=== PATIENT | female | born 1940 | race Caucasian/White ===

== ENCOUNTER 2023-12-04 10:01 | Emergency (ER) | payer MEDICARE, BC ==
[2023-12-04] MEDS: IPRATROPIUM-ALBUTEROL 3 ML NEB INHALATION STA ×2 (10:21→11:17)
[2023-12-04 10:25] LABS: Glucose,Whole Blood 105 mg/dL (70-110)
[2023-12-04 10:33] VITALS: TEMP 98.1
[2023-12-04 10:36] LABS: Basophils # (A) 0.1 k/uL (0-0.2); Basophils % (A) 0 %; Eosinophils # (A) 0.3 k/uL (0-0.7); Eosinophils % (A) 2 %; HCT 46.5 % (34.0-46.0); HGB 15.1 gm/dL (11.4-16.0); Lymphocytes # (A) 2.1 k/uL (1.0-4.8); Lymphocytes % (A) 11 %; MCH 31.6 pg (25.0-35.0); MCHC 32.5 g/dL (31.0-37.0); MCV 97.1 fL (80.0-100.0); Mean Platelet Volume 8.2; Monocytes # (A) 1.2 k/uL (0-1.0); Monocytes % (A) 6 %; Neutrophils # (A) 14.6 k/uL (1.3-7.7); Neutrophils % (A) 79 %; Platelet Count 221 k/uL (150-450); RBC 4.79 m/uL (3.80-5.40); RDW 13.4 % (11.5-15.5); WBC 18.5 k/uL (3.8-10.6)
[2023-12-04 10:37] LABS: INR 0.9 (<1.2); Prothrombin Time 9.9 sec (10.0-12.5)
[2023-12-04 10:50] LABS: Partial Thromboplastin Time 19.2 sec (22.0-30.0)
--- NOTE | 2023-12-04 10:56 | CT ---
EXAMINATION TYPE: CODE STROKE: CT brain wo contr DATE OF EXAM: 12/04/2023 COMPARISON: None HISTORY: 83-year-old female Neuro deficits, cant see out of LT eye, code stroke TECHNIQUE: Examination was done in axial plane without intravenous contrast. Coronal and sagittal r econstructions performed. CT DLP: 1208 mGycm Automated exposure control for dose reduction was used. FINDINGS: There is no evidence of acute intracranial hemorrhage, acute ischemic changes, mass, mass-effect, or extra-axial fluid collection. There is no effacement of cerebral sulci or basal subarachnoid cister ns. There is no midline shift. Barrientos-white matter distinction is preserved. Mild/moderate generalized supratentorial volume loss. Mild ventricular prominence likely due to centr al cerebral atrophy. Moderate patchy confluence white matter hypodensities in both cerebral hemispher es. Moderate atherosclerotic calcifications bilateral carotid siphons. Rightward nasal septal deviation. Left-sided conchal bullosa. Small amount of fluid inferior left mas toid air cells. Paranasal sinuses are clear. Orbits and globes appear intact. IMPRESSION: 1. Mild to moderate generalized atrophy and moderate burden of chronic small vessel ischemic disease. No acute intracranial abnormality seen. 2. Small amount of fluid in the left mastoid air cells. Correlate for any mastoid pain to exclude mas toiditis.
[2023-12-04] MEDS: methylPREDNISolone SOD SUCCI 125 MG/2 ML VIAL IV STA (11:06)
[2023-12-04] MEDS: ASPIRIN 325 MG TAB PO STA (11:12)
[2023-12-04] MEDS: DIPH,PERTUS(ACELL)TETVAC-LF 0.5 ML VIAL IM ONE (11:12)
[2023-12-04] MEDS: TICAGRELOR 90 MG TAB PO STA (11:12)
--- NOTE | 2023-12-04 11:17 | CT ---
EXAMINATION TYPE: CT angio head neck DATE OF EXAM: 12/04/2023 COMPARISON: Brain same day HISTORY: 83 year-old female with neurologic deficit, acute, stroke suspected, unable to see out of le ft eye. TECHNIQUE: Contiguous axial scanning of the head and neck performed with IV Contrast, patient injecte d with 60 mL of Isovue 370. Coronal/sagittal reconstructions performed. 3-D reconstructions generated on a dedicated independent workstation. CT DLP: 314.5 mGycm Automated exposure control for dose reduction was used. FINDINGS: Neck: Advanced emphysematous change in the visualized upper lungs. Mild to moderate atherosclerotic arch calcifications with bovine configuration to the aortic arch. There are mild segmental stenoses at the distal bilateral subclavian arteries. There is a dominant right vertebral artery with mild to moderate atherosclerotic narrowing at its héctor gin. Both vertebral arteries are otherwise patent throughout the course. There is moderate atherosclerotic calcification at the right carotid bifurcation. This results in a m oderate, 60% stenosis of the bifurcation and mild, 25% stenosis of the origin of the ICA. NASCET cri teria was utilized. Remainder of the right ICA is patent. Moderate atherosclerotic calcification and plaque at the left carotid bifurcation and proximal left c arotid artery with mild, 30% stenosis at the carotid bulb and mild, 40% stenosis proximal left ICA ju st above the carotid bulb. NASCET criteria was utilized. HEAD: Dominant right vertebral artery. The nondominant left vertebral artery becomes even more hypoplastic at the V4 segment. Otherwise, the vertebral and basilar arteries are patent. Uniformly small caliber to the basilar artery with persistent origin left TICKET MAKER and a small, patent right posterior commu nicating artery seen. There is cut off of the P2 segment right TICKET MAKER. The bilateral internal carotid arteries show no significant stenosis. Remainder of the anterior circu lation is patent. No aneurysmal change is identified. IMPRESSION: NECK: 1. MODERATE ATHEROSCLEROTIC CHANGE OF THE BILATERAL CAROTID BIFURCATIONS. 2. ON THE RIGHT, THERE IS MODERATE, 60% STENOSIS OF THE BIFURCATION AND MILD, 25% STENOSIS AT THE HÉCTOR GIN OF THE ICA. 3. ON THE LEFT, THERE IS MILD, 30% STENOSIS AT THE CAROTID BULB AND MILD, 40% STENOSIS PROXIMAL ICA J UST ABOVE THE BULB. 4. DOMINANT RIGHT VERTEBRAL ARTERY WITH MILD TO MODERATE stenosis at its origin. 5. Advanced emphysema in the visualized upper lungs. HEAD: 6. RIGHT TICKET MAKER OCCLUSION AT THE P2 SEGMENT. Called to Dr. Cabrera in the ER at 11:15 AM. 7. ANATOMIC VARIATION WITH HYPOPLASTIC V4 SEGMENT LEFT VERTEBRAL ARTERY AND PERSISTENT ORIGIN L EFT TICKET MAKER.
--- NOTE | 2023-12-04 11:21 | CT ---
EXAMINATION TYPE: CT cervical spine wo con DATE OF EXAM: 12/04/2023 COMPARISON: None HISTORY: 83-year-old female with pain after Fall TECHNIQUE: Contiguous axial scanning of the cervical spine without IV contrast. Coronal and sagittal reconstructions performed. CT DLP: 269.3 mGycm Automated exposure control for dose reduction was used. FINDINGS: No craniocervical junction abnormality, predental space widening, or prevertebral soft tissue swellin g. Degenerative change and possible bony ankylosis at the C1 dens articulation. Moderate to advanced disc/endplate degenerative change C5-C7 levels along with hypertrophic facet and uncovertebral joint arthropathy throughout. Degenerative grade 1 anterolisthesis C2-C3, C3-C4, C4-C5, C7-T1, T1-T2, and T2-T3. Disc osteophyte complex may contribute to mild spinal canal stenosis at C4-C5 and C5-C6. No acute fracture seen of the cervical spine. Moderate bilateral neural foraminal stenoses at C5-C6 and mild to moderate C6-C7. IMPRESSION: NO ACUTE FRACTURE OF THE CERVICAL SPINE. Moderate overall spondylotic change with degenerative grade 1 spondylolisthesis C2-C5 levels as well as C7-T3 levels.
--- NOTE | 2023-12-04 11:30 | ED ---
General Adult HPI - General Chief complaint: Shortness of Breath Stated complaint: Fall, hypertension Time Seen by Provider: 12/04/23 10:08 Source: patient, family, EMS, RN notes reviewed, old records reviewed Mode of arrival: EMS Limitations: physical limitation - History of Present Illness Initial comments: Patient is an 83-year-old female presents emergency department for a fall at home. Was found down at home. Is chronically dependent on nasal cannula oxygen. Has a history of COPD, hypertension. States she felt well yesterday at 10:30 PM. Was seen by family yesterday around noon. Woke up this morning feeling "off" and weak on the left side. Was found down in front of her couch after falling. She states she did not lose consciousness. Unknown if she hit her head. Is not on blood thinners. Has a left arm skin tear. Complaining of left forearm pain as well. However patient is also complaining of left-sided weakness. EMS arrived and found that she was slumping more to the left and seemed to have some gaze deviation. Presents for further evaluation at this time. - Related Data Allergies Allergy/AdvReac Type Severity Reaction Status Date / Time No Known Allergies Allergy Verified 12/04/23 10:11 Review of Systems ROS Statement: Those systems with pertinent positive or pertinent negative responses have been documented in the HPI. Review of Systems: CONST: Denies fever EYES: Denies blurry vision ENT: Denies nasal congestion C/V: Denies Chest pain RESP: Denies shortness of breath GI: Denies abdominal pain : Denies dysuria SKIN: Denies rash. MSK: Endorses arm pain NEURO: Endorses left-sided weakness ROS Other: All systems not noted in ROS Statement are negative. Past Medical History Past Medical History: COPD, Hypertension Additional Past Medical History / Comment(s): 3LPM NC History of Any Multi-Drug Resistant Organisms: None Reported Past Surgical History: No Surgical Hx Reported Past Psychological History: No Psychological Hx Reported Smoking Status: Former smoker Past Alcohol Use History: Daily Past Drug Use History: None Reported General Exam - General Exam Comments Initial Comments: General: Appears in no acute distress. HEAD: Normal with no signs of head trauma. EYES: PERRLA, conjunctiva normal, no discharge. Pupils are 3 mm and equal bilaterally. Right-sided gaze deviation and preference. ENT: Hearing grossly intact, normal oropharynx. RESPIRATORY: Clear breath sounds bilaterally. No wheezes, rales, or rhonchi. C/V: Regular rate and rhythm. S1 and S2 auscultated, no edema, peripheral pulses 2+ and intact throughout ABD: Abd is soft, nontender, nondistended EXT: Weakness on the left upper and left lower extremity. Pelvis is stable. No midline spinal tenderness to palpation. No obvious deformities. Tenderness of the left elbow. SKIN: Skin tear on the left forearm. Bruising on the left forearm. NEURO: Alert and oriented x 4. NIH is 7. 1 point each for left upper and right left lower extremity weakness. 2 points for left upper extremity left lower extremity ataxia. 1 point for left-sided facial droop. 1 point for right-sided gaze deviation that does appear extinguishable. 1 point for left-sided partial hemianopsia. GCS currently 15. Limitations: physical limitation Course Vital Signs 12/04/23 12/04/23 12/04/23 10:02 10:23 10:32 Temperature 98.1 F Pulse Rate 112 H 106 H 103 H Respiratory 18 20 20 Rate Blood Pressure 166/102 O2 Sat by Pulse 96 Oximetry 12/04/23 12/04/23 11:17 11:26 Temperature Pulse Rate 103 H 106 H Respiratory 24 22 Rate Blood Pressure O2 Sat by Pulse Oximetry Medical Decision Making - Medical Decision Making Was pt. sent in by a medical professional or institution ([facility], OVEN HEATER HELPER, urgent care, hospital, or jail...) When possible be specific @ -No Did you speak to anyone other than the patient for history (EMS, parent, family, police, friend...)? What history was obtained from this source @ -EMS provided the history of how they found her at home with a left-sided slu mping and left-sided weakness. Did you review nursing and triage notes (agree or disagree)? Why? @ -I reviewed and agree with nursing and triage notes Were old charts reviewed (outside hosp., previous admission, EMS record, old EKG, old radiological studies, urgent care reports/EKG's, jail records)? Report findings @ -Old charts reviewed Differential Diagnosis (chest pain, altered mental status, abdominal pain women, abdominal pain men, vaginal bleeding, weakness, fever, dyspnea, syncope, headache, dizziness, GI bleed, back pain, seizure, CVA, palpatations, mental health, musculoskeletal)? @ -Differential CVA Ischemic stroke, hemorrhagic stroke, brain tumor, atypical migraine, Wernicke's encephalopathy, seizure, multiple sclerosis, meningitis, encephalitis, hypoglycemia, Guillain-Savage, electrolytes disturbance, myasthenia gravis.... This is not meant to be an all-inclusive list EKG interpreted by me (3pts min.). @ -As above X-rays interpreted by me (1pt min.). @ -X-rays of the elbow, forearm, chest unremarkable. CT interpreted by me (1pt min.). @ -CT brain reveals no obvious acute intracranial process. CT angiogram of the head and neck reveals a right TRAY SETTER occlusion. CT cervical spine negative for any obvious traumatic injury. U/S interpreted by me (1pt. min.). @ -None done What testing was considered but not performed or refused? (CT, X-rays, U/S, labs)? Why? @ -None What meds were considered but not given or refused? Why? @ -Considered thrombolytics however patient is outside of the window as she woke up with symptoms. Last known well was 10:30 PM last night. Did you discuss the management of the patient with other professionals (professionals i.e. , PA, OVEN HEATER HELPER, lab, RT, psych nurse, social service technician, community service technician, teacher, air defense control officer, hospice case manager)? Give summary @ -Discussed with Dr. Thompson of [facility]. He was in agreement with workup. He called me back after reviewing the imaging and saw the right TRAY SETTER segment occlusion. He would like the patient transferred to [facility] for further care and thrombectomy. Patient's family and patient were in agreement with this plan. He requested patient have permissive hypertension but treat if systolics over 220 or diastolics over 120. Requested 180 mg of Brilinta and 325 mg of aspirin. Was smoking cessation discussed for >3mins.? @ -No Was critical care preformed (if so, how long)? @ -Yes, 45 minutes. Were there social determinants of health that impacted care today? How? (Homeles sness, low income, unemployed, alcoholism, drug addiction, transportation, low edu. Level, literacy, decrease access to med. care, half-way, rehab)? @ -No Was there de-escalation of care discussed even if they declined (Discuss DNR or withdrawal of care, Hospice)? DNR status @ -No What co-morbidities impacted this encounter? (DM, HTN, Smoking, COPD, CAD, Cancer, CVA, ARF, Chemo, Hep., AIDS, mental health diagnosis, sleep apnea, morbid obesity)? @ -COPD Was patient admitted / discharged? Hospital course, mention meds given and route, prescriptions, significant lab abnormalities, going to OR and other pertinent info. @ -Based on the patient's presentation and physical exam, presents with a COPD exacerbation as well as concern for a stroke. Last known well was 10:30 PM last night. Is not a thrombolytic candidate as risks outweigh the benefits and she is outside of the window. However his code stroke was activated. Vital signs remarkable for mild hypertension. Patient was in agreement this plan. She will be given IV steroids as well as multiple breathing treatments here for COPD as she is chronically oxygen dependent. She was in agreement this plan. Normoxic on her baseline 3 L nasal cannula. She also has a left arm injury and we will obtain basic x-rays there. She does have a skin tear which was covered and treated. Tetanus updated. EKG showed no signs of acute ischemia. CT brain and CT angiogram of the head and neck reveals a right-sided TRAY SETTER occlusion. Dr. Thompson is of neuro crit care notified me of the finding after we initially discussed and he was in agreement the workup. Recommended Brilinta and aspirin to be initiated. Permissive hypertension with systolics less than 220 and diastolics less than 120. Laboratory studies at this time returned remarkable for slight leukocytosis of 18.5 likely secondary to underlying stroke. Remainder the labs still pending. I updated the patient. NIH remains 7. Patient's breathing is improved. She will be given an additional breathing treatment as well as the Brilinta and aspirin. Cardene drip was ordered if needed for transit to [facility]. Instructions given to EMS to initiate if systolics go above 220 or diastolic above 120. Currently it will not be started. Patient and family were in agreement this plan. I answered all questions that they had. Patient be transferred in serious condition to [facility] for thrombectomy. X-rays returned after patient left were negative for any obvious fracture. Labs returned after the patient left as well. These were remarkable for leukocytosis of 18.5. Patient's troponin also elevated to 0.25. Nursing staff did call the accepting hospital and update them on the results of this. Likely secondary to underlying stroke or period of hypoxia as the patient was found without her oxygen on this morning. Undiagnosed new problem with uncertain prognosis? @ -No Drug Therapy requiring intensive monitoring for toxicity (Heparin, Nitro, Insulin, Cardizem)? @ -No Were any procedures done? @ -No Diagnosis/symptom? @ -CVA, COPD exacerbation, fall, skin tear Acute, or Chronic, or Acute on Chronic? @ -Acute Uncomplicated (without systemic symptoms) or Complicated (systemic symptoms)? @ -Complicated Side effects of treatment? @ -No Exacerbation, Progression, or Severe Exacerbation? @ -No Poses a threat to life or bodily function? How? (Chest pain, USA, ND, pneumonia, PE, COPD, DKA, ARF, appy, cholecystitis, CVA, Diverticulitis, Homicidal, Jacob icidal, threat to staff... and all critical care pts) @ -Yes - Lab Data Result diagrams: 12/04/23 10:13 12/04/23 11:02 Lab Results 12/04/23 12/04/23 12/04/23 Range/Units 10:13 10:13 10:14 WBC 18.5 H (3.8-10.6) k/uL RBC 4.79 (3.80-5.40) m/uL Hgb 15.1 (11.4-16.0) gm/dL Hct 46.5 H (34.0-46.0) % MCV 97.1 (80.0-100.0) fL MCH 31.6 (25.0-35.0) pg MCHC 32.5 (31.0-37.0) g/dL RDW 13.4 (11.5-15.5) % Plt Count 221 (150-450) k/uL MPV 8.2 Neutrophils % 79 % Lymphocytes % 11 % Monocytes % 6 % Eosinophils % 2 % Basophils % 0 % Neutrophils # 14.6 H (1.3-7.7) k/uL Lymphocytes # 2.1 (1.0-4.8) k/uL Monocytes # 1.2 H (0-1.0) k/uL Eosinophils # 0.3 (0-0.7) k/uL Basophils # 0.1 (0-0.2) k/uL PT 9.9 L (10.0-12.5) sec INR 0.9 (<1.2) APTT 19.2 L (22.0-30.0) sec Sodium (137-145) mmol/L Potassium (3.5-5.1) mmol/L Chloride (98-107) mmol/L Carbon Dioxide (22-30) mmol/L Anion Gap mmol/L BUN (7-17) mg/dL Creatinine (0.52-1.04) mg/dL Est GFR (CKD-EPI)AfAm (>60 ml/min/1.73 sqM) Est GFR (CKD-EPI)NonAf (>60 ml/min/1.73 sqM) Glucose (74-99) mg/dL POC Glucose (mg/dL) 105 (70-110) mg/dL POC Glu Cosmetology Professor ID Henderson, Chandni Calcium (8.4-10.2) mg/dL Total Bilirubin (0.2-1.3) mg/dL AST (14-36) U/L ALT (4-34) U/L Alkaline Phosphatase (38-126) U/L Creatine Kinase (30-135) U/L Troponin I (0.000-0.034) ng/mL Total Protein (6.3-8.2) g/dL Albumin (3.5-5.0) g/dL 12/04/23 12/04/23 Range/Units 11:02 11:02 WBC (3.8-10.6) k/uL RBC (3.80-5.40) m/uL Hgb (11.4-16.0) gm/dL Hct (34.0-46.0) % MCV (80.0-100.0) fL MCH (25.0-35.0) pg MCHC (31.0-37.0) g/dL RDW (11.5-15.5) % Plt Count (150-450) k/uL MPV Neutrophils % % Lymphocytes % % Monocytes % % Eosinophils % % Basophils % % Neutrophils # (1.3-7.7) k/uL Lymphocytes # (1.0-4.8) k/uL Monocytes # (0-1.0) k/uL Eosinophils # (0-0.7) k/uL Basophils # (0-0.2) k/uL PT (10.0-12.5) sec INR (<1.2) APTT (22.0-30.0) sec Sodium 136 L (137-145) mmol/L Potassium 3.8 (3.5-5.1) mmol/L Chloride 102 (98-107) mmol/L Carbon Dioxide 30 (22-30) mmol/L Anion Gap 4 mmol/L BUN 16 (7-17) mg/dL Creatinine 0.98 (0.52-1.04) mg/dL Est GFR (CKD-EPI)AfAm 62 (>60 ml/min/1.73 sqM) Est GFR (CKD-EPI)NonAf 54 (>60 ml/min/1.73 sqM) Glucose 103 H (74-99) mg/dL POC Glucose (mg/dL) (70-110) mg/dL POC Glu Cosmetology Professor ID Calcium 8.9 (8.4-10.2) mg/dL Total Bilirubin 1.1 (0.2-1.3) mg/dL AST 25 (14-36) U/L ALT 16 (4-34) U/L Alkaline Phosphatase 81 (38-126) U/L Creatine Kinase 73 (30-135) U/L Troponin I 0.250 H* (0.000-0.034) ng/mL Total Protein 5.6 L (6.3-8.2) g/dL Albumin 3.1 L (3.5-5.0) g/dL - EKG Data -: EKG Interpreted by Me EKG Comments: 12-lead Electrocardiogram Interpretation Note EKG was reviewed and interpreted by myself. 12-lead ECG performed at 1016 is int erpreted by me as revealing sinus tachycardia at a rate of 107 beats per minute. [place] is normal. SD interval is 150 ms, QRS duration is 86 ms, QTc is 396 ms.. There were no ST or T wave abnormalities to suggest myocardial ischemia or injury. R wave progression across the precordium was satisfactory. By my interpretation this EKG is non-diagnostic for acute ischemia. Critical Care Time Critical Care Time: Yes Total Critical Care Time: 45 Disposition Clinical Impression: CVA (cerebral vascular accident), Skin tear, COPD exacerbation, Fall Disposition: OTHER INSTITUTION NOT DEFINED Condition: Serious Referrals: Hayden Lizarraga MD [Primary Care Provider] - 1-2 days Time of Disposition: 11:30 - Out of Hospital Transfer - Req. Specs Out of Hospital Transfer - Requested Specifics: Other Emergency Center (Transfer to [facility] for thrombectomy for CVA with Dr. Thompson)
[2023-12-04] MEDS: niCARdipine 20 MG in SODIUM CHLORIDE 0.9% 192 ML IV SCH (11:33)
[2023-12-04 11:37] LABS: ALT 16 U/L (4-34); AST 25 U/L (14-36); African American GFR (CKD) 62 (>60 ml/min/1.73 sqM); Albumin 3.1 g/dL (3.5-5.0); Alkaline Phosphatase 81 U/L (38-126); Anion Gap 4 mmol/L; Blood Urea Nitrogen 16 mg/dL (7-17); Calcium 8.9 mg/dL (8.4-10.2); Carbon Dioxide 30 mmol/L (22-30); Chloride 102 mmol/L (98-107); Creatine Kinase 73 U/L (30-135); Glucose 103 mg/dL (74-99); Non-African American GFR(CKD) 54 (>60 ml/min/1.73 sqM); Potassium 3.8 mmol/L (3.5-5.1); Sodium 136 mmol/L (137-145); Total Bilirubin 1.1 mg/dL (0.2-1.3); Total Protein 5.6 g/dL (6.3-8.2)
--- NOTE | 2023-12-04 11:50 | XR ---
EXAMINATION TYPE: XR chest 1V portable DATE OF EXAM: 12/04/2023 COMPARISON: 11/11/2017 INDICATION: Short of breath TECHNIQUE: Single frontal view of the chest is obtained. FINDINGS: The heart size is normal. The pulmonary vasculature is normal. The lungs are clear. IMPRESSION: 1. No acute pulmonary process.
--- NOTE | 2023-12-04 11:52 | XR ---
EXAMINATION TYPE: XR forearm LT DATE OF EXAM: 12/04/2023 COMPARISON: None HISTORY: Pain, fall TECHNIQUE: 2 view left forearm FINDINGS: No acute fracture or dislocation is evident. Joint spaces appear preserved. Soft tissues ar e normal. Follow up exams can be performed 7-10 days from acute trauma for continued pain. IMPRESSION: 1. No acute osseous abnormality left forearm
--- NOTE | 2023-12-04 11:53 | XR ---
EXAMINATION TYPE: XR elbow limited LT DATE OF EXAM: 12/04/2023 COMPARISON: None HISTORY: Fall, pain TECHNIQUE: 2 view left elbow FINDINGS: Radius aligns normally with the humerus. The anterior fat pad is normal. No elevation of po sterior fat pad is evident which is normal. Soft tissues are normal. Follow up exams can be performed 7-10 days from acute trauma for continued pain IMPRESSION: 1. No acute osseous abnormality left elbow
[2023-12-04 12:00] VITALS: PULSE 106; RESP 22
[2023-12-04 15:32] VITALS: BP 188/96
== END 2023-12-04 11:47 | disposition other institution (70) ==
LOC: EC 10:01
DX: S51.812A Laceration without foreign body of left forearm, initial encounter (principal); I63.9 Cerebral infarction, unspecified; J44.1 Chronic obstructive pulmonary disease with (acute) exacerbation; I66.21 Occlusion and stenosis of right posterior cerebral artery; R00.1 Bradycardia, unspecified; R29.707 NIHSS score 7; Z23 Encounter for immunization; Z87.891 Personal history of nicotine dependence; Z99.81 Dependence on supplemental oxygen; W18.30XA Fall on same level, unspecified, initial encounter; Y92.009 Unspecified place in unspecified non-institutional (private) residence as the place of occurrence of the external cause
CPT/HCPCS: 36415; 94640 ×2; 93005; 80053; 82550; 84484; 85025; 85610; 85730; 73070; 73090; 71045; 72125; 70496; 70450; 70498; 90715; 99291; 96374; 96375; 90471; Q9967; J2919

== ENCOUNTER 2024-02-05 12:38 | Inpatient (IN) | payer MEDICARE, BC ==
[2024-02-05] MEDS: SODIUM CHLORIDE 0.9% 500 ML 500 ML IV STA (13:31)
--- NOTE | 2024-02-05 13:40 | ED ---
General Adult HPI - General Chief complaint: Weakness Stated complaint: abn labs/weakness/dehydration Time Seen by Provider: 02/05/24 12:52 Source: patient, EMS, RN notes reviewed, old records reviewed Mode of arrival: EMS Limitations: no limitations - History of Present Illness Initial comments: 83 presenting with abnormal labs which were obtained at the skilled nursing where she resides. Patient had complained of abdominal pain over the past 24 hours. She had x-ray and laboratory testing. At the time my evaluation she is denying current abdominal pain. She was noted to have all elevated white blood cell count and to be in acute renal failure. Additionally the patient did have elevated liver enzymes. Patient is on chronic oxygen. She denies fever. She does report nausea and very poor appetite over the past several days. - Related Data Allergies Allergy/AdvReac Type Severity Reaction Status Date / Time No Known Allergies Allergy Verified 12/04/23 10:11 Review of Systems ROS Statement: Those systems with pertinent positive or pertinent negative responses have been documented in the HPI. ROS Other: All systems not noted in ROS Statement are negative. Past Medical History Past Medical History: COPD, Hypertension Additional Past Medical History / Comment(s): 3LPM NC History of Any Multi-Drug Resistant Organisms: None Reported Past Surgical History: No Surgical Hx Reported Past Psychological History: No Psychological Hx Reported Smoking Status: Former smoker Past Alcohol Use History: Daily Past Drug Use History: None Reported General Exam Limitations: no limitations General appearance: alert, cachectic Head exam: Present: atraumatic, normocephalic Eye exam: Present: normal appearance, PERRL ENT exam: Present: mucous membranes dry Neck exam: Present: normal inspection. Absent: tenderness, meningismus Respiratory exam: Present: decreased breath sounds. Absent: respiratory distress, wheezes Cardiovascular Exam: Present: regular rate, normal rhythm GI/Abdominal exam: Present: soft. Absent: distended, tenderness, guarding Extremities exam: Present: normal inspection, normal capillary refill Neurological exam: Present: alert, oriented X3 Skin exam: Present: warm, dry, intact. Absent: cyanosis, diaphoretic Course Vital Signs 02/05/24 12:49 Temperature 97.5 F L Pulse Rate 61 Respiratory 18 Rate Blood Pressure 111/53 O2 Sat by Pulse 97 Oximetry Medical Decision Making - Medical Decision Making Was pt. sent in by a medical professional or institution (, PA, B OPERATOR, urgent care, hospital, or skilled nursing...) When possible be specific @ -No Did you speak to anyone other than the patient for history (EMS, parent, family, police, friend...)? What history was obtained from this source @ -No Did you review nursing and triage notes (agree or disagree)? Why? @ -I reviewed and agree with nursing and triage notes Were old charts reviewed (outside hosp., previous admission, EMS record, old EKG, old radiological studies, urgent care reports/EKG's, skilled nursing records)? Report findings @ -No old charts were reviewed Differential diagnosis weakness EKG interpreted by me (3pts min.). @ -Sinus rhythm rate of 93, DE interval 147, QRS duration 94, QTc 387 tremor artifact limiting assessment, no ST segment elevation. X-rays interpreted by me (1pt min.). @ -Chest x-ray ordered, pending CT interpreted by me (1pt min.). @ -None done U/S interpreted by me (1pt. min.). @US shows cholelithiasis with thickened gallbladder wall. General surgery informed. What testing was considered but not performed or refused? (CT, X-rays, U/S, labs)? Why? @ -None What meds were considered but not given or refused? Why? @ -None Did you discuss the management of the patient with other professionals (professionals i.e. , PA, B OPERATOR, lab, RT, psych nurse, social sciences lecturer, tiler, teacher, project control officer, pillowcase folder)? Give summary @Case discussed with Dr. Lizarraga and Dr. Sinclair covering for general surgery patient will be admitted with consultation to nephrology, gastroenterology, and general surgery. Was smoking cessation discussed for >3mins.? @ -No Was critical care preformed (if so, how long)? @ -[Yes 35 minutes Were there social determinants of health that impacted care today? How? (Homelessness, low income, unemployed, alcoholism, drug addiction, transportation, low edu. Level, literacy, decrease access to med. care, care home, rehab)? @ -No Was there de-escalation of care discussed even if they declined (Discuss DNR or withdrawal of care, Hospice)? DNR status @ -No What co-morbidities impacted this encounter? (DM, HTN, Smoking, COPD, CAD, Cancer, CVA, ARF, Chemo, Hep., AIDS, mental health diagnosis, sleep apnea, morbid obesity)? @ -Oxygen dependent Was patient admitted / discharged? Hospital course, mention meds given and route, prescriptions, significant lab abnormalities, going to OR and other pertinent info. @ -[83-year-old female presenting with nausea, dehydration, abnormal lab testing. Labs were repeated and the patient has a leukocytosis at 24,000 she has been elevated BUN and creatinine, elevated liver enzymes. Troponin is elevated. I suspect that the majority of her lab abnormalities are secondary to dehydration and poor intake. She is covered with antibiotics. She is admitted with consultations to general surgery, gastroenterology and nephrology. IV antibiotics and IV fluids will be continued at this time. Blood cultures, urinalysis and urine culture are pending. Undiagnosed new problem with uncertain prognosis? @ -No Drug Therapy requiring intensive monitoring for toxicity (Heparin, Nitro, Insul in, Cardizem)? @ -No Were any procedures done? @ -No Diagnosis/symptom? @ -NARAYAN, leukocytosis, concern for acute cholecystitis, transaminitis, hyperbilirubinemia Acute, or Chronic, or Acute on Chronic? @ -Acute Uncomplicated (without systemic symptoms) or Complicated (systemic symptoms)? @ -Default Side effects of treatment? @ -No Exacerbation, Progression, or Severe Exacerbation? @ -No Poses a threat to life or bodily function? How? (Chest pain, [place], [place], pneumonia, PE, COPD, DKA, ARF, appy, cholecystitis, CVA, Diverticulitis, Homicidal, Suicidal, threat to staff... and all critical care pts) @ -Yes, sepsis - Lab Data Result diagrams: 02/05/24 13:18 02/05/24 13:18 Lab Results 02/05/24 02/05/24 02/05/24 Range/Units 13:18 13:18 13:18 WBC 24.5 H (3.8-10.6) k/uL RBC 3.88 (3.80-5.40) m/uL Hgb 12.6 (11.4-16.0) gm/dL Hct 38.7 (34.0-46.0) % MCV 99.7 (80.0-100.0) fL MCH 32.4 (25.0-35.0) pg MCHC 32.5 (31.0-37.0) g/dL RDW 14.3 (11.5-15.5) % Plt Count 299 (150-450) k/uL MPV 8.1 Neutrophils % 91 % Lymphocytes % 3 % Monocytes % 4 % Eosinophils % 1 % Basophils % 0 % Neutrophils # 22.3 H (1.3-7.7) k/uL Lymphocytes # 0.7 L (1.0-4.8) k/uL Monocytes # 1.0 (0-1.0) k/uL Eosinophils # 0.2 (0-0.7) k/uL Basophils # 0.0 (0-0.2) k/uL Macrocytosis Slight Sodium 136 L (137-145) mmol/L Potassium 5.5 H (3.5-5.1) mmol/L Chloride 101 (98-107) mmol/L Carbon Dioxide 27 (22-30) mmol/L Anion Gap 8 mmol/L BUN 83 H (7-17) mg/dL Creatinine 3.33 H (0.52-1.04) mg/dL Est GFR (CKD-EPI)AfAm 14 (>60 ml/min/1.73 sqM) Est GFR (CKD-EPI)NonAf 12 (>60 ml/min/1.73 sqM) Glucose 94 (74-99) mg/dL Plasma Lactic Acid Cong 1.2 (0.7-2.0) mmol/L Calcium 8.5 (8.4-10.2) mg/dL Magnesium 2.5 H (1.6-2.3) mg/dL Total Bilirubin 1.8 H (0.2-1.3) mg/dL AST 197 H (14-36) U/L ALT 275 H (4-34) U/L Alkaline Phosphatase 615 H (38-126) U/L Troponin I (0.000-0.034) ng/mL Total Protein 5.3 L (6.3-8.2) g/dL Albumin 2.9 L (3.5-5.0) g/dL 02/05/24 Range/Units 13:18 WBC (3.8-10.6) k/uL RBC (3.80-5.40) m/uL Hgb (11.4-16.0) gm/dL Hct (34.0-46.0) % MCV (80.0-100.0) fL MCH (25.0-35.0) pg MCHC (31.0-37.0) g/dL RDW (11.5-15.5) % Plt Count (150-450) k/uL MPV Neutrophils % % Lymphocytes % % Monocytes % % Eosinophils % % Basophils % % Neutrophils # (1.3-7.7) k/uL Lymphocytes # (1.0-4.8) k/uL Monocytes # (0-1.0) k/uL Eosinophils # (0-0.7) k/uL Basophils # (0-0.2) k/uL Macrocytosis Sodium (137-145) mmol/L Potassium (3.5-5.1) mmol/L Chloride (98-107) mmol/L Carbon Dioxide (22-30) mmol/L Anion Gap mmol/L BUN (7-17) mg/dL Creatinine (0.52-1.04) mg/dL Est GFR (CKD-EPI)AfAm (>60 ml/min/1.73 sqM) Est GFR (CKD-EPI)NonAf (>60 ml/min/1.73 sqM) Glucose (74-99) mg/dL Plasma Lactic Acid Cong (0.7-2.0) mmol/L Calcium (8.4-10.2) mg/dL Magnesium (1.6-2.3) mg/dL Total Bilirubin (0.2-1.3) mg/dL AST (14-36) U/L ALT (4-34) U/L Alkaline Phosphatase (38-126) U/L Troponin I 0.142 H* (0.000-0.034) ng/mL Total Protein (6.3-8.2) g/dL Albumin (3.5-5.0) g/dL Disposition Clinical Impression: Dehydration, NARAYAN (acute kidney injury), Hyperbilirubinemia Disposition: ADMITTED IP TO THIS HOSP Condition: Stable Is patient prescribed a controlled substance at d/c from ED?: No Referrals: Hayden Lizarraga MD [Primary Care Provider] - 1-2 days Time of Disposition: 14:49
[2024-02-05 13:42] LABS: Basophils % (A) 0 %; Eosinophils # (A) 0.2 k/uL (0-0.7); Eosinophils % (A) 1 %; HCT 38.7 % (34.0-46.0); HGB 12.6 gm/dL (11.4-16.0); Lymphocytes # (A) 0.7 k/uL (1.0-4.8); Lymphocytes % (A) 3 %; MCH 32.4 pg (25.0-35.0); MCHC 32.5 g/dL (31.0-37.0); MCV 99.7 fL (80.0-100.0); Macrocytosis Slight; Mean Platelet Volume 8.1; Monocytes % (A) 4 %; Neutrophils # (A) 22.3 k/uL (1.3-7.7); Neutrophils % (A) 91 %; Platelet Count 299 k/uL (150-450); RBC 3.88 m/uL (3.80-5.40); RDW 14.3 % (11.5-15.5); WBC 24.5 k/uL (3.8-10.6)
[2024-02-05 13:52] LABS: ALT 275 U/L (4-34); African American GFR (CKD) 14 (>60 ml/min/1.73 sqM); Anion Gap 8 mmol/L; Blood Urea Nitrogen 83 mg/dL (7-17); Calcium 8.5 mg/dL (8.4-10.2); Carbon Dioxide 27 mmol/L (22-30); Chloride 101 mmol/L (98-107); Glucose 94 mg/dL (74-99); Non-African American GFR(CKD) 12 (>60 ml/min/1.73 sqM); Sodium 136 mmol/L (137-145); Total Bilirubin 1.8 mg/dL (0.2-1.3)
[2024-02-05 14:11] LABS: AST 197 U/L (14-36); Albumin 2.9 g/dL (3.5-5.0); Alkaline Phosphatase 615 U/L (38-126); Magnesium 2.5 mg/dL (1.6-2.3); Potassium 5.5 mmol/L (3.5-5.1); Total Protein 5.3 g/dL (6.3-8.2)
[2024-02-05] MEDS: SODIUM CHLORIDE 0.9% 1,000 ML IV STA (14:18)
--- NOTE | 2024-02-05 14:38 | US ---
EXAMINATION TYPE: US gallbladder DATE OF EXAM: 02/05/2024 COMPARISON: NONE CLINICAL INDICATION: Female, 83 years old with history of Leukocytosis, hyperbilirubinemia; TECHNIQUE: Multiple sonographic images of the right upper quadrant are obtained. FINDINGS: EXAM MEASUREMENTS: Liver Length: 14.9 cm Gallbladder Wall: 0.34 cm CBD: 0.56 cm Right Kidney: 10.2 x 4.2 x 4.6 cm HAND SEWER NOTES: Exam is limited due to gas. Pancreas: Tail was not visualized. Liver: Appears coarse in echotexture. Gallbladder: Appears distended measuring 10.2 cm in length. Multiple hyperechoic foci with photocopy operator ior shadowing seen within, cluster seen measuring 2.4 x 1.6 x 0.7 cm. Wall measures upper limits. Evidence for sonographic Ross's sign: No CBD: Portions seen appear wnl Right Kidney: Anechoic area seen upper pole: 2.5 x 2.5 x 1.9 cm. IMPRESSION: 1. About hydrops with multiple shadowing gallstones. Gallbladder wall is mildly thickened. Correlate clinically. 2. Hepatic steatosis.
[2024-02-05] MEDS ORDERED: NALOXONE 0.4 MG/ML 1 ML VIAL IV PRN (14:42)
[2024-02-05] MEDS ORDERED: ONDANSETRON 4 MG/2 ML VIAL IVP PRN (14:42)
--- NOTE | 2024-02-05 15:07 | XR ---
EXAMINATION TYPE: XR chest 2V DATE OF EXAM: 02/05/2024 COMPARISON: 12/04/2023 HISTORY: Shortness of breath TECHNIQUE: Frontal and lateral views of the chest are obtained. FINDINGS: Scattered senescent parenchymal changes noted. Hyperinflation compatible with COPD. No evidence for infiltrate. No evidence for atelectasis. Heart size is stable. Mediastinal structures are stable and grossly unremarkable. No evidence for hilar prominence. Degenerative changes dorsal spine. IMPRESSION: 1. No evidence for acute pulmonary disease.
[2024-02-05 15:34] LABS: INR 0.9 (<1.2); Prothrombin Time 9.9 sec (10.0-12.5)
[2024-02-05 15:41] LABS: Partial Thromboplastin Time 18.4 sec (22.0-30.0)
[2024-02-05] MEDS: PIPERACILLIN-TAZOBACTAM 3.375 GM in SODIUM CHLORIDE 0.9% 100 ML IVPB SCH (16:18)
[2024-02-05 16:53] LABS: Appearance,Urine Cloudy (Clear); Bacteria,Urine Occasional /hpf; Bilirubin,Urine Negative (Negative); Blood,Urine Large (Negative); Color,Urine Light Yellow; Glucose,Urine (UA) Negative (Negative); Hyaline Casts,Urine 1 /lpf (0-2); Ketones,Urine Negative (Negative); Leukocyte Esterase,Urine Small (Negative); Mucus,Urine Rare /hpf; Nitrite,Urine Negative (Negative); Protein,Urine 1+ (Negative); RBC,Urine 47 /hpf (0-5); Specific Gravity,Urine 1.011 (1.001-1.035); Squamous Epithelial Cell,Urine <1 /hpf (0-4); Urobilinogen,Urine <2.0 mg/dL (<2.0); WBC,Urine 4 /hpf (0-5)
[2024-02-05 20:50] LABS: Glucose,Whole Blood 82 mg/dL (70-110)
[2024-02-05] MEDS ORDERED: IPRATROPIUM-ALBUTEROL 3 ML NEB INHALATION PRN (21:47)
[2024-02-05] MEDS ORDERED: HYDROcodone/APAP 5-325MG 1 EACH TAB PO PRN (21:49)
[2024-02-05] MEDS ORDERED: bisacodyL 10 MG SUPP RECTAL PRN (22:00)
[2024-02-05] MEDS ORDERED: ARTIFICIAL TEARS-HYPROMELLOSE DROPS 15 ML BTL BOTH EYES PRN (22:00)
[2024-02-05] MEDS: ACETAMINOPHEN TAB 325 MG TAB PO PRN (22:45)
--- NOTE | 2024-02-05 22:58 | P.GSCN ---
History of Present Illness Consult date: 02/05/24 History of present illness: Patient seen and evaluated. General surgery consulted due to abnormal ultrasound demonstrating hydrops of the gallbladder including gallstones. Patient is on oxygen. Her primary concern includes pain along her bilateral foot. She denies any abdominal pain. At the time of my assessment patient was being evaluated by nurse including outreach assistant. Do recommend HIDA scan to exclude acute cholecystitis. Due to her medical comorbidities, may be candidate for cholecystostomy tube. Again, patient denies any abdominal symptoms. May warrant from cardiac including pulmonary risk assessment for optimization should surgery be warranted. Care plan described with patient with additional recommendations following HIDA scan. Past Medical History Past Medical History: COPD, Hypertension Additional Past Medical History / Comment(s): 3LPM [place] History of Any Multi-Drug Resistant Organisms: None Reported Past Surgical History: No Surgical Hx Reported Past Anesthesia/Blood Transfusion Reactions: Unable to Obtain Type of Cardiac Device: Loop Device Placement Date:: Unsure of date per patient Past Psychological History: No Psychological Hx Reported Smoking Status: Former smoker Past Alcohol Use History: Daily Past Drug Use History: None Reported - Past Family History Mother Family Medical History: Cancer, Dementia Additional Family Medical History / Comment(s): Mother had breast cancer and passed from dementia. Medications and Allergies Home Medications Medication Instructions Recorded Confirmed Type Acetaminophen [Tylenol] 650 mg PO Q4H PRN 02/05/24 02/05/24 History Aspirin [[place] Aspirin EC] 81 mg PO DAILY@0800 02/05/24 02/05/24 History Atorvastatin [Lipitor] 80 mg PO HS 02/05/24 02/05/24 History Budesonide [Pulmicort] 1 mg INHALATION RT-BID@0800,209902/05/24 02/05/24 History Cetirizine HCl [Zyrtec] 10 mg PO HS@209902/05/24 02/05/24 History Ensure Clear 120 ml PO TID@0800,1200,1700 02/05/24 02/05/24 History Fluticasone Nasal [place] [Flonase 2 spray EA NOSTRIL HS@21302/05/24 02/05/24 History Nasal [place]] Furosemide [Lasix] 20 mg PO DAILY@0800 02/05/24 02/05/24 History Ipratropium-Albuterol Nebulize 3 ml INHALATION RT-Q4H PRN 02/05/24 02/05/24 History [Duoneb 0.5 mg-3 mg/3 ml Soln] Ipratropium-Albuterol Nebulize 3 ml INHALATION RT-QID@00,06,12,18 02/05/24 02/05/24 History [Duoneb 0.5 mg-3 mg/3 ml Soln] Lidocaine External Gel 4% 1 applic TOPICAL DAILY@0800 02/05/24 02/05/24 History Losartan [Cozaar] 25 mg PO DAILY@0800 02/05/24 02/05/24 History Magnesium Hydroxide [Milk of 7,200 mg PO Q48H PRN 02/05/24 02/05/24 History Magnesia Concentrate] Na Phos,M-B/Na Phos,Di-Ba [Fleet 133 ml RECTAL DAILY PRN 02/05/24 02/05/24 History Adult] Ondansetron [Zofran] 4 mg PO Q6H PRN 02/05/24 02/05/24 History Pantoprazole Sodium [Protonix] See Taper PO DIRECTED 02/05/24 02/05/24 History Polyvinyl Alcohol/Povidone 1 applic BOTH EYES BID PRN 02/05/24 02/05/24 History [[place] Eye Drop] Potassium Chloride ER [K-Dur 20] 20 meq PO DAILY@1700 02/05/24 02/05/24 History Saline Nasal Gel [[place] Nasal Gel] 1 applic EA NOSTRIL BID 02/05/24 02/05/24 History Sennosides [Senokot] 8.6 mg PO BID@0800,1700 02/05/24 02/05/24 History bisacodyL [Dulcolax] 10 mg RECTAL DAILY PRN 02/05/24 02/05/24 History Allergies Allergy/AdvReac Type Severity Reaction Status Date / Time No Known Allergies Allergy Verified 02/05/24 14:46 Surgical - Exam Vital Signs Temp Pulse Resp BP Pulse Ox 97.5 F L 61 18 111/53 97 02/05/24 12:49 02/05/24 12:49 02/05/24 12:49 02/05/24 12:49 02/05/24 12:49 Results - Labs 02/05/24 13:18 02/05/24 13:18 Abnormal Lab Results - Last 24 Hours (Table) 02/05/24 02/05/24 02/05/24 Range/Units 13:18 13:18 13:18 WBC 24.5 H (3.8-10.6) k/uL Neutrophils # 22.3 H (1.3-7.7) k/uL Lymphocytes # 0.7 L (1.0-4.8) k/uL PT (10.0-12.5) sec APTT (22.0-30.0) sec Sodium 136 L (137-145) mmol/L Potassium 5.5 H (3.5-5.1) mmol/L BUN 83 H (7-17) mg/dL Creatinine 3.33 H (0.52-1.04) mg/dL Magnesium 2.5 H (1.6-2.3) mg/dL Total Bilirubin 1.8 H (0.2-1.3) mg/dL AST 197 H (14-36) U/L ALT 275 H (4-34) U/L Alkaline Phosphatase 615 H (38-126) U/L Troponin I (0.000-0.034) ng/mL Total Protein 5.3 L (6.3-8.2) g/dL Albumin 2.9 L (3.5-5.0) g/dL Urine Appearance Cloudy H (Clear) Urine Protein 1+ H (Negative) Urine Blood Large H (Negative) Ur Leukocyte Esterase Small H (Negative) Urine RBC 47 H (0-5) /hpf Urine Bacteria Occasional H (None) /hpf Urine Mucus Rare H (None) /hpf 02/05/24 02/05/24 Range/Units 13:18 14:29 WBC (3.8-10.6) k/uL Neutrophils # (1.3-7.7) k/uL Lymphocytes # (1.0-4.8) k/uL PT 9.9 L (10.0-12.5) sec APTT 18.4 L (22.0-30.0) sec Sodium (137-145) mmol/L Potassium (3.5-5.1) mmol/L BUN (7-17) mg/dL Creatinine (0.52-1.04) mg/dL Magnesium (1.6-2.3) mg/dL Total Bilirubin (0.2-1.3) mg/dL AST (14-36) U/L ALT (4-34) U/L Alkaline Phosphatase (38-126) U/L Troponin I 0.142 H* (0.000-0.034) ng/mL Total Protein (6.3-8.2) g/dL Albumin (3.5-5.0) g/dL Urine Appearance (Clear) Urine Protein (Negative) Urine Blood (Negative) Ur Leukocyte Esterase (Negative) Urine RBC (0-5) /hpf Urine Bacteria (None) /hpf Urine Mucus (None) /hpf Diabetes panel 02/05/24 Range/Units 13:18 Sodium 136 L (137-145) mmol/L Potassium 5.5 H (3.5-5.1) mmol/L Chloride 101 (98-107) mmol/L Carbon Dioxide 27 (22-30) mmol/L BUN 83 H (7-17) mg/dL Creatinine 3.33 H (0.52-1.04) mg/dL Glucose 94 (74-99) mg/dL Calcium 8.5 (8.4-10.2) mg/dL AST 197 H (14-36) U/L ALT 275 H (4-34) U/L Alkaline Phosphatase 615 H (38-126) U/L Total Protein 5.3 L (6.3-8.2) g/dL Albumin 2.9 L (3.5-5.0) g/dL Calcium panel 02/05/24 Range/Units 13:18 Calcium 8.5 (8.4-10.2) mg/dL Albumin 2.9 L (3.5-5.0) g/dL Pituitary panel 02/05/24 Range/Units 13:18 Sodium 136 L (137-145) mmol/L Potassium 5.5 H (3.5-5.1) mmol/L Chloride 101 (98-107) mmol/L Carbon Dioxide 27 (22-30) mmol/L BUN 83 H (7-17) mg/dL Creatinine 3.33 H (0.52-1.04) mg/dL Glucose 94 (74-99) mg/dL Calcium 8.5 (8.4-10.2) mg/dL Adrenal panel 02/05/24 Range/Units 13:18 Sodium 136 L (137-145) mmol/L Potassium 5.5 H (3.5-5.1) mmol/L Chloride 101 (98-107) mmol/L Carbon Dioxide 27 (22-30) mmol/L BUN 83 H (7-17) mg/dL Creatinine 3.33 H (0.52-1.04) mg/dL Glucose 94 (74-99) mg/dL Calcium 8.5 (8.4-10.2) mg/dL Total Bilirubin 1.8 H (0.2-1.3) mg/dL AST 197 H (14-36) U/L ALT 275 H (4-34) U/L Alkaline Phosphatase 615 H (38-126) U/L Total Protein 5.3 L (6.3-8.2) g/dL Albumin 2.9 L (3.5-5.0) g/dL
[2024-02-05] MEDS: IPRATROPIUM-ALBUTEROL 3 ML NEB INHALATION SCH (23:44)
[2024-02-06 02:32] LABS: Glucose,Whole Blood 81 mg/dL (70-110)
[2024-02-06] MEDS: PIPERACILLIN-TAZOBACTAM 3.375 GM in SODIUM CHLORIDE 0.9% 100 ML IVPB SCH (04:22)
--- NOTE | 2024-02-06 06:01 | P.HPIM ---
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 She was transferred to [facility] 12/30/2023 after being hospitalized and treated at [facility] on December 04, 2023 where patient developed to have droopy face and lack of vision found to have thrombus stroke affecting the right [employer] underwent mechanical thrombectomy and shortly after developed to have hemorrhagic transformation in the right [employer] territory with edema and mass effect was treated for over 2 weeks and finally was sent to rehab at [facility] on 12/30/2023 will continue to have significant lack of vision along with weakness in the left side with quite a bit debility. Patient is known to have advanced COPD on home O2 for long time steroid-d ependent and updraft treatment on more regular basis. Through the last few weeks developed to have significant decline physically and mentally developed in the last 5 days and to quit eating completely because of the claim that she is having worsening symptoms with nausea and abdominal fullness and discomfort which she did did not notify anybody about it until early or urgent blood work was done and showed significant acute kidney injury acute kidney failure with creatinine of 4.11 bun of 81 significant abnormal liver function test with alk phos 750 ALT 307 AST 214 total bili at 1.6 with lipase 257. Her white blood cell was 24,000 as well she was started on Zosyn and was diagnosed with sepsis possibly related to ascending cholangitis also acute kidney injury acute kidney failure with UTI, elevated troponin possible type II non-STEMI. Patient also has been complaining of severe increased pain and discomfort in the left leg area over small ulcerated area of the leg from not a clear etiology most likely vascular occlusive disease has been treated with topical care with mom with become quite painful lately. Family were notified with patient transfer early before she left [facility] they are aware of her condition at the time. REVIEW OF SYSTEMS: CONSTITUTIONAL: Well-developed quite bit pale in mild respiratory distress EYES: No icterus sclerae, no conjunctivitis. EARS, NOSE, MOUTH, THROAT, and FACE: No sore throat, lymphadenopathy, carotid b ruits or deformity. RESPIRATORY: Decreased breath sound bilaterally with fine rhonchi slight cough a nd wheezes. CARDIOVASCULAR: Positive PND orthopnea palpitation slight edema. GASTROINTESTINAL: Significant abdominal distention with nausea vomiting no diarrhea or constipation but slight but bloating sensation discomfort. GENITOURINARY: Negative for Hematuria or UTI, no kidney stones. Significant decreased urine output with change in color. INTEGUMENT/BREAST: Negative for any muscular injury with mild osteoarthritis.. HEMATOLOGIC/LYMPHATIC: Negative for bleed or purpura. MUSCULOSKELTAL: Negative for Myalgia or arthralgia. Small ulcerated area on the left leg. NEURLOGICAL: No LOC, Sz or syncope, blurred vision dizziness or abnormality.. BEHAVIORAL/PSYCH: Negative. ENDOCRINE: Negative. PHYSICAL EXAMINATION: General Appearance: Alert, cooperative, in mild respiratory distress Neck HEENT: Supple, no lymphadenopathy, no thyroid enlargement, no carotid bruits. Lungs: Decreased breath sound bilaterally with rhonchi positive mild crackles in the bases positive mild expiratory wheezes. Chest Wall: Decreased expansion with deep inspiration no tenderness and no deformity was found on exam, no costochondral pain or discomfort. Heart: Irregular rate and rhythm, S1, S2 positive S3 positive systolic murmur. Back: Symmetric, no curvature, ROM normal, no CVA tenderness. Abdomen: Soft positive bowel sounds slight tenderness and discomfort in the right upper quadrant area no rebound no rigidity. Extremities: Extremities normal, atraumatic, no cyanosis or edema. Small ulcerated area quite bit painful in the left leg. Pulses: 2+ and symmetric. Skin: Skin color, texture, tugor normal, no rashes or lesions. Neurologic: Alert oriented x3 cranial nerves II through XII intact, no motor deficit, no abnormal balance or gait. ASSESSMENT AND PLAN: _Sepsis: Secondary to ascending cholangitis and possible UTI: Patient admitted to hospital continue Zosyn, hydration, further testing waiting for urine culture and blood culture. _Acute kidney injury secondary to severe acute tubular necrosis with severe dehydration not eating or drinking for the last few days significantly elevated BUN/creatinine also this is can be hepatorenal syndrome as well causing more injury to the kidney, hydration watch urine output carefully will consult n ephrology ultrasound of the kidney to be done. _Abdominal pain with intractable nausea and severe symptoms this is could be gallstone versus acute hepatitis: Significant abnormal liver function test ultrasound to be done continue hydration again watch pain and symptoms carefully ultrasound of the gallbladder and furthermore HIDA scan will be done. _Acute cholecystitis with cholelithiasis: Patient be seen general surgery will be scheduled for HIDA scan confirmed diagnosis before going for any i ntervention. _Elevated troponin with possible type II non-STEMI: Patient again admitted to the hospital watch symptoms carefully repeat CK troponin EKG and cardiology consultation be done. _New onset of A-fib with RVR: Likely in the EKG looks patient is in A-fib with something since the stroke in November tried excluded as a possibility because up till now patient was on antiplatelet agent if this is truthfully became specially watching patient on heart monitor despite doing the transesophageal e chocardiogram testing in [place] had failed to show any abnormality at the time but this is could be the reason why she had a stroke in the first place. Patient might require an anticoagulation by having her on Eliquis 2.5 mg twice a day eventually. _UTI abnormal Urine test currently with the elevated white blood cell she is on Zosyn currently waiting for final culture. 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 _Advanced COPD: Has been seeing pulmonary remain on Ventolin Trelegy along with albuterol treatment [id number] with smaller dose of steroid. _Severe gastritis and gastroesophageal reflux syndrome: Will add pantoprazole 40 mg a day watch for further symptomatic where EGD eventually. _Nonhealing small ulcer on the left leg with severe PAD might require further testing continue topical care currently. GI prophylaxis: Patient be on pantoprazole. DVT prophylaxis: Patient is on Lovenox subcutaneous. CODE STATUS: Full code. Admit patient to the inpatient service for more than 2 night stay. Past Medical History Past Medical History: COPD, Hypertension Additional Past Medical History / Comment(s): 3LPM [place] History of Any Multi-Drug Resistant Organisms: None Reported Past Surgical History: No Surgical Hx Reported Past Psychological History: No Psychological Hx Reported Smoking Status: Former smoker Past Alcohol Use History: Daily Past Drug Use History: None Reported - Past Family History Mother Family Medical History: Cancer, Dementia Additional Family Medical History / Comment(s): Mother had breast cancer and passed from dementia. Medications and Allergies Home Medications Medication Instructions Recorded Confirmed Type Acetaminophen [Tylenol] 650 mg PO Q4H PRN 02/05/24 02/05/24 History Aspirin [[place] Aspirin EC] 81 mg PO DAILY@0800 02/05/24 02/05/24 History Atorvastatin [Lipitor] 80 mg PO HS 02/05/24 02/05/24 History Budesonide [Pulmicort] 1 mg INHALATION RT-BID@0800,2100 02/05/24 02/05/24 History Cetirizine HCl [Zyrtec] 10 mg PO HS@209902/05/24 02/05/24 History Ensure Clear 120 ml PO TID@0800,1200,1700 02/05/24 02/05/24 History Fluticasone Nasal [place] [Flonase 2 spray EA NOSTRIL HS@21302/05/24 02/05/24 History Nasal [place]] Furosemide [Lasix] 20 mg PO DAILY@0802/05/24 02/05/24 History Ipratropium-Albuterol Nebulize 3 ml INHALATION RT-Q4H PRN 02/05/24 02/05/24 History [Duoneb 0.5 mg-3 mg/3 ml Soln] Ipratropium-Albuterol Nebulize 3 ml INHALATION RT-QID@00,06,12,18 02/05/24 History [Duoneb 0.5 mg-3 mg/3 ml Soln] Lidocaine External Gel 4% 1 applic TOPICAL DAILY@79902/05/24 02/05/24 History Losartan [Cozaar] 25 mg PO DAILY@0802/05/24 02/05/24 History Magnesium Hydroxide [Milk of 7,200 mg PO Q48H PRN 02/05/24 02/05/24 History Magnesia Concentrate] Na Phos,M-B/Na Phos,Di-Ba [Fleet 133 ml RECTAL DAILY PRN 02/05/24 02/05/24 History Adult] Ondansetron [Zofran] 4 mg PO Q6H PRN 02/05/24 02/05/24 History Pantoprazole Sodium [Protonix] See Taper PO DIRECTED 02/05/24 02/05/24 History Polyvinyl Alcohol/Povidone 1 applic BOTH EYES BID PRN 02/05/24 02/05/24 History [[place] Eye Drop] Potassium Chloride ER [K-Dur 20] 20 meq PO DAILY@1700 02/05/24 02/05/24 History Saline Nasal Gel [[place] Nasal Gel] 1 applic EA NOSTRIL BID 02/05/24 02/05/24 History Sennosides [Senokot] 8.6 mg PO BID@0800,1700 02/05/24 02/05/24 History bisacodyL [Dulcolax] 10 mg RECTAL DAILY PRN 02/05/24 02/05/24 History Allergies Allergy/AdvReac Type Severity Reaction Status Date / Time No Known Allergies Allergy Verified 02/05/24 14:46 Physical Exam Vitals: Vital Signs Temp Pulse Resp BP Pulse Ox 02/05/24 15:33 89 20 119/76 94 L 02/05/24 12:49 97.5 F L 61 18 111/53 97 Intake and Output 02/05/24 02/05/24 02/05/24 06:59 14:59 22:59 Other: # Bowel Movements 2 Weight 70.307 kg Results CBC & Chem 7: 02/05/24 13:18 02/05/24 13:18 Labs: Abnormal Lab Results - Last 24 Hours (Table) 02/05/24 02/05/24 02/05/24 Range/Units 13:18 13:18 13:18 WBC 24.5 H (3.8-10.6) k/uL Neutrophils # 22.3 H (1.3-7.7) k/uL Lymphocytes # 0.7 L (1.0-4.8) k/uL PT (10.0-12.5) sec APTT (22.0-30.0) sec Sodium 136 L (137-145) mmol/L Potassium 5.5 H (3.5-5.1) mmol/L BUN 83 H (7-17) mg/dL Creatinine 3.33 H (0.52-1.04) mg/dL Magnesium 2.5 H (1.6-2.3) mg/dL Total Bilirubin 1.8 H (0.2-1.3) mg/dL AST 197 H (14-36) U/L ALT 275 H (4-34) U/L Alkaline Phosphatase 615 H (38-126) U/L Troponin I (0.000-0.034) ng/mL Total Protein 5.3 L (6.3-8.2) g/dL Albumin 2.9 L (3.5-5.0) g/dL Urine Appearance Cloudy H (Clear) Urine Protein 1+ H (Negative) Urine Blood Large H (Negative) Ur Leukocyte Esterase Small H (Negative) Urine RBC 47 H (0-5) /hpf Urine Bacteria Occasional H (None) /hpf Urine Mucus Rare H (None) /hpf 02/05/24 02/05/24 Range/Units 13:18 14:29 WBC (3.8-10.6) k/uL Neutrophils # (1.3-7.7) k/uL Lymphocytes # (1.0-4.8) k/uL PT 9.9 L (10.0-12.5) sec APTT 18.4 L (22.0-30.0) sec Sodium (137-145) mmol/L Potassium (3.5-5.1) mmol/L BUN (7-17) mg/dL Creatinine (0.52-1.04) mg/dL Magnesium (1.6-2.3) mg/dL Total Bilirubin (0.2-1.3) mg/dL AST (14-36) U/L ALT (4-34) U/L Alkaline Phosphatase (38-126) U/L Troponin I 0.142 H* (0.000-0.034) ng/mL Total Protein (6.3-8.2) g/dL Albumin (3.5-5.0) g/dL Urine Appearance (Clear) Urine Protein (Negative) Urine Blood (Negative) Ur Leukocyte Esterase (Negative) Urine RBC (0-5) /hpf Urine Bacteria (None) /hpf Urine Mucus (None) /hpf
[2024-02-06] MEDS: BUDESONIDE 1 MG/2 ML NEBU INHALATION SCH (07:58)
[2024-02-06] MEDS: IPRATROPIUM-ALBUTEROL 3 ML NEB INHALATION SCH (07:58)
[2024-02-06] MEDS ORDERED: NON FORMULARY DRUG (Ensure Clear 1 BOX Ml) PO SCH (08:00)
[2024-02-06] MEDS ORDERED: NA PHOS,M-B/NA PHOS,DI-BA 133 ML ENEMA RECTAL PRN (09:00)
[2024-02-06] MEDS ORDERED: MAGNESIUM HYDROXIDE 2,400 MG/30 ML CUP PO PRN (09:00)
[2024-02-06] MEDS: PANTOPRAZOLE 40 MG TABLET PO SCH (10:48)
[2024-02-06] MEDS: ASPIRIN 81 MG PO SCH (10:48)
[2024-02-06] MEDS: SENNOSIDES 8.6 MG TAB PO SCH (10:48)
[2024-02-06] MEDS: LOSARTAN 25 MG TAB PO SCH (10:48)
--- NOTE | 2024-02-06 11:37 | P.NPCON ---
History of Present Illness - Reason for Consult acute renal failure - History of Present Illness Reason for consultation: Acute kidney injury History of present illness: Patient is 83-year-old female seen renal consultation for acute kidney injury. Patient's creatinine in December 2023 was 0.7-0.8. This admission it was elevated at 4.11 and later in the day was 3.33. Labs from today are pending. Patient came from an extended care facility due to abdominal pain. According to the family present at bedside, she has not been eating and drinking much for the last 1 week and has been quite nauseous. No vomiting or diarrhea. Gallbladder ultrasound showed gallstones and hydrops of the gallbladder. She underwent HIDA scan this morning. She is being followed by surgery. No plans for surgery at this time. Blood pressure has been running on the lower side in the systolic 80s to 90s. Patient does have Lasix as well as losartan on her home medication list. Afebrile. I do not see any NSAIDs on her home medication list. No history of diabetes or coronary artery disease. No gross hematuria or dysuria. Vital signs are stable. Blood pressure on the lower side. General: No acute distress. HEENT: Head exam is unremarkable. LUNGS: No audible rhonchi or wheezes. HEART: Rate and Rhythm are regular. ABDOMEN: Mild generalized tenderness. EXTREMITITES: No edema. Past Medical History Past Medical History: COPD, Hypertension Additional Past Medical History / Comment(s): 3LPM [place] History of Any Multi-Drug Resistant Organisms: None Reported Past Surgical History: No Surgical Hx Reported Past Anesthesia/Blood Transfusion Reactions: Unable to Obtain Type of Cardiac Device: Loop Device Placement Date:: Unsure of date per patient Past Psychological History: No Psychological Hx Reported Smoking Status: Former smoker Past Alcohol Use History: Daily Past Drug Use History: None Reported - Past Family History Mother Family Medical History: Cancer, Dementia Additional Family Medical History / Comment(s): Mother had breast cancer and passed from dementia. Medications and Allergies Home Medications Medication Instructions Recorded Confirmed Type Acetaminophen [Tylenol] 650 mg PO Q4H PRN 02/05/24 02/05/24 History Aspirin [[place] Aspirin EC] 81 mg PO DAILY@0800 02/05/24 02/05/24 History Atorvastatin [Lipitor] 80 mg PO HS 02/05/24 02/05/24 History Budesonide [Pulmicort] 1 mg INHALATION RT-BID@0800,2100 02/05/24 02/05/24 History Cetirizine HCl [Zyrtec] 10 mg PO HS@209902/05/24 02/05/24 History Ensure Clear 120 ml PO TID@0800,1200,1700 02/05/24 02/05/24 History Fluticasone Nasal [place] [Flonase 2 spray EA NOSTRIL HS@21302/05/24 02/05/24 History Nasal [place]] Furosemide [Lasix] 20 mg PO DAILY@0802/05/24 02/05/24 History Ipratropium-Albuterol Nebulize 3 ml INHALATION RT-Q4H PRN 02/05/24 02/05/24 History [Duoneb 0.5 mg-3 mg/3 ml Soln] Ipratropium-Albuterol Nebulize 3 ml INHALATION RT-QID@00,06,12,18 02/05/24 02/05/24 History [Duoneb 0.5 mg-3 mg/3 ml Soln] Lidocaine External Gel 4% 1 applic TOPICAL DAILY@0802/05/24 02/05/24 History Losartan [Cozaar] 25 mg PO DAILY@0802/05/24 02/05/24 History Magnesium Hydroxide [Milk of 7,200 mg PO Q48H PRN 02/05/24 02/05/24 History Magnesia Concentrate] Na Phos,M-B/Na Phos,Di-Ba [Fleet 133 ml RECTAL DAILY PRN 02/05/24 02/05/24 History Adult] Ondansetron [Zofran] 4 mg PO Q6H PRN 02/05/24 02/05/24 History Pantoprazole Sodium [Protonix] See Taper PO DIRECTED 02/05/24 02/05/24 History Polyvinyl Alcohol/Povidone 1 applic BOTH EYES BID PRN 02/05/24 02/05/24 History [[place] Eye Drop] Potassium Chloride ER [K-Dur 20] 20 meq PO DAILY@1700 02/05/24 02/05/24 History Saline Nasal Gel [[place] Nasal Gel] 1 applic EA NOSTRIL BID 02/05/24 02/05/24 Hist ory Sennosides [Senokot] 8.6 mg PO BID@0800,1700 02/05/24 02/05/24 History bisacodyL [Dulcolax] 10 mg RECTAL DAILY PRN 02/05/24 02/05/24 History Allergies Allergy/AdvReac Type Severity Reaction Status Date / Time No Known Allergies Allergy Verified 02/05/24 14:46 Physical Exam Vitals: Vital Signs Temp Pulse Pulse Resp BP BP Pulse Ox 02/06/24 08:00 97.5 F L 106 H 16 84/48 99 02/06/24 04:00 97.9 F 104 H 18 98/62 98 02/06/24 00:00 97.9 F 96 18 97/62 99 02/05/24 22:02 97.5 F L 97 20 105/71 100 02/05/24 15:33 89 20 119/76 94 L 02/05/24 12:49 97.5 F L 61 18 111/53 97 Intake and Output 02/05/24 02/06/24 02/06/24 22:59 06:59 14:59 Intake Total 100 Balance 100 Intake: Intake, IV Titration 100 Amount Piperacillin-Tazobactam 3 100 .375 gm In Sodium Chloride 0.9% 100 ml @ 25 mls/hr IVPB Q12H [facility] Rx# :[id number] Other: Voiding Method External Catheter External Catheter # Bowel Movements 2 Weight 70.307 kg 43.5 kg Results - Lab Results Most recent lab results Calcium 8.5 mg/dL (8.4-10.2) 02/05/24 13:18 Magnesium 2.5 mg/dL (1.6-2.3) H 02/05/24 13:18 02/05/24 13:18 02/05/24 13:18 Assessment and Plan Plan: Assessment: 1. Acute kidney injury secondary to ATN secondary to hypovolemia further worsen with the use of Lasix and losartan. Creatinine 4.11 and improved to 3.33. Baseline creatinine 0.7-0.8 from December 2023. 2. Mild hyperkalemia. Hemolyzed sample. Patient was on losartan outpatient. 3. Hypotension related to hypovolemia and antihypertensives. 4. Gallstones. HIDA scan pending. Surgery following. Plan: 500 cc bolus of normal saline now. After bolus, start maintenance IV fluids with normal saline at 130 cc an hour. Check renal ultrasound. Check bladder scan to rule out urinary retention. Hold antihypertensives. Check a.m. cortisol level. Avoid nephrotoxins including Fleet enemas., Continue to monitor renal function and urine output. Thank you for the consultation. I will continue to follow the patient with you during her hospital stay.
--- NOTE | 2024-02-06 11:44 | P.CONS ---
History of Present Illness - Reason for Consult Consult date: 02/06/24 wound care - History of Present Illness This is an 83-year-old female being seen on 3 S. for nonhealing ulceration to the left hip calf and right forearm. The left calf ulceration measures approximately 3.0 x 2.5 x 0.2 cm with slough and nonviable tissue present. The wound edges are attached to the wound base there is no tunneling or undermining noted. Granulation noted to the wound bed. Minimal serous drainage noted. Patient does not know how long the ulceration has been there. They have been treating it with a silver dressing at the extended-care facility. They are not sure of the name. Family and patient feel that the ulceration has not made any changes and has been a roughly the same size since it started. Patient also has a right forearm ulceration for few weeks. Measuring approximately 1 x 0.4 x 0.1 cm the area does show epithelialized tissue present. We will apply zinc to the site. Ulceration was caused from her fingernails. Review Of Systems: Constitutional: No fever, no chills, no night sweats. No weight change. No weakness, fatigue or lethargy. No daytime sleepiness. Integumentary:reports wounds, no lesions. No rash or pruritus. No unusual bruising. No change in hair or nails. Physical exam: General Appearance: Alert, cooperative, no distress, appears stated age. Skin: See HPI all other Skin color, texture, tugor normal, no rashes or lesions. Neurologic: Alert oriented x3 Assessment: 1. Nonhealing ulceration with fat layer exposure left calf 2. Nonhealing ulceration limited to skin breakdown right forearm Plan: 1. Apply absorptive silver, saline moist gauze, dry gauze, rolled gauze and secure with paper tape to the left calf ulceration. Right forearm ulceration apply zinc barrier cream and dressing as needed. When patient returns to the extended-care facility Please add to Dr. Odonnell's list for evaluation. Or patient may follow-up in the wound care center for advanced wound care. Thank you for the consultation any questions please contact the wound care center DNP note has been reviewed and discussed with Dr. Wilkinson and the impression and plan of care has been directed as dictated. Past Medical History Past Medical History: COPD, Hypertension Additional Past Medical History / Comment(s): 3LPM NC History of Any Multi-Drug Resistant Organisms: None Reported Past Surgical History: No Surgical Hx Reported Past Anesthesia/Blood Transfusion Reactions: Unable to Obtain Type of Cardiac Device: Loop Device Placement Date:: Unsure of date per patient Past Psychological History: No Psychological Hx Reported Smoking Status: Former smoker Past Alcohol Use History: Daily Past Drug Use History: None Reported - Past Family History Mother Family Medical History: Cancer, Dementia Additional Family Medical History / Comment(s): Mother had breast cancer and passed from dementia. Medications and Allergies Home Medications Medication Instructions Recorded Confirmed Type Acetaminophen [Tylenol] 650 mg PO Q4H PRN 02/05/24 02/05/24 History Aspirin [Linn Aspirin EC] 81 mg PO DAILY@0802/05/24 02/05/24 History Atorvastatin [Lipitor] 80 mg PO HS 02/05/24 02/05/24 History Budesonide [Pulmicort] 1 mg INHALATION RT-BID@0800,2100 02/05/24 02/05/24 History Cetirizine HCl [Zyrtec] 10 mg PO HS@209902/05/24 02/05/24 History Ensure Clear 120 ml PO TID@0800,1200,1700 02/05/24 02/05/24 History Fluticasone Nasal [place] [Flonase 2 spray EA NOSTRIL HS@2130 02/05/24 02/05/24 History Nasal [place]] Furosemide [Lasix] 20 mg PO DAILY@0802/05/24 02/05/24 History Ipratropium-Albuterol Nebulize 3 ml INHALATION RT-Q4H PRN 02/05/24 02/05/24 History [Duoneb 0.5 mg-3 mg/3 ml Soln] Ipratropium-Albuterol Nebulize 3 ml INHALATION RT-QID@00,06,12,18 02/05/24 02/05/24 History [Duoneb 0.5 mg-3 mg/3 ml Soln] Lidocaine External Gel 4% 1 applic TOPICAL DAILY@79902/05/24 02/05/24 History Losartan [Cozaar] 25 mg PO DAILY@0800 02/05/24 02/05/24 History Magnesium Hydroxide [Milk of 7,200 mg PO Q48H PRN 02/05/24 02/05/24 History Magnesia Concentrate] Na Phos,M-B/Na Phos,Di-Ba [Fleet 133 ml RECTAL DAILY PRN 02/05/24 02/05/24 History Adult] Ondansetron [Zofran] 4 mg PO Q6H PRN 02/05/24 02/05/24 History Pantoprazole Sodium [Protonix] See Taper PO DIRECTED 02/05/24 02/05/24 History Polyvinyl Alcohol/Povidone 1 applic BOTH EYES BID PRN 02/05/24 02/05/24 History [[place] Eye Drop] Potassium Chloride ER [K-Dur 20] 20 meq PO DAILY@1700 02/05/24 02/05/24 History Saline Nasal Gel [[place] Nasal Gel] 1 applic EA NOSTRIL BID 02/05/24 02/05/24 History Sennosides [Senokot] 8.6 mg PO BID@0800,1700 02/05/24 02/05/24 History bisacodyL [Dulcolax] 10 mg RECTAL DAILY PRN 02/05/24 02/05/24 History Allergies Allergy/AdvReac Type Severity Reaction Status Date / Time No Known Allergies Allergy Verified 02/05/24 14:46 Physical Exam Vitals: Vital Signs Temp Pulse Pulse Resp BP BP Pulse Ox 02/06/24 08:00 97.5 F L 106 H 16 84/48 99 02/06/24 04:00 97.9 F 104 H 18 98/62 98 02/06/24 00:00 97.9 F 96 18 97/62 99 02/05/24 22:02 97.5 F L 97 20 105/71 100 02/05/24 15:33 89 20 119/76 94 L 02/05/24 12:49 97.5 F L 61 18 111/53 97 Intake and Output 02/05/24 02/06/24 02/06/24 22:59 06:59 14:59 Intake Total 100 Balance 100 Intake: Intake, IV Titration 100 Amount Piperacillin-Tazobactam 3 100 .375 gm In Sodium Chloride 0.9% 100 ml @ 25 mls/hr IVPB Q12H [facility] Rx# :[id number] Other: Voiding Method External Catheter External Catheter # Bowel Movements 2 Weight 70.307 kg 43.5 kg Results CBC & Chem 7: 02/05/24 13:18 02/05/24 13:18 Labs: Abnormal Lab Results - Last 24 Hours (Table) 02/05/24 02/05/24 02/05/24 Range/Units 13:18 13:18 13:18 WBC 24.5 H (3.8-10.6) k/uL Neutrophils # 22.3 H (1.3-7.7) k/uL Lymphocytes # 0.7 L (1.0-4.8) k/uL PT (10.0-12.5) sec APTT (22.0-30.0) sec Sodium 136 L (137-145) mmol/L Potassium 5.5 H (3.5-5.1) mmol/L BUN 83 H (7-17) mg/dL Creatinine 3.33 H (0.52-1.04) mg/dL Magnesium 2.5 H (1.6-2.3) mg/dL Total Bilirubin 1.8 H (0.2-1.3) mg/dL AST 197 H (14-36) U/L ALT 275 H (4-34) U/L Alkaline Phosphatase 615 H (38-126) U/L Troponin I (0.000-0.034) ng/mL Total Protein 5.3 L (6.3-8.2) g/dL Albumin 2.9 L (3.5-5.0) g/dL Urine Appearance Cloudy H (Clear) Urine Protein 1+ H (Negative) Urine Blood Large H (Negative) Ur Leukocyte Esterase Small H (Negative) Urine RBC 47 H (0-5) /hpf Urine Bacteria Occasional H (None) /hpf Urine Mucus Rare H (None) /hpf 02/05/24 02/05/24 Range/Units 13:18 14:29 WBC (3.8-10.6) k/uL Neutrophils # (1.3-7.7) k/uL Lymphocytes # (1.0-4.8) k/uL PT 9.9 L (10.0-12.5) sec APTT 18.4 L (22.0-30.0) sec Sodium (137-145) mmol/L Potassium (3.5-5.1) mmol/L BUN (7-17) mg/dL Creatinine (0.52-1.04) mg/dL Magnesium (1.6-2.3) mg/dL Total Bilirubin (0.2-1.3) mg/dL AST (14-36) U/L ALT (4-34) U/L Alkaline Phosphatase (38-126) U/L Troponin I 0.142 H* (0.000-0.034) ng/mL Total Protein (6.3-8.2) g/dL Albumin (3.5-5.0) g/dL Urine Appearance (Clear) Urine Protein (Negative) Urine Blood (Negative) Ur Leukocyte Esterase (Negative) Urine RBC (0-5) /hpf Urine Bacteria (None) /hpf Urine Mucus (None) /hpf Assessment and Plan (1) Non-pressure chronic ulcer of left calf with fat layer exposed Current Visit: Yes Status: Acute Code(s): L97.222 - NON-PRESSURE CHRONIC ULCER OF LEFT CALF W FAT LAYER EXPOSED SNOMED Code(s): 72883363393045953 (2) Non-pressure chronic ulcer of skin of other sites limited to breakdown of skin Current Visit: Yes Status: Acute Code(s): L98.491 - NON-PRS CHRONIC ULCER SKIN/ SITES LIMITED TO BRKDWN SKIN SNOMED Code(s): 29318119
[2024-02-06] MEDS: SODIUM CHLORIDE 0.9% 1,000 ML IV SCH (11:45)
[2024-02-06] MEDS: SODIUM CHLORIDE 0.9% 500 ML 500 ML IV ONE ×2 (11:45→21:17)
[2024-02-06 11:51] LABS: HCT 37.7 % (34.0-46.0); HGB 11.5 gm/dL (11.4-16.0); Hypochromasia Slight; MCH 31.7 pg (25.0-35.0); MCHC 30.5 g/dL (31.0-37.0); Macrocytosis Moderate; Mean Platelet Volume 8.5; Platelet Count 333 k/uL (150-450); RBC 3.63 m/uL (3.80-5.40); RDW 14.7 % (11.5-15.5)
--- NOTE | 2024-02-06 12:11 | P.PN ---
Subjective Progress Note Date: 02/06/24 CHIEF COMPLAINT: abdominal pain HISTORY OF PRESENT ILLNESS: Patient is currently lying in bed comfortably. She denies any abdominal pain. She does complain of more lower back pain. She has had no nausea or vomiting since earlier in the week per family. Patient had ultrasound with hydrops of the gallbladder and gallstones. HIDA scan is pending. Afebrile. Mildly tachycardic.. Hypotensive. Nephrology ordered fluid bolus. WBC is is up from 24 to 30. CMP is pending. Patient seen by nephrology for acute kidney injury. Patient being seen by cardiology for A-fib and elevated troponin. PHYSICAL EXAM: VITAL SIGNS: Reviewed GENERAL: Well-developed in no acute distress. HEENT: No sclera icterus. Extraocular movements grossly intact. Moist buccal mucosa. Head is atraumatic, normocephalic. Hears conversational speech. No nasal drainage. NECK: Supple without lymphadenopathy. CHEST: Non-labored respirations and equal bilateral excursions. CARDIOVASCULAR: Palpable 2+ radial pulses. ABDOMEN: Soft. Nondistended. Nontender. No right upper quadrant tenderness with palpation MUSCULOSKELETAL: No clubbing or cyanosis. NEUROLOGIC: No focal or lateralizing signs. Cranial nerves II through XII grossly intact. SKIN: Well perfused. Good skin turgor. ASSESSMENT: 1. Hydropic gallbladder and cholelithiasis on ultrasound. No right upper quadrant tenderness with palpation 2. Elevated LFTs and total bilirubin 3. History of severe COPD 4. History of stroke in November 2023 5. History of severe peripheral vascular disease 6. Acute kidney injury 7. Back pain PLAN: -Follow-up on HIDA scan results -Patient has multiple medical comorbidities. If HIDA scan is positive for acute cholecystitis would recommend a cholecystostomy tube. Further recommendations forthcoming depending on HIDA scan results. -Continue supportive care -Continue antibiotics Physician Senior [employer] Technician note has been reviewed by physician. Signing provider agrees with the documented findings, assessment, and plan of care. Please see additional documentation below As above. Patient with multiple comorbidities including chronic obstructive pulmonary disease, oxygen dependent. Patient has pre-existing heart disease. Patient's primary concern includes bilateral foot and leg pain. She denied any abdominal pain. HIDA scan negative for acute cholecystitis. Recommend diet low-fat. For symptomatic gallstones, cardiac risk assessment is advised for future surgical intervention once acute kidney injury, including acute exacerbation of COPD and other medical comorbidities are optimized. Objective - Vital Signs Vital signs: Vital Signs Temp 97.5 F L 02/06/24 08:00 Pulse 106 H 02/06/24 08:00 Resp 16 02/06/24 08:00 BP 84/48 02/06/24 08:00 Pulse Ox 99 02/06/24 08:00 FiO2 Intake & Output 02/05/24 02/06/24 02/06/24 18:59 06:59 18:59 Intake Total 100 Balance 100 Weight 70.307 kg 43.5 kg Intake: Intake, IV Titration 100 Amount Piperacillin-Tazobactam 3 100 .375 gm In Sodium Chloride 0.9% 100 ml @ 25 mls/hr IVPB Q12H [facility] Rx# :[id number] Other: Voiding Method External Catheter # Bowel Movements 2 - Labs CBC & Chem 7: 02/06/24 11:26 02/06/24 11:26 Labs: Abnormal Lab Results - Last 24 Hours (Table) 02/05/24 02/05/24 02/05/24 Range/Units 13:18 13:18 13:18 WBC 24.5 H (3.8-10.6) k/uL Neutrophils # 22.3 H (1.3-7.7) k/uL Lymphocytes # 0.7 L (1.0-4.8) k/uL PT (10.0-12.5) sec APTT (22.0-30.0) sec Sodium 136 L (137-145) mmol/L Potassium 5.5 H (3.5-5.1) mmol/L BUN 83 H (7-17) mg/dL Creatinine 3.33 H (0.52-1.04) mg/dL Magnesium 2.5 H (1.6-2.3) mg/dL Total Bilirubin 1.8 H (0.2-1.3) mg/dL AST 197 H (14-36) U/L ALT 275 H (4-34) U/L Alkaline Phosphatase 615 H (38-126) U/L Troponin I (0.000-0.034) ng/mL Total Protein 5.3 L (6.3-8.2) g/dL Albumin 2.9 L (3.5-5.0) g/dL Urine Appearance Cloudy H (Clear) Urine Protein 1+ H (Negative) Urine Blood Large H (Negative) Ur Leukocyte Esterase Small H (Negative) Urine RBC 47 H (0-5) /hpf Urine Bacteria Occasional H (None) /hpf Urine Mucus Rare H (None) /hpf 02/05/24 02/05/24 Range/Units 13:18 14:29 WBC (3.8-10.6) k/uL Neutrophils # (1.3-7.7) k/uL Lymphocytes # (1.0-4.8) k/uL PT 9.9 L (10.0-12.5) sec APTT 18.4 L (22.0-30.0) sec Sodium (137-145) mmol/L Potassium (3.5-5.1) mmol/L BUN (7-17) mg/dL Creatinine (0.52-1.04) mg/dL Magnesium (1.6-2.3) mg/dL Total Bilirubin (0.2-1.3) mg/dL AST (14-36) U/L ALT (4-34) U/L Alkaline Phosphatase (38-126) U/L Troponin I 0.142 H* (0.000-0.034) ng/mL Total Protein (6.3-8.2) g/dL Albumin (3.5-5.0) g/dL Urine Appearance (Clear) Urine Protein (Negative) Urine Blood (Negative) Ur Leukocyte Esterase (Negative) Urine RBC (0-5) /hpf Urine Bacteria (None) /hpf Urine Mucus (None) /hpf
[2024-02-06 12:32] LABS: ALT 233 U/L (4-34); AST 160 U/L (14-36); Albumin 2.8 g/dL (3.5-5.0); Alkaline Phosphatase 669 U/L (38-126); Amylase 122 U/L (30-110); Anion Gap 12 mmol/L; Blood Urea Nitrogen 77 mg/dL (7-17); Calcium 8.7 mg/dL (8.4-10.2); Carbon Dioxide 22 mmol/L (22-30); Chloride 108 mmol/L (98-107); Glucose 64 mg/dL (74-99); Lipase 266 U/L (23-300); Potassium 4.5 mmol/L (3.5-5.1); Sodium 142 mmol/L (137-145); Total Bilirubin 1.4 mg/dL (0.2-1.3); Total Protein 5.1 g/dL (6.3-8.2)
[2024-02-06 12:39] LABS: African American GFR (CKD) 14 (>60 ml/min/1.73 sqM); Non-African American GFR(CKD) 12 (>60 ml/min/1.73 sqM)
--- NOTE | 2024-02-06 12:48 | NM ---
EXAMINATION TYPE: NM hepatobiliary w CCK DATE OF EXAM: 02/06/2024 COMPARISON: NONE CLINICAL INDICATION: Female, 83 years old with history of elevated liver enzymes; TECHNIQUE: After the intravenous administration of 5.4 mCi Tc 99m Mebrofenin hepatobiliary scintigrap hy is performed. Immediate images post injection. FINDINGS: There is satisfactory initial accumulation of tracer by the liver. The gallbladder is visualized wit hin 90 minutes. The small bowel activity is noted within 22 minutes. At one hour CCK was administer ed, patient was injected with 0.9 mcg of Kinevac, and gallbladder ejection fraction is calculated at 82 %, in the normal range. Therefore there is no scintigraphic evidence of cystic or common bile jourdan t obstruction to suggest acute cholecystitis or gallbladder dyskinesia. IMPRESSION: Exam is within normal limits.
--- NOTE | 2024-02-06 13:47 | US ---
EXAMINATION TYPE: US kidneys/renal and bladder DATE OF EXAM: 02/06/2024 COMPARISON: US gallbladder 02/05/2024 CLINICAL INDICATION: Female, 83 years old with history of narayan; NARAYAN EXAM MEASUREMENTS: Right Kidney: 10.1 x 4.2 x 4.5 cm Left Kidney: 9.0 x 4.1 x 4.1 cm Right Kidney: Anechoic area seen upper pole: 2.5 x 2.9 x 1.9 cm. Hyperechoic focus with posterior shadowing seen medially at mid: 0.9 x 0.6 x 0.4 cm. Left Kidney: Anechoic area seen upper pole: 0.9 x 0.8 x 0.8 cm. Bladder: Anechoic. Bilateral Jets seen: Only right jet was seen during exam. IMPRESSION: 1. Nonobstructing right-sided nephrolithiasis. 2. Renal cystic changes.
[2024-02-06 13:58] VITALS: BMI 16.5
[2024-02-06] MEDS: ZINC OXIDE PASTE (Z-GUARD) 1 APPLIC TOPICAL SCH (14:00)
[2024-02-06 14:27] LABS: Band Neutrophils % 1 %; Metamyelocytes % 1 %; Neutrophils % (M) 92 %; Nucleated Red Blood Cells 0 /100 WBC (0-0); Total Cells Counted 200
--- NOTE | 2024-02-06 15:59 | P.CRDCN ---
History of Present Illness Consult date: 02/06/24 Reason for Consult (text): Elevated troponin and atrial fibrillation History of present illness: This is an 83-year-old female with no previous cardiac history, does not follow with a assembler trim. She has a past medical history of CVA, hypertension, hyperlipidemia, chronic hypoxic respiratory failure, remote history of tobacco use. We have been asked to evaluate the patient for elevated troponin and atrial fibrillation. Patient states she came into the hospital because she was feeling tired and her breathing was a bit off. She denies any wheezing. No chest pain. She has also had decreased appetite. No palpitations. No blood in her urine or stools. She did have some vomiting 1 week ago and following that did not have much appetite. Family states that she has been more confused over the past week or so. She is not active at home. Patient had a recent CVA and had loop recorder placed in [place]. According to the patient's family, no evidence of atrial fibrillation. Patient quit smoking 15 years ago. EKG: Sinus rhythm. Telemetry has been reviewed finding sinus rhythm with no episodes of atrial fibrillation. Chest x-ray: No acute process Laboratory studies: WBC 30, hemoglobin 11.5. Sodium 142, potassium 4.5, BUN 77 creatinine 3.43. Magnesium 2.5. Total bilirubin 1.4, AST 160, ALT 233, alkaline phosphatase is 669. Troponin 0.142 and 0.177. Urinalysis leukoesterase small, RBCs 47. Home cardiac medications: Aspirin 81 mg daily, atorvastatin 80 mg at bedtime, Lasix 20 mg daily, losartan 25 mg daily, potassium chloride 20 mill equivalents daily. Review Of Systems: At the time of my exam: CONSTITUTIONAL: Denies fever or chills. HEENT: Denies blurred vision, vision changes, or eye pain. Denies hemoptysis CARDIOVASCULAR: Denies chest pain. Denies orthopnea. Denies PND. Denies palpitations RESPIRATORY: Denies shortness of breath. GASTROINTESTINAL: Denies abdominal pain. Denies nausea or vomiting. HEMATOLOGIC: Denies bleeding disorders. GENITOURINARY: Denies any blood in urine. SKIN: Denies puritis. Denies rash. Physical examination: Gen: This is an 83-year-old female in no acute distress VS: reviewed, blood pressure 105/47, heart rate 102. HEENT: Head is atraumatic, normocephalic. Pupils equal, round. Sclerae is anicteric. NECK: Supple. No JVD. LUNGS: Clear to auscultation. No wheezes or rhonchi. No intercostal retractions. HEART: Regular rate and rhythm. No murmur. ABDOMEN: Soft No tenderness. EXTREMITIES: No pedal edema. No calf tenderness. NEUROLOGICAL: Patient is awake. Assessment: Troponin with minimal elevation, flat pattern, most likely secondary to acute kidney injury with chronic myocardial injury No evidence of atrial fibrillation either on telemetry unit and family deny any evidence of atrial fibrillation on loop recorder Acute kidney injury Elevated liver function test and gallstones, GI on consult Recent hemorrhagic stroke and underwent thrombectomy in [place] November 2023 Hypertension Hyperlipidemia Chronic hypoxic respiratory failure Remote history of tobacco use Plan: Continue patient's home cardiac medications Obtain 2-D echocardiogram and Doppler study to assess cardiac structure and function Further recommendations to follow based upon clinical course Thank you kindly for this consultation. Nurse practitioner note has been reviewed, I agree with documented findings and plan of care. Patient was seen and examined. Past Medical History Past Medical History: COPD, Hypertension Additional Past Medical History / Comment(s): 3LPM [place] History of Any Multi-Drug Resistant Organisms: None Reported Past Surgical History: No Surgical Hx Reported Past Anesthesia/Blood Transfusion Reactions: Unable to Obtain Type of Cardiac Device: Loop Device Placement Date:: Unsure of date per patient Past Psychological History: No Psychological Hx Reported Smoking Status: Former smoker Past Alcohol Use History: Daily Past Drug Use History: None Reported - Past Family History Mother Family Medical History: Cancer, Dementia Additional Family Medical History / Comment(s): Mother had breast cancer and passed from dementia. Medications and Allergies Home Medications Medication Instructions Recorded Confirmed Type Acetaminophen [Tylenol] 650 mg PO Q4H PRN 02/05/24 02/05/24 History Aspirin [[place] Aspirin EC] 81 mg PO DAILY@0800 02/05/24 02/05/24 History Atorvastatin [Lipitor] 80 mg PO HS 02/05/24 02/05/24 History Budesonide [Pulmicort] 1 mg INHALATION RT-BID@0800,2100 02/05/24 02/05/24 History Cetirizine HCl [Zyrtec] 10 mg PO HS@209902/05/24 02/05/24 History Ensure Clear 120 ml PO TID@0800,1200,1700 02/05/24 02/05/24 History Fluticasone Nasal [place] [Flonase 2 spray EA NOSTRIL HS@2130 02/05/24 02/05/24 History Nasal [place]] Furosemide [Lasix] 20 mg PO DAILY@0800 02/05/24 02/05/24 History Ipratropium-Albuterol Nebulize 3 ml INHALATION RT-Q4H PRN 02/05/24 02/05/24 History [Duoneb 0.5 mg-3 mg/3 ml Soln] Ipratropium-Albuterol Nebulize 3 ml INHALATION RT-QID@00,06,12,18 02/05/24 02/05/24 History [Duoneb 0.5 mg-3 mg/3 ml Soln] Lidocaine External Gel 4% 1 applic TOPICAL DAILY@0800 02/05/24 02/05/24 History Losartan [Cozaar] 25 mg PO DAILY@0800 02/05/24 02/05/24 History Magnesium Hydroxide [Milk of 7,200 mg PO Q48H PRN 02/05/24 02/05/24 History Magnesia Concentrate] Na Phos,M-B/Na Phos,Di-Ba [Fleet 133 ml RECTAL DAILY PRN 02/05/24 02/05/24 History Adult] Ondansetron [Zofran] 4 mg PO Q6H PRN 02/05/24 02/05/24 History Pantoprazole Sodium [Protonix] See Taper PO DIRECTED 02/05/24 02/05/24 History Polyvinyl Alcohol/Povidone 1 applic BOTH EYES BID PRN 02/05/24 02/05/24 History [[place] Eye Drop] Potassium Chloride ER [K-Dur 20] 20 meq PO DAILY@1700 02/05/24 02/05/24 History Saline Nasal Gel [[place] Nasal Gel] 1 applic EA NOSTRIL BID 02/05/24 02/05/24 History Sennosides [Senokot] 8.6 mg PO BID@0800,1700 02/05/24 02/05/24 History bisacodyL [Dulcolax] 10 mg RECTAL DAILY PRN 02/05/24 02/05/24 History Allergies Allergy/AdvReac Type Severity Reaction Status Date / Time No Known Allergies Allergy Verified 02/05/24 14:46 Physical Exam Vitals: Vital Signs Temp Pulse Pulse Resp BP BP Pulse Ox 02/06/24 12:32 100 02/06/24 12:19 100 02/06/24 12:00 102 H 16 105/47 02/06/24 08:00 97.5 F L 106 H 16 84/48 99 02/06/24 04:00 97.9 F 104 H 18 98/62 98 02/06/24 00:00 97.9 F 96 18 97/62 99 02/05/24 22:02 97.5 F L 97 20 105/71 100 02/05/24 15:33 89 20 119/76 94 L 02/05/24 12:49 97.5 F L 61 18 111/53 97 Intake and Output 02/05/24 02/06/24 02/06/24 22:59 06:59 14:59 Intake Total 100 Balance 100 Intake: Intake, IV Titration 100 Amount Piperacillin-Tazobactam 3 100 .375 gm In Sodium Chloride 0.9% 100 ml @ 25 mls/hr IVPB Q12H [facility] Rx# :[id number] Other: Voiding Method External Catheter External Catheter External Catheter # Bowel Movements 2 1 Weight 70.307 kg 43.5 kg Results 02/06/24 11:26 02/06/24 11:26 Cardiac Enzymes 02/05/24 02/05/24 Range/Units 13:18 13:18 AST 197 H (14-36) U/L Troponin I 0.142 H* (0.000-0.034) ng/mL Coagulation 02/05/24 Range/Units 14:29 PT 9.9 L (10.0-12.5) sec APTT 18.4 L (22.0-30.0) sec CBC 02/05/24 02/06/24 Range/Units 13:18 11:26 WBC 24.5 H 30.0 H (3.8-10.6) k/uL RBC 3.88 3.63 L (3.80-5.40) m/uL Hgb 12.6 11.5 (11.4-16.0) gm/dL Hct 38.7 37.7 (34.0-46.0) % Plt Count 299 333 (150-450) k/uL Comprehensive Metabolic Panel 02/05/24 Range/Units 13:18 Sodium 136 L (137-145) mmol/L Potassium 5.5 H (3.5-5.1) mmol/L Chloride 101 (98-107) mmol/L Carbon Dioxide 27 (22-30) mmol/L BUN 83 H (7-17) mg/dL Creatinine 3.33 H (0.52-1.04) mg/dL Glucose 94 (74-99) mg/dL Calcium 8.5 (8.4-10.2) mg/dL AST 197 H (14-36) U/L ALT 275 H (4-34) U/L Alkaline Phosphatase 615 H (38-126) U/L Total Protein 5.3 L (6.3-8.2) g/dL Albumin 2.9 L (3.5-5.0) g/dL Current Medications Generic Name Dose Route Start Last Admin Trade Name Freq PRN Reason Stop Dose Admin Acetaminophen 650 mg 02/05/24 21:47 02/05/24 22:45 Acetaminophen Tab 325 Mg Tab PO 650 mg Q4H PRN Administration Fever Hydrocodone Bitart/Acetaminophen 1 each 02/05/24 21:49 Hydrocodone/Apap 5-325mg 1 Each Tab PO Q4HR PRN Pain Albuterol/Ipratropium 3 ml 02/05/24 21:47 Ipratropium-Albuterol 3 Ml Neb INHALATION RT-Q4H PRN COPD Albuterol/Ipratropium 3 ml 02/06/24 08:00 02/06/24 12:18 Ipratropium-Albuterol 3 Ml Neb INHALATION 3 ml RT-QID MANDY Administration Artificial Tears 1 drops 02/05/24 22:00 Artificial Tears-Hypromellose Drops 15 Ml Btl BOTH EYES BID PRN Dry Eye(s) Aspirin 81 mg 02/06/24 08:00 02/06/24 10:48 Aspirin 81 Mg PO 81 mg DAILY@0800 MANDY Administration Atorvastatin Calcium 80 mg 02/06/24 21:00 Atorvastatin 80 Mg Tab PO HS MANDY Bisacodyl 10 mg 02/05/24 22:00 Bisacodyl 10 Mg Supp RECTAL DAILY PRN Constipation Budesonide 1 mg 02/06/24 08:00 02/06/24 07:58 Budesonide 1 Mg/2 Ml Nebu INHALATION Not Given RT-BID@0800,2100 [facility] Fluticasone Propionate 2 spray 02/06/24 21:30 Fluticasone 50mcg/[place] Nasal 16gm EA NOSTRIL HS@2130 [facility] Piperacillin Sod/Tazobactam 100 mls @ 25 mls/hr 02/06/24 04:00 02/06/24 04:22 Sod 3.375 gm/ Sodium Chloride IVPB 25 mls/hr Q12H [facility] Administration Protocol Sodium Chloride 1,000 mls @ 130 mls/hr 02/06/24 11:45 02/06/24 11:45 Saline 0.9% IV 130 mls/hr .Q7H42M [facility] Administration Lidocaine HCl 1 applic 02/06/24 08:00 Lidocaine 4% Cream 5 Gm Tube TOPICAL DAILY@0800 [facility] Loratadine 10 mg 02/06/24 21:00 Loratadine 10 Mg Tab PO HS@2100 [facility] Magnesium Hydroxide 2,400 mg 02/06/24 09:00 Magnesium Hydroxide 2,400 Mg/30 Ml Cup PO Q48H PRN Constipation Naloxone HCl 0.2 mg 02/05/24 14:42 Naloxone 0.4 Mg/Ml 1 Ml Vial IV Q2M PRN Opioid Reversal Ondansetron HCl 4 mg 02/05/24 21:47 Ondansetron 4 Mg Tab PO Q6H PRN Nausea And Vomiting Pantoprazole Sodium 40 mg 02/06/24 07:30 02/06/24 10:48 Pantoprazole 40 Mg Tablet PO 40 mg [id number] [facility] Administration Petrolatum 1 applic 02/06/24 11:45 Zinc Oxide Paste (Z-Guard) 1 Applic TOPICAL DAILY [facility] Protocol Senna 8.6 mg 02/06/24 08:00 02/06/24 10:48 Sennosides 8.6 Mg Tab PO 8.6 mg BID@0800,1700 [facility] Administration Intake and Output 02/05/24 02/06/24 02/06/24 22:59 06:59 14:59 Intake Total 100 Balance 100 Intake: Intake, IV Titration 100 Amount Piperacillin-Tazobactam 3 100 .375 gm In Sodium Chloride 0.9% 100 ml @ 25 mls/hr IVPB Q12H [facility] Rx# :[id number] Other: Voiding Method External Catheter External Catheter External Catheter # Bowel Movements 2 1 Weight 70.307 kg 43.5 kg 02/06/24 11:26 02/05/24 13:18
[2024-02-06] MEDS: LIDOCAINE 4% CREAM 5 GM TUBE TOPICAL SCH (16:21)
--- NOTE | 2024-02-06 16:44 | P.CONS ---
History of Present Illness - Reason for Consult Consult date: 02/06/24 Transaminitis Requesting physician: Wyatt Gaston - Chief Complaint Dehydration, decreased appetite/oral intake - History of Present Illness This is a pleasant 83-year-old female who was brought into the emergency department from the [facility] with complaints of weakness, decreased appetite and poor oral intake. She has a past medical history including COPD, h ypertension and daily alcohol use. Patient is a former smoker. Patient's daughter is at the bedside. Patient states that she has been having some nausea and that has been causing her decreased appetite so she has not been eating or drinking much. This has been ongoing for few days. Denies any abdominal pain and no vomiting. Patient was admitted for dehydration, acute kidney injury, weakness, transaminitis, elevated troponins and reported atrial fibrillation. Patient denies any known gallbladder disease and no previous liver disease. Denies any history of hepatitis. She had a gallbladder ultrasound which reported acute hydrops with multiple shadowing gallstones. Gallbladder wall mil dly thickened correlate clinically, hepatic steatosis. Liver is reported as coarse in echotexture. CBD 0.56 cm. Patient has been afebrile. She was noted to have leukocytosis on admission with a WBC of 24.5 and today 30.0. She was started on IV Zosyn. Multiple consultants placed to gastroenterology, general surgery, nephrology, and cardiology. Admitting labs total bilirubin 1.8 AST 197 ALT 275 alkaline phosphatase 615 repeat total bilirubin 1.4 AST 160 ALT 233 alkaline phosphatase 669 amylase 122 lipase 266. Patient currently denies any abdominal pain, no nausea or vomiting. No chest pain, or shortness of breath. She wears oxygen at home for history of COPD, feels like breathing might be slightly labored today. She underwent HIDA scan ordered from general surgery which reported as normal limits. Review of Systems REVIEW OF SYSTEMS: CARDIOPULMONARY: No chest pain or shortness of breath. Wears home oxygen Gastrointestinal: No abdominal pain. Nausea, no vomiting. Decreased appetite. No hematemesis, coffee-ground emesis. No rectal bleeding, or melena. GENITOURINARY: No dysuria or hematuria. MUSCULOSKELETAL: Reports normal range of motion., Joint pain. SKIN: No rashes. No jaundice. ENDOCRINE: No chills, fevers. No excessive weight gain or loss. No polydipsia or polyuria. PSYCHIATRIC: Unremarkable. History of daily alcohol use. NEUROLOGY: No change in mental status. Denies dizziness, headache. ENT: Vision unremarkable. CONSTITUTIONAL: No recent weight loss. Increased weakness. No fever, chills, night sweats. Past Medical History Past Medical History: COPD, Hypertension Additional Past Medical History / Comment(s): 3LPM [place] History of Any Multi-Drug Resistant Organisms: None Reported Past Surgical History: No Surgical Hx Reported Past Anesthesia/Blood Transfusion Reactions: Unable to Obtain Type of Cardiac Device: Loop Device Placement Date:: Unsure of date per patient Past Psychological History: No Psychological Hx Reported Smoking Status: Former smoker Past Alcohol Use History: Daily Past Drug Use History: None Reported - Past Family History Mother Family Medical History: Cancer, Dementia Additional Family Medical History / Comment(s): Mother had breast cancer and passed from dementia. Medications and Allergies Home Medications Medication Instructions Recorded Confirmed Type Acetaminophen [Tylenol] 650 mg PO Q4H PRN 02/05/24 02/05/24 History Aspirin [[place] Aspirin EC] 81 mg PO DAILY@0800 02/05/24 02/05/24 History Atorvastatin [Lipitor] 80 mg PO HS 02/05/24 02/05/24 History Budesonide [Pulmicort] 1 mg INHALATION RT-BID@0800,2100 02/05/24 02/05/24 History Cetirizine HCl [Zyrtec] 10 mg PO HS@209902/05/24 02/05/24 History Ensure Clear 120 ml PO TID@0800,1200,1700 02/05/24 02/05/24 History Fluticasone Nasal [place] [Flonase 2 spray EA NOSTRIL HS@2130 02/05/24 02/05/24 H istory Nasal [place]] Furosemide [Lasix] 20 mg PO DAILY@0800 02/05/24 02/05/24 History Ipratropium-Albuterol Nebulize 3 ml INHALATION RT-Q4H PRN 02/05/24 02/05/24 History [Duoneb 0.5 mg-3 mg/3 ml Soln] Ipratropium-Albuterol Nebulize 3 ml INHALATION RT-QID@00,06,12,18 02/05/24 02/05/24 History [Duoneb 0.5 mg-3 mg/3 ml Soln] Lidocaine External Gel 4% 1 applic TOPICAL DAILY@0800 02/05/24 02/05/24 History Losartan [Cozaar] 25 mg PO DAILY@0800 02/05/24 02/05/24 History Magnesium Hydroxide [Milk of 7,200 mg PO Q48H PRN 02/05/24 02/05/24 History Magnesia Concentrate] Na Phos,M-B/Na Phos,Di-Ba [Fleet 133 ml RECTAL DAILY PRN 02/05/24 02/05/24 History Adult] Ondansetron [Zofran] 4 mg PO Q6H PRN 02/05/24 02/05/24 History Pantoprazole Sodium [Protonix] See Taper PO DIRECTED 02/05/24 02/05/24 History Polyvinyl Alcohol/Povidone 1 applic BOTH EYES BID PRN 02/05/24 02/05/24 History [[place] Eye Drop] Potassium Chloride ER [K-Dur 20] 20 meq PO DAILY@1700 02/05/24 02/05/24 History Saline Nasal Gel [[place] Nasal Gel] 1 applic EA NOSTRIL BID 02/05/24 02/05/24 History Sennosides [Senokot] 8.6 mg PO BID@0800,1700 02/05/24 02/05/24 History bisacodyL [Dulcolax] 10 mg RECTAL DAILY PRN 02/05/24 02/05/24 History Allergies Allergy/AdvReac Type Severity Reaction Status Date / Time No Known Allergies Allergy Verified 02/05/24 14:46 Physical Exam Vitals: Vital Signs Temp Pulse Pulse Resp BP BP Pulse Ox 02/06/24 08:00 97.5 F L 106 H 16 84/48 99 02/06/24 04:00 97.9 F 104 H 18 98/62 98 02/06/24 00:00 97.9 F 96 18 97/62 99 02/05/24 22:02 97.5 F L 97 20 105/71 100 02/05/24 15:33 89 20 119/76 94 L 02/05/24 12:49 97.5 F L 61 18 111/53 97 Intake and Output 02/05/24 02/06/24 02/06/24 22:59 06:59 14:59 Intake Total 100 Balance 100 Intake: Intake, IV Titration 100 Amount Piperacillin-Tazobactam 3 100 .375 gm In Sodium Chloride 0.9% 100 ml @ 25 mls/hr IVPB Q12H [facility] Rx# :[id number] Other: Voiding Method External Catheter External Catheter # Bowel Movements 2 Weight 70.307 kg 43.5 kg General appearance: The patient is alert, oriented, appears in no acute distress. HET: Head is normocephalic and atraumatic. Conjunctiva pink. Sclera anicteric. Neck: Supple without lymphadenopathy. Trachea midline. Heart: Regular. Lungs: Equal expansion, normal respiratory effort. Abdomen: Soft, nontender, nondistended. Skin: No rashes. No jaundice. Extremities: Normal skin color and turgor. No pedal edema. Neurological: No focal deficits. Alert and oriented x3. Results CBC & Chem 7: 02/06/24 11:26 02/06/24 11:26 Labs: Abnormal Lab Results - Last 24 Hours (Table) 02/05/24 02/05/24 02/05/24 Range/Units 13:18 13:18 13:18 WBC 24.5 H (3.8-10.6) k/uL Neutrophils # 22.3 H (1.3-7.7) k/uL Lymphocytes # 0.7 L (1.0-4.8) k/uL PT (10.0-12.5) sec APTT (22.0-30.0) sec Sodium 136 L (137-145) mmol/L Potassium 5.5 H (3.5-5.1) mmol/L BUN 83 H (7-17) mg/dL Creatinine 3.33 H (0.52-1.04) mg/dL Magnesium 2.5 H (1.6-2.3) mg/dL Total Bilirubin 1.8 H (0.2-1.3) mg/dL AST 197 H (14-36) U/L ALT 275 H (4-34) U/L Alkaline Phosphatase 615 H (38-126) U/L Troponin I (0.000-0.034) ng/mL Total Protein 5.3 L (6.3-8.2) g/dL Albumin 2.9 L (3.5-5.0) g/dL Urine Appearance Cloudy H (Clear) Urine Protein 1+ H (Negative) Urine Blood Large H (Negative) Ur Leukocyte Esterase Small H (Negative) Urine RBC 47 H (0-5) /hpf Urine Bacteria Occasional H (None) /hpf Urine Mucus Rare H (None) /hpf 02/05/24 02/05/24 Range/Units 13:18 14:29 WBC (3.8-10.6) k/uL Neutrophils # (1.3-7.7) k/uL Lymphocytes # (1.0-4.8) k/uL PT 9.9 L (10.0-12.5) sec APTT 18.4 L (22.0-30.0) sec Sodium (137-145) mmol/L Potassium (3.5-5.1) mmol/L BUN (7-17) mg/dL Creatinine (0.52-1.04) mg/dL Magnesium (1.6-2.3) mg/dL Total Bilirubin (0.2-1.3) mg/dL AST (14-36) U/L ALT (4-34) U/L Alkaline Phosphatase (38-126) U/L Troponin I 0.142 H* (0.000-0.034) ng/mL Total Protein (6.3-8.2) g/dL Albumin (3.5-5.0) g/dL Urine Appearance (Clear) Urine Protein (Negative) Urine Blood (Negative) Ur Leukocyte Esterase (Negative) Urine RBC (0-5) /hpf Urine Bacteria (None) /hpf Urine Mucus (None) /hpf Comments: HIDA scan reports exam within normal limits. Gallbladder ultrasound which reported acute hydrops with multiple shadowing gallstones. Gallbladder wall mildly thickened correlate clinically, hepatic steatosis. Liver is reported as coarse in echotexture. CBD 0.56 cm. Assessment and Plan (1) Transaminitis Narrative/Plan: 83-year-old female presenting with weakness, decreased appetite with findings of transaminitis. Patient has elevated LFTs in a cholestatic pattern with evidence of gallstones however no reported CBD dilation and no abdominal pain. Patient also presents with leukocytosis, need to consider possible choledocholithiasis, consider possible ascending cholangitis. Recommend MRCP. Continue with IV antibiotics. Recommend clear liquid diet, treat symptomatically and follow closely. Current Visit: Yes Status: Acute Code(s): R74.01 - ELEVATION OF LEVELS OF L IVER TRANSAMINASE LEVELS SNOMED Code(s): 043923477 (2) History of alcohol abuse Current Visit: Yes Status: Acute Code(s): F10.11 - ALCOHOL ABUSE, IN REMISSION SNOMED Code(s): 552819945 (3) NARAYAN (acute kidney injury) Current Visit: Yes Status: Acute Code(s): N17.9 - ACUTE KIDNEY FAILURE, UNSPECIFIED SNOMED Code(s): 64588724 (4) Cholelithiasis Narrative/Plan: General surgery following Current Visit: Yes Status: Acute Code(s): K80.20 - CALCULUS OF GALLBLADDER W/O CHOLECYSTITIS W/O OBSTRUCTION SNOMED Code(s): 080155227 Plan: 1. Continue symptomatic and supportive care 2. Low-fat diet, n.p.o. after midnight 3. Daily CBC, CMP 4. MRCP ordered 5. Continue with recommendations from general surgery 6. Rest of medical management per primary medical team 7. Further recommendations forthcoming based on clinical course Thank you for this consultation, we will continue to follow. Dr. Flakita Cherry I agree with the dictator's note, documented as a scribe by Pat Crawford.
[2024-02-06] MEDS: ATORVASTATIN 80 MG TAB PO SCH (20:59)
[2024-02-06] MEDS: LORATADINE 10 MG TAB PO SCH (20:59)
[2024-02-06] MEDS: FLUTICASONE 50MCG/SPRAY NASAL 16GM EA NOSTRIL SCH (21:00)
--- NOTE | 2024-02-06 22:56 | P.PN ---
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 She was transferred to [facility] 12/30/2023 after being hospitalized and treated at [facility] on December 04, 2023 where patient developed to have droopy face and lack of vision found to have thrombus stroke affecting the right [employer] underwent mechanical thrombectomy and shortly after developed to have hemorrhagic transformation in the right [employer] territory with edema and mass effect was treated for over 2 weeks and finally was sent to rehab at [facility] on 12/30/2023 will continue to have significant lack of vision along with weakness in the left side with quite a bit debility. Patient is known to have advanced COPD on home O2 for long time steroid-depende nt and updraft treatment on more regular basis. Through the last few weeks developed to have significant decline physically and mentally developed in the last 5 days and to quit eating completely because of the claim that she is having worsening symptoms with nausea and abdominal fullness and discomfort which she did did not notify anybody about it until early or urgent blood work was done and showed significant acute kidney injury acute kidney failure with creatinine of 4.11 bun of 81 significant abnormal liver function test with alk phos 750 ALT 307 AST 214 total bili at 1.6 with lipase 257. Her white blood cell was 24,000 as well she was started on Zosyn and was diagnosed with sepsis possibly related to ascending cholangitis also acute kidney injury acute kidney failure with UTI, elevated troponin possible type II non-STEMI. Patient also has been complaining of severe increased pain and discomfort in the left leg area over small ulcerated area of the leg from not a clear etiology most likely vascular occlusive disease has been treated with topical care with mom with become quite painful lately. Family were notified with patient transfer early before she left [facility] they are aware of her condition at the time. 02/06/2024: Patient pain and discomfort is much better, with hydration kidney function has not improved much, also white blood cells still at 30,000, troponin at 0.177. Was seen and evaluated by general surgery who seen patient for possibly ga llstone from her ultrasound but decided to do HIDA scan to define if she had any real function loss or significant inflammation in the gallbladder might require urgent surgery. Cardiology team patient for her elevated troponin no conclusion was that at this point, remain on Zosyn for her sepsis which is most likely urinary tract infection continue Zosyn for now till final culture is back. Nephrology be seen patient in consultation for the acute kidney injury and ATN despite not much improvement yet the kidney function will continue hydration ultrasound continue supportive care with IV fluid. REVIEW OF SYSTEMS: CONSTITUTIONAL: Well-developed quite bit pale in mild respiratory distress EYES: No icterus sclerae, no conjunctivitis. EARS, NOSE, MOUTH, THROAT, and FACE: No sore throat, lymphadenopathy, carotid bruits or deformity. RESPIRATORY: Decreased breath sound bilaterally with fine rhonchi slight cough and wheezes. CARDIOVASCULAR: Positive PND orthopnea palpitation slight edema. GASTROINTESTINAL: Significant abdominal distention with nausea vomiting no diarrhea or constipation but slight but bloating sensation discomfort. GENITOURINARY: Negative for Hematuria or UTI, no kidney stones. Significant decreased urine output with change in color. INTEGUMENT/BREAST: Negative for any muscular injury with mild osteoarthritis.. HEMATOLOGIC/LYMPHATIC: Negative for bleed or purpura. MUSCULOSKELTAL: Negative for Myalgia or arthralgia. Small ulcerated area on the left leg. NEURLOGICAL: No LOC, Sz or syncope, blurred vision dizziness or abnormality.. BEHAVIORAL/PSYCH: Negative. ENDOCRINE: Negative. PHYSICAL EXAMINATION: General Appearance: Alert, cooperative, in mild respiratory distress Neck HEENT: Supple, no lymphadenopathy, no thyroid enlargement, no carotid bruits. Lungs: Decreased breath sound bilaterally with rhonchi positive mild crackles in the bases positive mild expiratory wheezes. Chest Wall: Decreased expansion with deep inspiration no tenderness and no deformity was found on exam, no costochondral pain or discomfort. Heart: Irregular rate and rhythm, S1, S2 positive S3 positive systolic murmur. Back: Symmetric, no curvature, ROM normal, no CVA tenderness. Abdomen: Soft positive bowel sounds slight tenderness and discomfort in the right upper quadrant area no rebound no rigidity. Extremities: Extremities normal, atraumatic, no cyanosis or edema. Small ulcerated area quite bit painful in the left leg. Pulses: 2+ and symmetric. Skin: Skin color, texture, tugor normal, no rashes or lesions. Neurologic: Alert oriented x3 cranial nerves II through XII intact, no motor deficit, no abnormal balance or gait. ASSESSMENT AND PLAN: _Sepsis: Secondary to ascending cholangitis and possible UTI: Patient admitted to hospital continue Zosyn, hydration, further testing waiting for urine culture and blood culture. Will continue IV hydration with bolus as well try to keep systolic blood pressure above 100. _Acute kidney injury secondary to severe acute tubular necrosis with severe dehydration not eating or drinking for the last few days significantly elevated BUN/creatinine also this is can be hepatorenal syndrome as well causing more injury to the kidney, hydration watch urine output carefully will consult nephrology ultrasound of the kidney to be done. _Abdominal pain with intractable nausea and severe symptoms this is could be gallstone versus acute hepatitis: Waiting for HIDA scan to decide on timeframe of surgery and necessity whether this is acute inflammation or not. _Acute cholecystitis with cholelithiasis: Patient be seen general surgery will be scheduled for HIDA scan confirmed diagnosis before going for any intervention. _Elevated troponin with possible type II non-STEMI: Still waiting for conclusion of cardiology. _Arrhythmia: With no sign of A-fib with RVR, review EKG Holter monitor looks perfectly fine at this point we will continue to watch for any tachycardia or arrhythmia. _UTI abnormal Urine test currently with the elevated white blood cell she is on Zosyn currently waiting for final culture. 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 _Advanced COPD: Has been seeing pulmonary remain on Ventolin Trelegy along with albuterol treatment [id number] with smaller dose of steroid. _Severe gastritis and gastroesophageal reflux syndrome: Will add pantoprazole 40 mg a day watch for further symptomatic where EGD eventually. _Nonhealing small ulcer on the left leg with severe PAD might require further testing continue topical care currently. CODE STATUS: Full code. Discussion: Patient mortality still quite that high she has a lot of risk factor and very high comorbidity for complication. Continue supportive care and curren t management for now still waiting for the final culture in the meanwhile patient will have Zosyn and antibiotics. Objective - Vital Signs Vital signs: Vital Signs Temp 97.9 F 02/06/24 04:00 Pulse 104 H 02/06/24 04:00 Resp 18 02/06/24 04:00 BP 98/62 02/06/24 04:00 Pulse Ox 98 02/06/24 04:00 FiO2 Intake & Output 02/05/24 02/05/24 02/06/24 06:59 18:59 06:59 Intake Total 100 Balance 100 Weight 70.307 kg 43.5 kg Intake: Intake, IV Titration 100 Amount Piperacillin-Tazobactam 3 100 .375 gm In Sodium Chloride 0.9% 100 ml @ 25 mls/hr IVPB Q12H [facility] Rx# :[id number] Other: Voiding Method External Catheter # Bowel Movements 2 - Labs CBC & Chem 7: 02/06/24 11:26 02/06/24 11:26 Labs: Abnormal Lab Results - Last 24 Hours (Table) 02/05/24 02/05/24 02/05/24 Range/Units 13:18 13:18 13:18 WBC 24.5 H (3.8-10.6) k/uL Neutrophils # 22.3 H (1.3-7.7) k/uL Lymphocytes # 0.7 L (1.0-4.8) k/uL PT (10.0-12.5) sec APTT (22.0-30.0) sec Sodium 136 L (137-145) mmol/L Potassium 5.5 H (3.5-5.1) mmol/L BUN 83 H (7-17) mg/dL Creatinine 3.33 H (0.52-1.04) mg/dL Magnesium 2.5 H (1.6-2.3) mg/dL Total Bilirubin 1.8 H (0.2-1.3) mg/dL AST 197 H (14-36) U/L ALT 275 H (4-34) U/L Alkaline Phosphatase 615 H (38-126) U/L Troponin I (0.000-0.034) ng/mL Total Protein 5.3 L (6.3-8.2) g/dL Albumin 2.9 L (3.5-5.0) g/dL Urine Appearance Cloudy H (Clear) Urine Protein 1+ H (Negative) Urine Blood Large H (Negative) Ur Leukocyte Esterase Small H (Negative) Urine RBC 47 H (0-5) /hpf Urine Bacteria Occasional H (None) /hpf Urine Mucus Rare H (None) /hpf 02/05/24 02/05/24 Range/Units 13:18 14:29 WBC (3.8-10.6) k/uL Neutrophils # (1.3-7.7) k/uL Lymphocytes # (1.0-4.8) k/uL PT 9.9 L (10.0-12.5) sec APTT 18.4 L (22.0-30.0) sec Sodium (137-145) mmol/L Potassium (3.5-5.1) mmol/L BUN (7-17) mg/dL Creatinine (0.52-1.04) mg/dL Magnesium (1.6-2.3) mg/dL Total Bilirubin (0.2-1.3) mg/dL AST (14-36) U/L ALT (4-34) U/L Alkaline Phosphatase (38-126) U/L Troponin I 0.142 H* (0.000-0.034) ng/mL Total Protein (6.3-8.2) g/dL Albumin (3.5-5.0) g/dL Urine Appearance (Clear) Urine Protein (Negative) Urine Blood (Negative) Ur Leukocyte Esterase (Negative) Urine RBC (0-5) /hpf Urine Bacteria (None) /hpf Urine Mucus (None) /hpf
[2024-02-07] MEDS: MIDODRINE 5 MG TAB PO PRN (05:31)
[2024-02-07] MEDS ORDERED: MIDODRINE 5 MG TAB PO PRN (07:30)
[2024-02-07 09:37] LABS: HCT 34.7 % (34.0-46.0); HGB 10.7 gm/dL (11.4-16.0); Hypochromasia Moderate; MCH 32.3 pg (25.0-35.0); MCHC 30.8 g/dL (31.0-37.0); Macrocytosis Moderate; Mean Platelet Volume 8.3; Platelet Count 307 k/uL (150-450); RDW 14.5 % (11.5-15.5); WBC 27.9 k/uL (3.8-10.6)
[2024-02-07 09:52] LABS: ALT 174 U/L (4-34); AST 117 U/L (14-36); African American GFR (CKD) 16 (>60 ml/min/1.73 sqM); Albumin 2.5 g/dL (3.5-5.0); Alkaline Phosphatase 529 U/L (38-126); Anion Gap 12 mmol/L; Blood Urea Nitrogen 69 mg/dL (7-17); Carbon Dioxide 16 mmol/L (22-30); Chloride 112 mmol/L (98-107); Glucose 52 mg/dL (74-99); Non-African American GFR(CKD) 14 (>60 ml/min/1.73 sqM); Potassium 3.8 mmol/L (3.5-5.1); Sodium 140 mmol/L (137-145); Total Bilirubin 1.2 mg/dL (0.2-1.3); Total Protein 4.7 g/dL (6.3-8.2)
--- NOTE | 2024-02-07 10:45 | P.PN ---
Subjective Progress Note Date: 02/07/24 Principal diagnosis: Transaminitis This is a pleasant 83-year-old female who was brought into the emergency department from the retirement with complaints of weakness, decreased appetite and poor oral intake. She has a past medical history including COPD, hypertension and daily alcohol use. Patient is a former smoker. Patient's daughter is at the bedside. Patient states that she has been having some nausea and that has been causing her decreased appetite so she has not been eating or drinking much. This has been ongoing for few days. Denies any abdominal pain and no vomiting. Patient was admitted for dehydration, acute kidney injury, weakness, transaminitis, elevated troponins and reported atrial fibrillation. Patient denies any known gallbladder disease and no previous liver disease. Denies any history of hepatitis. She had a gallbladder ultrasound which reported acute hydrops with multiple shadowing gallstones. Gallbladder wall mildly thickened correlate clinically, hepatic steatosis. Liver is reported as coarse in echotexture. CBD 0.56 cm. Patient has been afebrile. She was noted to have leukocytosis on admission with a WBC of 24.5 and today 30.0. She was started on IV Zosyn. Multiple consultants placed to gastroenterology, general surgery, nephrology, and cardiology. Admitting labs total bilirubin 1.8 AST 197 ALT 275 alkaline phosphatase 615 repeat total bilirubin 1.4 AST 160 ALT 233 alkaline phosphatase 669 amylase 122 lipase 266. Patient currently denies any abdominal pain, no nausea or vomiting. No chest pain, or shortness of breath. She wears oxygen at home for history of COPD, feels like breathing might be slightly labored today. She underwent HIDA scan ordered from general surgery which reported as normal limits. 02/07/2024 Patient seen and examined lying in bed. She has oxygen on per nasal cannula, breathing heavily. Denies any abdominal pain, nausea or vomiting. She is scheduled to undergo MRCP today. Patient reports she used to be a daily alcohol drinker. States that she is no longer drinking alcohol. Was not very forthcoming on how much she drank or how long. Labs reviewed, patient remains with leukocytosis with WBC 27.9. LFTs are trending down total bilirubin 1.2 AST 117 ALT 174 alkaline phosphatase 529. Objective - Vital Signs Vital signs: Vital Signs Temp 98 F 02/07/24 04:00 Pulse 100 02/07/24 04:00 Resp 18 06/21/24 04:00 BP 90/50 02/07/24 06:30 Pulse Ox 98 02/07/24 04:00 FiO2 Intake & Output 02/06/24 02/07/24 02/07/24 18:59 06:59 18:59 Output Total 400 Balance -400 Weight 43.5 kg Output: Urine 400 Straight 400 Other: Voiding Method External Catheter External Catheter # Bowel Movements 1 2 - Exam General appearance: The patient is alert, oriented, Cachectic, appears in no acute distress. HET: Head is normocephalic and atraumatic. Conjunctiva pink. Sclera anicteric. Neck: Supple without lymphadenopathy. Abdomen: Soft, nontender, nondistended with bowel sounds. No guarding or rigidity. Extremities: Normal skin color and turgor. No pedal edema Skin: No rashes, no jaundice Neurological: No focal deficits. Alert and oriented. - Labs CBC & Chem 7: 02/07/24 08:10 02/07/24 08:10 Labs: Abnormal Lab Results - Last 24 Hours (Table) 02/06/24 02/06/24 02/06/24 Range/Units 11:26 11:26 11:26 WBC 30.0 H (3.8-10.6) k/uL RBC 3.63 L (3.80-5.40) m/uL MCV 104.0 H (80.0-100.0) fL MCHC 30.5 L (31.0-37.0) g/dL Neutrophils # (Manual) 27.90 H (1.3-7.7) k/uL Lymphocytes # (Manual) 0.90 L (1.0-4.8) k/uL Monocytes # (Manual) 1.20 H (0-1.0) k/uL Metamyelocytes # (Man) 0.30 H (0) k/uL Chloride 108 H (98-107) mmol/L BUN 77 H (7-17) mg/dL Creatinine 3.43 H (0.52-1.04) mg/dL Glucose 64 L (74-99) mg/dL Total Bilirubin 1.4 H (0.2-1.3) mg/dL AST 160 H (14-36) U/L ALT 233 H (4-34) U/L Alkaline Phosphatase 669 H (38-126) U/L Troponin I 0.177 H* (0.000-0.034) ng/mL Total Protein 5.1 L (6.3-8.2) g/dL Albumin 2.8 L (3.5-5.0) g/dL Amylase 122 H (30-110) U/L Microbiology - Last 24 Hours (Table) 02/05/24 14:16 Blood Culture - Preliminary Blood 02/05/24 14:16 Blood Culture - Preliminary Blood Assessment and Plan (1) Transaminitis Narrative/Plan: 83-year-old female presenting with weakness, decreased appetite with findings of transaminitis. Patient has elevated LFTs in a cholestatic pattern with evidence of gallstones however no reported CBD dilation and no abdominal pain. Patient also presents with leukocytosis, need to consider possible choledocholithiasis, consider possible ascending cholangitis. Recommend MRCP. Continue with IV antibiotics. Recommend clear liquid diet, treat symptomatically and follow closely. Labs currently trending down. MRCP with no evidence of ductal stricture, choledocholithiasis or biliary ductal dilation. Unclear etiology of transaminitis could be secondary to cholelithiasis also patient with history of alcohol abuse and may have some underlying hepatocellular disease. Continue to monitor LFTs. Patient can follow-up with gastroenterology on discharge. Current Visit: Yes Status: Acute Code(s): R74.01 - ELEVATION OF LEVELS OF LIVER TRANSAMINASE LEVELS SNOMED Code(s): 417648037 (2) History of alcohol abuse Current Visit: Yes Status: Acute Code(s): F10.11 - ALCOHOL ABUSE, IN REMISSION SNOMED Code(s): 175765005 (3) NARAYAN (acute kidney injury) Current Visit: Yes Status: Acute Code(s): N17.9 - ACUTE KIDNEY FAILURE, UNSPECIFIED SNOMED Code(s): 79992453 (4) Cholelithiasis Narrative/Plan: General surgery following Current Visit: Yes Status: Acute Code(s): K80.20 - CALCULUS OF GALLBLADDER W/O CHOLECYSTITIS W/O OBSTRUCTION SNOMED Code(s): 753524473 Plan: 1. Continue symptomatic and supportive care 2. Low-fat diet 3. Daily CBC, CMP 4. MRCP ordered and reviewed with no evidence of ductal stricture, choledocholithiasis or biliary ductal dilation. Cholelithiasis noted. 5. No indication for ERCP 6. Continue with recommendations from general surgery 7. Rest of medical management per primary medical team Thank you for allowing us to participate in the care of the patient, the GI service will sign off, gastroenterology will not be available at the hospital this weekend and through next week. If further evaluation by gastroenterology is required the patient will need transfer as per the primary team's discretion. Dr. Flakita Cherry I agree with the dictator's note, documented as a scribe by Pat Crawford.
--- NOTE | 2024-02-07 11:35 | P.PN ---
Subjective Patient is seen in follow-up for acute kidney injury. Renal function improving with IV fluids. Patient is a poor historian. Family present at bedside. Scheduled for MRCP today. Vital signs are stable. General: Resting in bed. HEENT: Head exam is unremarkable. LUNGS: No audible rhonchi or wheezes. HEART: Rate and Rhythm are regular. ABDOMEN: No distention. EXTREMITITES: No edema. Objective - Vital Signs Vital signs: Vital Signs Temp 98 F 02/07/24 04:00 Pulse 96 02/07/24 08:23 Resp 18 02/07/24 04:00 BP 90/50 02/07/24 06:30 Pulse Ox 98 02/07/24 04:00 FiO2 Intake & Output 02/06/24 02/07/24 02/07/24 18:59 06:59 18:59 Output Total 400 Balance -400 Weight 43.5 kg Output: Urine 400 Straight 400 Other: Voiding Method External Catheter External Catheter # Bowel Movements 1 2 - Labs CBC & Chem 7: 02/07/24 08:10 02/07/24 08:10 Labs: Abnormal Lab Results - Last 24 Hours (Table) 02/06/24 02/06/24 02/06/24 Range/Units 11:26 11:26 11:26 WBC 30.0 H (3.8-10.6) k/uL RBC 3.63 L (3.80-5.40) m/uL Hgb (11.4-16.0) gm/dL MCV 104.0 H (80.0-100.0) fL MCHC 30.5 L (31.0-37.0) g/dL Neutrophils # (Manual) 27.90 H (1.3-7.7) k/uL Lymphocytes # (Manual) 0.90 L (1.0-4.8) k/uL Monocytes # (Manual) 1.20 H (0-1.0) k/uL Metamyelocytes # (Man) 0.30 H (0) k/uL Chloride 108 H (98-107) mmol/L Carbon Dioxide (22-30) mmol/L BUN 77 H (7-17) mg/dL Creatinine 3.43 H (0.52-1.04) mg/dL Glucose 64 L (74-99) mg/dL Calcium (8.4-10.2) mg/dL Total Bilirubin 1.4 H (0.2-1.3) mg/dL AST 160 H (14-36) U/L ALT 233 H (4-34) U/L Alkaline Phosphatase 669 H (38-126) U/L Troponin I 0.177 H* (0.000-0.034) ng/mL Total Protein 5.1 L (6.3-8.2) g/dL Albumin 2.8 L (3.5-5.0) g/dL Amylase 122 H (30-110) U/L 02/07/24 02/07/24 Range/Units 08:10 08:10 WBC 27.9 H (3.8-10.6) k/uL RBC 3.30 L (3.80-5.40) m/uL Hgb 10.7 L (11.4-16.0) gm/dL MCV 105.0 H (80.0-100.0) fL MCHC 30.8 L (31.0-37.0) g/dL Neutrophils # (Manual) (1.3-7.7) k/uL Lymphocytes # (Manual) (1.0-4.8) k/uL Monocytes # (Manual) (0-1.0) k/uL Metamyelocytes # (Man) (0) k/uL Chloride 112 H (98-107) mmol/L Carbon Dioxide 16 L (22-30) mmol/L BUN 69 H (7-17) mg/dL Creatinine 3.07 H (0.52-1.04) mg/dL Glucose 52 L (74-99) mg/dL Calcium 8.0 L (8.4-10.2) mg/dL Total Bilirubin (0.2-1.3) mg/dL AST 117 H (14-36) U/L ALT 174 H (4-34) U/L Alkaline Phosphatase 529 H (38-126) U/L Troponin I (0.000-0.034) ng/mL Total Protein 4.7 L (6.3-8.2) g/dL Albumin 2.5 L (3.5-5.0) g/dL Amylase (30-110) U/L Microbiology - Last 24 Hours (Table) 02/05/24 14:16 Blood Culture - Preliminary Blood 02/05/24 14:16 Blood Culture - Preliminary Blood Assessment and Plan Plan: Assessment: 1. Acute kidney injury secondary to ATN secondary to hypovolemia further worsen with the use of Lasix and losartan. Creatinine 4.11 and improved to 3.07. Baseline creatinine 0.7-0.8 from December 2023. No hydronephrosis noted on kidney ultrasound. 2. Mild hyperkalemia. Hemolyzed sample. Patient was on losartan outpatient. Improved. 3. Hypotension related to hypovolemia and antihypertensives. 4. Gallstones. Surgery following. MRCP pending. 5. Metabolic acidosis secondary to acute kidney injury and IV fluids. Plan: Change IV fluids to bicarb drip. Continue to hold antihypertensives. Follow-up a.m. cortisol level. Avoid nephrotoxins including Fleet enemas., Continue to monitor renal function and urine output. Follow-up echocardiogram.
--- NOTE | 2024-02-07 11:39 | CA ---
Transthoracic Echo Report Name: Abbey Mars Age: 83 Gender: F : 1940 Exam Date: 02/06/2024 14:17 Exam Location: [facility] Ht (in): 62 Wt (lb): 90 Ordering Physician: Selene Saeed Attending/Referring Phys: [id number], Darlin Merchandiser Seasonal Nely Ponce RDCS Procedure CPT: Indications: LVF Cardiac Hx: Technical Quality: Fair Contrast 1: Total Dose (mL): Contrast 2: Total Dose (mL): MEASUREMENTS (Male / Female) Normal Values 2D ECHO LV Diastolic Diameter PLAX 4.1 cm 4.2 - 5.9 / 3.9 - 5.3 cm LV Systolic Diameter PLAX 2.9 cm IVS Diastolic Thickness 1.2 cm 0.6 - 1.0 / 0.6 - 0.9 cm LVPW Diastolic Thickness 1.3 cm 0.6 - 1.0 / 0.6 - 0.9 cm LV Relative Wall Thickness 0.6 RV Internal Dim ED PLAX 2.7 cm LVOT Diameter 1.8 cm LA Systolic Diameter LX 3.7 cm 3.0 - 4.0 / 2.7 - 3.8 cm LV Diastolic Volume MOD BP 29.7 cm??? 67 - 155 / 56 - 104 cm??? LV Systolic Volume MOD BP 10.1 cm??? 22 - 58 / 19 - 49 cm??? LV Ejection Fraction MOD BP 66.1 % >= 55 % LV Cardiac Index MOD BP 1585.9 cm???/min???m??? LV Diastolic Volume MOD 4C 36.9 cm??? LV Systolic Volume MOD 4C 10.3 cm??? LV Ejection Fraction MOD 4C 72.0 % LV Cardiac Index MOD 4C 2148.5 cm???/min???m??? LV Diastolic Length 4C 5.9 cm LV Systolic Length 4C 4.5 cm LV Diastolic Volume MOD 2C 22.5 cm??? LV Systolic Volume MOD 2C 9.2 cm??? LV Ejection Fraction MOD 2C 59.0 % LV Cardiac Index MOD 2C 1072.2 cm???/min???m??? LV Diastolic Length 2C 5.4 cm LV Systolic Length 2C 4.8 cm LA Volume 25.1 cm??? 18 - 58 / 22 - 52 cm??? LA Volume Index 19.0 cm???/m??? 16 - 28 cm???/m??? M-MODE Aortic Root Diameter MM 3.1 cm LA Systolic Diameter MM 3.9 cm LA Ao Ratio MM 1.3 AV Cusp Separation MM 1.0 cm DOPPLER AV Peak Velocity 333.3 cm/s AV Peak Gradient 44.4 mmHg AV Mean Velocity 227.5 cm/s AV Mean Gradient 24.1 mmHg AV Velocity Time Integral 48.9 cm LVOT Peak Velocity 115.4 cm/s LVOT Peak Gradient 5.3 mmHg LVOT Velocity Time Integral 25.4 cm LVOT Stroke Volume 65.1 cm??? LVOT Stroke Volume Index 47.8 ml/m??? LVOT Cardiac Index 5255.5 cm???/min???m??? AV Area Cont Eq vti 1.3 cm??? AV Area Cont Eq pk 0.9 cm??? MV Area PHT 2.2 cm??? Mitral E Point Velocity 79.9 cm/s Mitral A Point Velocity 119.8 cm/s Mitral E to A Ratio 0.7 MV Deceleration Time 341.8 ms FINDINGS Left Ventricle Left ventricular ejection fraction is estimated at 60-65%. Mildly increased septal wall thickness. Moderately increased posterior wall thickness. No obvious regional wall motion abnormalities. Left ventricular cavity size normal. Right Ventricle Normal right ventricular size and function. Normal right ventricular size. Right Atrium Mild right atrial dilatation. Left Atrium Mild left atrial dilatation. Mitral Valve Structurally normal mitral valve. Trace mitral regurgitation. Mitral valve thickened. Aortic Valve Moderate aortic stenosis with a peak gradient of 44 mmHg and a mean gradient of 24 mmHg. Trace aortic regurgitation. Thickened aortic valve. Tricuspid Valve Structurally normal tricuspid valve. Trace to mild tricuspid regurgitation. Pulmonic Valve Structurally normal pulmonic valve. Trace pulmonic regurgitation. Pericardium Small pericardial effusion. Thickened pericardium. Aorta Normal size aortic root and proximal ascending aorta. CONCLUSIONS Normal LV systolic function Aortic sclerosis. Possible bicuspid aortic valve. Moderate aortic stenosis with a mean gradient of 25 mmHg Previewed by: Dr. Azael Brian MD (Electronically Signed) Final Date: 07 February 2024 11:38
--- NOTE | 2024-02-07 13:16 | P.CNPUL ---
History of Present Illness Consult date: 02/07/24 Requesting physician: Hayden Lizarraga Reason for consult: COPD Chief complaint: Abdominal pain, weakness, poor oral intake History of present illness: This is an 83-year-old white female known history of severe COPD, Gold stage IV O2 dependent, normally sees Dr. King for her underlying COPD. Patient is also known to have history of hypertension, peripheral vessel occlusive disease, chronic kidney disease stage IIIb, patient has been at [facility] since mid December. Prior to this the patient was apparently hospitalized at [facility] in mid November when the patient had a CVA requiring mechanical thrombectomy and shortly after she went on to develop hemorrhagic transformation in the right MCA territory with edema and mass effect treated for over 2 weeks. Patient was sent shortly after to rehab at [facility], and she has been at [facility] since 12/29. Over the last 2 weeks, the patient has been noted to decline, she has been generally weak, not eating anymore, she had multiple constitutional symptoms, and seems to be gradually going downhill and failure to thrive. Yesy ent was brought into the hospital, she was found to have acute kidney injury and significantly elevated liver enzymes with elevated lipase of 257. She was also noted to have leukocytosis with WBC count as high as 30,000. Patient was also noted to be dehydrated and her BUN was as high as 77 creatinine 3.43, liver enzymes noted to be extremely elevated with alkaline phosphatase of 669 AST of 160 ALT of 233 and her bilirubin 1.4. Workup so far includes ultrasound of the gallbladder, chest x-ray which showed no evidence of any significant change, HIDA scan, and I believe this patient is scheduled to have MRCP is pending since admission patient has been seen by many consultants including nephrology, cardiology, gastroenterology, and general surgery. Considering her COPD we were asked to see the patient regarding her pulmonary status which seems to be relatively stable considering the patient has Gold stage IV COPD and she is on proper bronchodilators for now went ahead and added steroids, I also added Pulmicort and Perforomist Review of Systems Patient is not a great historian, however she has her son at bedside who seems to be concerned about her overall clinical status and multiple confusional symptoms obviously the patient is a failure to thrive. Not to mention she has many abnormal GI findings and these are being addressed by different consultan ts. Past Medical History Past Medical History: COPD, Hypertension Additional Past Medical History / Comment(s): 3LPM NC History of Any Multi-Drug Resistant Organisms: None Reported Past Surgical History: No Surgical Hx Reported Past Anesthesia/Blood Transfusion Reactions: Unable to Obtain Type of Cardiac Device: Loop Device Placement Date:: Unsure of date per patient Past Psychological History: No Psychological Hx Reported Smoking Status: Former smoker Past Alcohol Use History: Daily Past Drug Use History: None Reported - Past Family History Mother Family Medical History: Cancer, Dementia Additional Family Medical History / Comment(s): Mother had breast cancer and passed from dementia. Medications and Allergies Home Medications Medication Instructions Recorded Confirmed Type Acetaminophen [Tylenol] 650 mg PO Q4H PRN 02/05/24 02/05/24 History Aspirin [[place] Aspirin EC] 81 mg PO DAILY@0802/05/24 02/05/24 History Atorvastatin [Lipitor] 80 mg PO HS 02/05/24 02/05/24 History Budesonide [Pulmicort] 1 mg INHALATION RT-BID@0800,209902/05/24 02/05/24 Histo ry Cetirizine HCl [Zyrtec] 10 mg PO HS@209902/05/24 02/05/24 History Ensure Clear 120 ml PO TID@0800,1200,1700 02/05/24 02/05/24 History Fluticasone Nasal [place] [Flonase 2 spray EA NOSTRIL HS@2130 02/05/24 02/05/24 History Nasal [place]] Furosemide [Lasix] 20 mg PO DAILY@79902/05/24 02/05/24 History Ipratropium-Albuterol Nebulize 3 ml INHALATION RT-Q4H PRN 02/05/24 02/05/24 History [Duoneb 0.5 mg-3 mg/3 ml Soln] Ipratropium-Albuterol Nebulize 3 ml INHALATION RT-QID@00,06,12,18 02/05/24 02/05/24 History [Duoneb 0.5 mg-3 mg/3 ml Soln] Lidocaine External Gel 4% 1 applic TOPICAL DAILY@79902/05/24 02/05/24 History Losartan [Cozaar] 25 mg PO DAILY@79902/05/24 02/05/24 History Magnesium Hydroxide [Milk of 7,200 mg PO Q48H PRN 02/05/24 02/05/24 History Magnesia Concentrate] Na Phos,M-B/Na Phos,Di-Ba [Fleet 133 ml RECTAL DAILY PRN 02/05/24 02/05/24 His tory Adult] Ondansetron [Zofran] 4 mg PO Q6H PRN 02/05/24 02/05/24 History Pantoprazole Sodium [Protonix] See Taper PO DIRECTED 02/05/24 02/05/24 History Polyvinyl Alcohol/Povidone 1 applic BOTH EYES BID PRN 02/05/24 02/05/24 History [[place] Eye Drop] Potassium Chloride ER [K-Dur 20] 20 meq PO DAILY@1700 02/05/24 02/05/24 History Saline Nasal Gel [[place] Nasal Gel] 1 applic EA NOSTRIL BID 02/05/24 02/05/24 History Sennosides [Senokot] 8.6 mg PO BID@0800,1700 02/05/24 02/05/24 History bisacodyL [Dulcolax] 10 mg RECTAL DAILY PRN 02/05/24 02/05/24 History Allergies Allergy/AdvReac Type Severity Reaction Status Date / Time No Known Allergies Allergy Verified 02/05/24 14:46 Physical Exam Vitals: Vital Signs Temp Pulse Pulse Resp BP BP Pulse Ox 02/07/24 11:52 104 H 02/07/24 11:40 100 02/07/24 08:23 96 02/07/24 08:11 96 02/07/24 08:00 97.1 F L 70 20 85/43 93 L 02/07/24 06:30 90/50 02/07/24 04:00 98 F 100 18 80/40 98 02/07/24 02:00 99 18 02/07/24 00:00 97.6 F 99 18 105/54 98 02/06/24 21:21 97 02/06/24 21:11 94 02/06/24 20:00 98.3 F 98 18 89/46 99 02/06/24 16:13 96 02/06/24 16:00 70 16 98/57 95 02/06/24 15:58 96 02/06/24 14:00 16 Intake and Output 02/06/24 02/07/24 02/07/24 22:59 06:59 14:59 Output Total 400 Balance -400 Output: Urine 400 Straight 400 Other: Voiding Method External Catheter External Catheter External Catheter # Bowel Movements 2 General Appearance: Revealed 84-year-old female, frail looking, chronically ill, in mild respiratory distress, on 3 L nasal cannula with O2 sats of 97% Neck HEENT: Supple, no neck masses no JVD, no stridor. Lungs: Extremely diminished breath sound bilaterally no rhonchi no wheezes Chest Wall: Symmetrical chest expansion, no deformities, no tenderness over the chest wall. Heart: Irregularly irregular rhythm, 2/6 systolic murmur throughout the precordium. Abdomen: Soft nontender no megaly no rebound no guarding. Extremities: No clubbing edema or cyanosis, however the patient does have an ulcerated area in the left mid calf region with sterile dressing applied. Being followed by wound care Pulses: Good pulses bilaterally. Skin: No rashes except for the ulceration noted on the left lower extremity. Neurologic: Patient is arousable, not a great historian, no gross focal deficit. Results - Laboratory Findings CBC and BMP: 02/07/24 08:10 02/07/24 08:10 PT/INR, D-dimer PT 9.9 sec (10.0-12.5) L 02/05/24 14:29 INR 0.9 (<1.2) 02/05/24 14:29 Abnormal lab findings: Abnormal Labs 02/05/24 02/05/24 02/05/24 13:18 13:18 13:18 WBC 24.5 H RBC Hgb MCV MCHC Neutrophils # 22.3 H Neutrophils # (Manual) Lymphocytes # 0.7 L Lymphocytes # (Manual) Monocytes # (Manual) Metamyelocytes # (Man) PT APTT Sodium 136 L Potassium 5.5 H Chloride Carbon Dioxide BUN 83 H Creatinine 3.33 H Glucose Calcium Magnesium 2.5 H Total Bilirubin 1.8 H AST 197 H ALT 275 H Alkaline Phosphatase 615 H Troponin I Total Protein 5.3 L Albumin 2.9 L Amylase Urine Appearance Cloudy H Urine Protein 1+ H Urine Blood Large H Ur Leukocyte Esterase Small H Urine RBC 47 H Urine Bacteria Occasional H Urine Mucus Rare H 02/05/24 02/05/24 02/06/24 13:18 14:29 11:26 WBC 30.0 H RBC 3.63 L Hgb MCV 104.0 H MCHC 30.5 L Neutrophils # Neutrophils # (Manual) 27.90 H Lymphocytes # Lymphocytes # (Manual) 0.90 L Monocytes # (Manual) 1.20 H Metamyelocytes # (Man) 0.30 H PT 9.9 L APTT 18.4 L Sodium Potassium Chloride Carbon Dioxide BUN Creatinine Glucose Calcium Magnesium Total Bilirubin AST ALT Alkaline Phosphatase Troponin I 0.142 H* Total Protein Albumin Amylase Urine Appearance Urine Protein Urine Blood Ur Leukocyte Esterase Urine RBC Urine Bacteria Urine Mucus 02/06/24 02/06/24 02/07/24 11:26 11:26 08:10 WBC RBC Hgb MCV MCHC Neutrophils # Neutrophils # (Manual) Lymphocytes # Lymphocytes # (Manual) Monocytes # (Manual) Metamyelocytes # (Man) PT APTT Sodium Potassium Chloride 108 H 112 H Carbon Dioxide 16 L BUN 77 H 69 H Creatinine 3.43 H 3.07 H Glucose 64 L 52 L Calcium 8.0 L Magnesium Total Bilirubin 1.4 H AST 160 H 117 H ALT 233 H 174 H Alkaline Phosphatase 669 H 529 H Troponin I 0.177 H* Total Protein 5.1 L 4.7 L Albumin 2.8 L 2.5 L Amylase 122 H Urine Appearance Urine Protein Urine Blood Ur Leukocyte Esterase Urine RBC Urine Bacteria Urine Mucus 02/07/24 08:10 WBC 27.9 H RBC 3.30 L Hgb 10.7 L MCV 105.0 H MCHC 30.8 L Neutrophils # Neutrophils # (Manual) Lymphocytes # Lymphocytes # (Manual) Monocytes # (Manual) Metamyelocytes # (Man) PT APTT Sodium Potassium Chloride Carbon Dioxide BUN Creatinine Glucose Calcium Magnesium Total Bilirubin AST ALT Alkaline Phosphatase Troponin I Total Protein Albumin Amylase Urine Appearance Urine Protein Urine Blood Ur Leukocyte Esterase Urine RBC Urine Bacteria Urine Mucus - Diagnostic Findings Chest x-ray: image reviewed (Chest x-ray is consistent with COPD and chronic no nspecific parenchymal changes) Additional studies: MRCP is pending Assessment and Plan Assessment: Impression: Suspect abdominal sepsis, possible ascending cholangitis, on antibiotics/Zosyn, MRCP is pending. Severe COPD/emphysema Gold stage IV Chronic hypoxic respiratory failure Abnormal liver enzymes with significant transaminitis, being addressed accordingly. 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 Being addressed by wound care staff. Recommendation: Agree with the present treatment plan for her suspected abdominal sepsis/ascending cholangitis workup is in progress, MRCP is pending Continue antibiotics Continue present bronchodilators, added Pulmicort and Perforomist Continue oxygen and titrate accordingly Considering the overall picture, patient is quite ill, prognosis is guarded, Will continue to follow. Please refer to orders regarding her COPD placed on the chart Time with Patient: Greater than 30
[2024-02-07] MEDS: DEXTROSE 5% IN WATER 1,000 ML with SODIUM BICARB (1 MEQ/ML) 150 ML IV SCH (13:33)
--- NOTE | 2024-02-07 13:40 | MR ---
EXAMINATION TYPE: MR MRCP DATE OF EXAM: 02/07/2024 1:20 PM CLINICAL INDICATION:Female, 83 years old with history of Transaminitis, cholelithiasis, rule out CBD stone; PHH, Transaminitis, cholelithiasis, rule out CBD stone. COMPARISON: Nuclear medicine study 02/06/2024. TECHNIQUE: Multi planar, T2-weighted imaging with and without fat saturation and chemical shift imag ing was performed of the abdomen. Then, heavily T2 weighted imaging (half-Fourier acquisition single- shot turbo spin-echo) was utilized in order to study the biliary system. Maximum intensity projectio n images were reconstructed from the original data of the biliary tree. 3D images were created on a [employer] work station. No Gadolinium given. FINDINGS: Lower Thorax: No evidence for acute process. There may be trace bilateral pleural effusions. The hear t is mildly enlarged for size. MRCP: * The intrahepatic ducts have a normal appearance. * The extrahepatic ducts have a normal appearance. * The common hepatic duct measures 3 mm in size. * The common bile duct at the level of the pancreatic head measures 3 mm in size. * The pancreatic duct is normal. * The gallbladder appears distended with layering gallstones. Abdomen: Liver: No evidence for hepatic steatosis or cirrhosis. Scattered high T2 signal palpable cysts throug hout the liver. Pancreas: No ductal dilation. No evidence for solid mass. Spleen: Normal for size. Adrenal glands: Unremarkable. Kidneys: No evidence for obstructive uropathy. No suspicious renal masses. Right simple appearing rodrigue al cysts. Stomach and Bowel: No evidence for bowel wall thickening or evidence for obstruction. Few scattered c olonic diverticula. Retroperitoneum/Peritoneum: No evidence of pneumoperitoneum or free fluid. Vasculature: No aortic aneurysm. Musculoskeletal: The osseous structures appear intact. Lymph Nodes: No gross evidence for lymphadenopathy. Abdominal wall: Unremarkable. Wooten catheter in the urinary bladder. IMPRESSION: 1. Respiratory motion without evidence for ductal stricture, choledocholithiasis, or biliary ductal dilatation. 2. Cholelithiasis 3. Simple appearing right renal cyst. 4. Wooten catheter in appropriate placement. 5. Colonic diverticulosis. 6. Scattered high T2 hepatic probable cysts. 7. Cardiomegaly with trace bilateral pleural effusions suggested however there is respiratory motion ..
[2024-02-07] MEDS: ONDANSETRON 4 MG TAB PO PRN (14:06)
--- NOTE | 2024-02-07 14:10 | P.PN ---
Subjective Progress Note Date: 02/07/24 Reason for Consult (text): Elevated troponin and atrial fibrillation History of present illness: This is an 83-year-old female with no previous cardiac history, does not follow with a transit operator. She has a past medical history of CVA, hypertension, hy perlipidemia, chronic hypoxic respiratory failure, remote history of tobacco use. We have been asked to evaluate the patient for elevated troponin and atrial fibrillation. Patient states she came into the hospital because she was feeling tired and her breathing was a bit off. She denies any wheezing. No chest pain. She has also had decreased appetite. No palpitations. No blood in her urine or stools. She did have some vomiting 1 week ago and following that did not have much appetite. Family states that she has been more confused over the past week or so. She is not active at home. Patient had a recent CVA and had loop recorder placed in [place]. According to the patient's family, no evidence of atrial fibrillation. Patient quit smoking 15 years ago. EKG: Sinus rhythm. Telemetry has been reviewed finding sinus rhythm with no episodes of atrial fibrillation. Chest x-ray: No acute process Laboratory studies: WBC 30, hemoglobin 11.5. Sodium 142, potassium 4.5, BUN 77 creatinine 3.43. Magnesium 2.5. Total bilirubin 1.4, AST 160, ALT 233, alkaline phosphatase is 669. Troponin 0.142 and 0.177. Urinalysis leukoesterase small, RBCs 47. Home cardiac medications: Aspirin 81 mg daily, atorvastatin 80 mg at bedtime, Lasix 20 mg daily, losartan 25 mg daily, potassium chloride 20 mill equivalents daily. 02/06 Patient is seen today in follow-up. She states that she did not sleep well at night. She denies having any chest pain or chest pressure. She denies any abdominal pain. She has had no atrial fibrillation on telemetry. Yesterday she underwent HIDA scan that was normal and renal ultrasound that revealed nonobstructive right-sided nephrolithiasis. Renal cystic changes. Echocardiogram reveals normal LV systolic function. Aortic sclerosis. Possible bicuspid aortic valve. Moderate aortic stenosis with mean gradient of 25 mmHg. Physical examination: Gen: This is an 83-year-old female in no acute distress VS: reviewed HEENT: Head is atraumatic, normocephalic. Pupils equal, round. Sclerae is anicteric. NECK: Supple. No JVD. LUNGS: Clear to auscultation. No wheezes or rhonchi. No intercostal retractions. HEART: Regular rate and rhythm. No murmur. ABDOMEN: Soft No tenderness. EXTREMITIES: No pedal edema. No calf tenderness. NEUROLOGICAL: Patient is awake. Assessment: Troponin with minimal elevation, flat pattern, most likely secondary to acute kidney injury with chronic myocardial injury No evidence of atrial fibrillation either on telemetry unit and family deny any evidence of atrial fibrillation on loop recorder Acute kidney injury Elevated liver function test and gallstones, GI on consult Recent hemorrhagic stroke and underwent thrombectomy in [place] November 2023 Hypertension Hyperlipidemia Chronic hypoxic respiratory failure Remote history of tobacco use Moderate aortic stenosis, possible bicuspid aortic valve Plan: Continue patient's home cardiac medications Cardiology will sign off this case and follow on an as-needed basis. Please reconsult for any new concerns. Patient may follow-up in the office in one to [address] Cat. Nurse practitioner note has been reviewed, I agree with documented findings and plan of care. Patient was seen and examined. Objective - Vital Signs Vital signs: Vital Signs Temp 98 F 02/07/24 04:00 Pulse 96 02/07/24 08:23 Resp 18 02/07/24 04:00 BP 90/50 02/07/24 06:30 Pulse Ox 98 02/07/24 04:00 FiO2 Intake & Output 02/06/24 02/07/24 02/07/24 18:59 06:59 18:59 Output Total 400 Balance -400 Weight 43.5 kg Output: Urine 400 Straight 400 Other: Voiding Method External Catheter External Catheter # Bowel Movements 1 2 - Labs CBC & Chem 7: 02/07/24 08:10 02/07/24 08:10 Labs: Abnormal Lab Results - Last 24 Hours (Table) 02/06/24 02/06/24 02/06/24 Range/Units 11:26 11:26 11:26 WBC 30.0 H (3.8-10.6) k/uL RBC 3.63 L (3.80-5.40) m/uL MCV 104.0 H (80.0-100.0) fL MCHC 30.5 L (31.0-37.0) g/dL Neutrophils # (Manual) 27.90 H (1.3-7.7) k/uL Lymphocytes # (Manual) 0.90 L (1.0-4.8) k/uL Monocytes # (Manual) 1.20 H (0-1.0) k/uL Metamyelocytes # (Man) 0.30 H (0) k/uL Chloride 108 H (98-107) mmol/L BUN 77 H (7-17) mg/dL Creatinine 3.43 H (0.52-1.04) mg/dL Glucose 64 L (74-99) mg/dL Total Bilirubin 1.4 H (0.2-1.3) mg/dL AST 160 H (14-36) U/L ALT 233 H (4-34) U/L Alkaline Phosphatase 669 H (38-126) U/L Troponin I 0.177 H* (0.000-0.034) ng/mL Total Protein 5.1 L (6.3-8.2) g/dL Albumin 2.8 L (3.5-5.0) g/dL Amylase 122 H (30-110) U/L Microbiology - Last 24 Hours (Table) 02/05/24 14:16 Blood Culture - Preliminary Blood 02/05/24 14:16 Blood Culture - Preliminary Blood
[2024-02-07] MEDS: methylPREDNISolone SOD SUCCI 40 MG/ML 1 ML VIAL IV SCH (17:37)
--- NOTE | 2024-02-07 19:06 | P.PN ---
Subjective Progress Note Date: 02/07/24 Principal diagnosis: Chronic cholecystitis Patient seen on coverage for Dr. Sinclair. Today has had worsening shortness of breath. Leukocytosis persists at 27.9. Intermittent episodes of tachycardia. Liver enzymes are improved. We are following for possible cholecystitis. Patient denies abdominal pain. Appetite diminished. Today's liver enzymes slightly improved. MRCP was performed showing no evidence of biliary obstruction. HIDA scan showed filling of the gallbladder. Objective - Vital Signs Vital signs: Vital Signs Temp 97.7 F 02/07/24 16:00 Pulse 104 H 02/07/24 16:00 Resp 26 H 02/07/24 16:00 BP 108/67 02/07/24 16:00 Pulse Ox 98 02/07/24 16:00 FiO2 28 02/07/24 17:30 Intake & Output 02/07/24 02/07/24 02/08/24 06:59 18:59 06:59 Output Total 400 150 Balance -400 -150 Output: Urine 400 150 Straight 400 Other: Voiding Method External Catheter External Catheter # Bowel Movements 2 - Exam Abdomen: Soft, nondistended, mild diffuse tenderness - Labs CBC & Chem 7: 02/07/24 08:10 02/07/24 08:10 Labs: Abnormal Lab Results - Last 24 Hours (Table) 02/07/24 02/07/24 02/07/24 Range/Units 08:10 08:10 08:10 WBC 27.9 H (3.8-10.6) k/uL RBC 3.30 L (3.80-5.40) m/uL Hgb 10.7 L (11.4-16.0) gm/dL MCV 105.0 H (80.0-100.0) fL MCHC 30.8 L (31.0-37.0) g/dL Chloride 112 H (98-107) mmol/L Carbon Dioxide 16 L (22-30) mmol/L BUN 69 H (7-17) mg/dL Creatinine 3.07 H (0.52-1.04) mg/dL Glucose 52 L (74-99) mg/dL Calcium 8.0 L (8.4-10.2) mg/dL AST 117 H (14-36) U/L ALT 174 H (4-34) U/L Alkaline Phosphatase 529 H (38-126) U/L Total Protein 4.7 L (6.3-8.2) g/dL Albumin 2.5 L (3.5-5.0) g/dL Procalcitonin 1.20 H (0.02-0.09) ng/mL Microbiology - Last 24 Hours (Table) 02/05/24 14:16 Blood Culture - Preliminary Blood 02/05/24 14:16 Blood Culture - Preliminary Blood Assessment and Plan (1) Cholelithiasis Narrative/Plan: 83-year-old female with findings of gallstones and leukocytosis. Workup thus far reviewed with the family at the bedside. She has had further decline. No obvious source for sepsis has been identified thus far. She is demonstrating evidence of multisystem organ failure with liver dysfunction, pulmonary dysfunction, and kidney dysfunction. Family is not interested in surgery even if acute calculus cholecystitis was identified. They are considering hospice measures at this time and state they only want her to be comfortable. No further surgical plans at this time. Will sign off. Please reconsult if clinical scenario changes. Current Visit: Yes Status: Acute Code(s): K80.20 - CALCULUS OF GALLBLADDER W/O CHOLECYSTITIS W/O OBSTRUCTION SNOMED Code(s): 542142997
[2024-02-07 20:05] LABS: Glucose,Whole Blood 128 mg/dL (70-110)
[2024-02-07] MEDS: FORMOTEROL FUMARATE 20 MCG/2 ML NEBU INHALATION SCH (21:16)
--- NOTE | 2024-02-08 07:22 | P.PN ---
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 She was transferred to [facility] 12/30/2023 after being hospitalized and treated at [facility] on December 04, 2023 where patient developed to have droopy face and lack of vision found to have thrombus stroke affecting the right [employer] underwent mechanical thrombectomy and shortly after developed to have hemorrhagic transformation in the right [employer] territory with edema and mass effect was treated for over 2 weeks and finally was sent to rehab at [facility] on 12/30/2023 will continue to have significant lack of vision along with weakness in the left side with quite a bit debility. Patient is known to have advanced COPD on home O2 for long time steroid-depende nt and updraft treatment on more regular basis. Through the last few weeks developed to have significant decline physically and mentally developed in the last 5 days and to quit eating completely because of the claim that she is having worsening symptoms with nausea and abdominal fullness and discomfort which she did did not notify anybody about it until early or urgent blood work was done and showed significant acute kidney injury acute kidney failure with creatinine of 4.11 bun of 81 significant abnormal liver function test with alk phos 750 ALT 307 AST 214 total bili at 1.6 with lipase 257. Her white blood cell was 24,000 as well she was started on Zosyn and was diagnosed with sepsis possibly related to ascending cholangitis also acute kidney injury acute kidney failure with UTI, elevated troponin possible type II non-STEMI. Patient also has been complaining of severe increased pain and discomfort in the left leg area over small ulcerated area of the leg from not a clear etiology most likely vascular occlusive disease has been treated with topical care with mom with become quite painful lately. Family were notified with patient transfer early before she left [facility] they are aware of her condition at the time. 02/06/2024: Patient pain and discomfort is much better, with hydration kidney function has not improved much, also white blood cells still at 30,000, troponin at 0.177. Was seen and evaluated by general surgery who seen patient for possibly ga llstone from her ultrasound but decided to do HIDA scan to define if she had any real function loss or significant inflammation in the gallbladder might require urgent surgery. Cardiology team patient for her elevated troponin no conclusion was that at this point, remain on Zosyn for her sepsis which is most likely urinary tract infection continue Zosyn for now till final culture is back. Nephrology be seen patient in consultation for the acute kidney injury and ATN despite not much improvement yet the kidney function will continue hydration ultrasound continue supportive care with IV fluid. 02/07/2024: Patient continues to decline kidney function has been little bit better but continue to require significant amount of fluid for hydration to keep her blood pressure above 100 systolic. She is scheduled for MRCP this morning review all labs and testing with the family including the 2 daughter and they understand the seriousness of her condition and currently with abnormal liver function test mildly elevated troponin with a significantly high white blood cell diets out of coming from stroke recently has not helped so far. Still there is no source of infection currently with only exception if patient had mildly chance ascending cholangitis from the existing stone in the gallbladder and if one of the stone stuck in the common duct earlier before passing causing more problem with ascending cholangitis that will mostly cause gram-negative bacteremia which his blood culture so far is negative. Will continue supportive care for now continue hydration try to reverse the acute tubular necrosis. Patient is not making much urine which is another bad prognosis sign currently. REVIEW OF SYSTEMS: CONSTITUTIONAL: Well-developed quite bit pale in mild respiratory distress EYES: No icterus sclerae, no conjunctivitis. EARS, NOSE, MOUTH, THROAT, and FACE: No sore throat, lymphadenopathy, carotid bruits or deformity. RESPIRATORY: Decreased breath sound bilaterally with fine rhonchi slight cough and wheezes. CARDIOVASCULAR: Positive PND orthopnea palpitation slight edema. GASTROINTESTINAL: Significant abdominal distention with nausea vomiting no diarrhea or constipation but slight but bloating sensation discomfort. GENITOURINARY: Negative for Hematuria or UTI, no kidney stones. Significant decreased urine output with change in color. INTEGUMENT/BREAST: Negative for any muscular injury with mild osteoarthritis.. HEMATOLOGIC/LYMPHATIC: Negative for bleed or purpura. MUSCULOSKELTAL: Negative for Myalgia or arthralgia. Small ulcerated area on the left leg. NEURLOGICAL: No LOC, Sz or syncope, blurred vision dizziness or abnormality.. BEHAVIORAL/PSYCH: Negative. ENDOCRINE: Negative. PHYSICAL EXAMINATION: General Appearance: Alert, cooperative, in mild respiratory distress Neck HEENT: Supple, no lymphadenopathy, no thyroid enlargement, no carotid bruits. Lungs: Decreased breath sound bilaterally with rhonchi positive mild crackles in the bases positive mild expiratory wheezes. Chest Wall: Decreased expansion with deep inspiration no tenderness and no deformity was found on exam, no costochondral pain or discomfort. Heart: Irregular rate and rhythm, S1, S2 positive S3 positive systolic murmur. Back: Symmetric, no curvature, ROM normal, no CVA tenderness. Abdomen: Soft positive bowel sounds slight tenderness and discomfort in the right upper quadrant area no rebound no rigidity. Extremities: Extremities normal, atraumatic, no cyanosis or edema. Small ulcerated area quite bit painful in the left leg. Pulses: 2+ and symmetric. Skin: Skin color, texture, tugor normal, no rashes or lesions. Neurologic: Alert oriented x3 cranial nerves II through XII intact, no motor deficit, no abnormal balance or gait. ASSESSMENT AND PLAN: _Sepsis: Secondary to ascending cholangitis and possible UTI, will continue to be on Zosyn along with IV fluid and hydration. _Acute kidney injury secondary to severe acute tubular necrosis with severe dehydration not eating or drinking for the last few days significantly elevated BUN/creatinine also this is can be hepatorenal syndrome as well causing more injury to the kidney, hydration watch urine output carefully will consult nephrology ultrasound of the kidney to be done. Sodium bicarbonate was added to patient medication currently. _Abdominal pain with intractable nausea and severe symptoms this is so far more acute on subacute cholecystitis and cholelithiasis continue supportive care patient is not a surgical candidate currently. _Acute cholecystitis with cholelithiasis: He is going for an MRCP to make sure is no other finding consistent with worsening problem in the [place] pancreatic area. _Severe leukocytosis: Combination of sepsis along with Steroid reaction continue to watch symptoms closely patient still on IV antibiotics. _Elevated troponin with possible type II non-STEMI: Still waiting for conclusion of cardiology. _Advanced COPD: Has been seeing pulmonary remain on Ventolin Trelegy along with albuterol treatment [id number] with smaller dose of steroid. _Arrhythmia: With no sign of A-fib with RVR, review EKG Holter monitor looks perfectly fine at this point we will continue to watch for any tachycardia or arrhythmia. _UTI abnormal Urine test currently with the elevated white blood cell she is on Zosyn currently waiting for final culture. 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 _Severe gastritis and gastroesophageal reflux syndrome: Will add pantoprazole 40 mg a day watch for further symptomatic where EGD eventually. _Nonhealing small ulcer on the left leg seen by wound clinic continue topical care. CODE STATUS: DO NOT RESUSCITATE Discussion: Patient comorbidity is really high looks like multiorgan failure currently and mortality would be very high as well she is not a candidate currently for any surgical intervention family apparently make patient no code and leaning more toward comfort care at some point. Objective - Vital Signs Vital signs: Vital Signs Temp 97.6 F 02/07/24 00:00 Pulse 99 02/07/24 02:00 Resp 18 02/07/24 02:00 BP 105/54 02/07/24 00:00 Pulse Ox 98 02/07/24 00:00 FiO2 Intake & Output 02/06/24 02/06/24 02/07/24 06:59 18:59 06:59 Intake Total 100 Balance 100 Weight 43.5 kg 43.5 kg Intake: Intake, IV Titration 100 Amount Piperacillin-Tazobactam 3 100 .375 gm In Sodium Chloride 0.9% 100 ml @ 25 mls/hr IVPB Q12H [facility] Rx# :[id number] Other: Voiding Method External Catheter External Catheter External Catheter # Bowel Movements 2 1 2 - Labs CBC & Chem 7: 02/07/24 08:10 02/07/24 08:10 Labs: Abnormal Lab Results - Last 24 Hours (Table) 02/06/24 02/06/24 02/06/24 Range/Units 11:26 11:26 11:26 WBC 30.0 H (3.8-10.6) k/uL RBC 3.63 L (3.80-5.40) m/uL MCV 104.0 H (80.0-100.0) fL MCHC 30.5 L (31.0-37.0) g/dL Neutrophils # (Manual) 27.90 H (1.3-7.7) k/uL Lymphocytes # (Manual) 0.90 L (1.0-4.8) k/uL Monocytes # (Manual) 1.20 H (0-1.0) k/uL Metamyelocytes # (Man) 0.30 H (0) k/uL Chloride 108 H (98-107) mmol/L BUN 77 H (7-17) mg/dL Creatinine 3.43 H (0.52-1.04) mg/dL Glucose 64 L (74-99) mg/dL Total Bilirubin 1.4 H (0.2-1.3) mg/dL AST 160 H (14-36) U/L ALT 233 H (4-34) U/L Alkaline Phosphatase 669 H (38-126) U/L Troponin I 0.177 H* (0.000-0.034) ng/mL Total Protein 5.1 L (6.3-8.2) g/dL Albumin 2.8 L (3.5-5.0) g/dL Amylase 122 H (30-110) U/L Microbiology - Last 24 Hours (Table) 02/05/24 14:16 Blood Culture - Preliminary Blood 02/05/24 14:16 Blood Culture - Preliminary Blood
[2024-02-08 08:49] LABS: HCT 31.1 % (34.0-46.0); HGB 9.3 gm/dL (11.4-16.0); Hypochromasia Slight; MCH 30.8 pg (25.0-35.0); MCV 102.5 fL (80.0-100.0); Macrocytosis Slight; Mean Platelet Volume 8.6; Platelet Count 259 k/uL (150-450); RBC 3.03 m/uL (3.80-5.40); WBC 25.8 k/uL (3.8-10.6)
[2024-02-08 09:11] LABS: ALT 159 U/L (4-34); AST 111 U/L (14-36); African American GFR (CKD) 18 (>60 ml/min/1.73 sqM); Albumin 2.4 g/dL (3.5-5.0); Alkaline Phosphatase 518 U/L (38-126); Anion Gap 11 mmol/L; Blood Urea Nitrogen 73 mg/dL (7-17); Calcium 7.9 mg/dL (8.4-10.2); Carbon Dioxide 21 mmol/L (22-30); Chloride 108 mmol/L (98-107); Glucose 157 mg/dL (74-99); Non-African American GFR(CKD) 16 (>60 ml/min/1.73 sqM); Potassium 3.4 mmol/L (3.5-5.1); Sodium 140 mmol/L (137-145); Total Bilirubin 0.9 mg/dL (0.2-1.3); Total Protein 4.5 g/dL (6.3-8.2)
[2024-02-08] MEDS: HYDROmorphone 0.5 MG/0.5 ML SYRINGE IVP PRN (09:13)
--- NOTE | 2024-02-08 10:25 | P.PN ---
Subjective Progress Note Date: 02/08/24 This is an 83-year-old white female known history of severe COPD, Gold stage IV O2 dependent, normally sees Dr. King for her underlying COPD. Patient is also known to have history of hypertension, peripheral vessel occlusive disease, chronic kidney disease stage IIIb, patient has been at [facility] since mid December. Prior to this the patient was apparently hospitalized at [facility] in mid November when the patient had a CVA requiring mechanical thrombectomy and shortly after she went on to develop hemorrhagic transformation in the right MCA territory with edema and mass effect treated for over 2 weeks. Patient was sent shortly after to rehab at [facility], and she has been at [facility] since 12/29. Over the last 2 weeks, the patient has been noted to decline, she has been generally weak, not eating anymore, she had multiple constitutional symptoms, and seems to be gradually going downhill and failure to thrive. Patient was brought into the hospital, she was found to have acute kidney injury and significantly elevated liver enzymes with elevated lipase of 257. She was a lso noted to have leukocytosis with WBC count as high as 30,000. Patient was also noted to be dehydrated and her BUN was as high as 77 creatinine 3.43, liver enzymes noted to be extremely elevated with alkaline phosphatase of 669 AST of 160 ALT of 233 and her bilirubin 1.4. Workup so far includes ultrasound of the gallbladder, chest x-ray which showed no evidence of any significant change, HIDA scan, and I believe this patient is scheduled to have MRCP is pending since admission patient has been seen by many consultants including nephrology, cardiology, gastroenterology, and general surgery. Considering her COPD we were asked to see the patient regarding her pulmonary status which seems to be relatively stable considering the patient has Gold stage IV COPD and she is on proper bronchodilators for now went ahead and added steroids, I also added Pulmicort and Perforomist The patient is seen today February 08, 2024 in follow-up on the selective care unit. Yesterday afternoon she started to decline and required BiPAP support which she is currently on 12/6 and 28% FiO2. She has been less responsive. Her family is at the bedside. She did have a Tmax of 101.3. Currently afebrile. White count 25.8. Hemoglobin 9.3. Sodium 140. Potassium 3.8. Bicarb 21. BUN 73. Creatinine 2.69. Glucose 157. AST 111. ALT 159. Alk phos 518. Her procalcitonin was 1.20. She currently remains on DuoNeb ventilations, Pulmicort and performing scintillations, IV Solu-Medrol. She is on antibiotics in the form of Zosyn. She has D5W with 3 A of bicarb at 100 MLS per hour. Her MRCP revealed no evidence for ductal stricture, choledocholithiasis or biliary ductal dilatation. There is evidence of colelithiasis. Family had spoke with the surgeon yesterday but they were not interested in any invasive procedures. They are considering hospice and or comfort care. Objective - Vital Signs Vital signs: Vital Signs Temp 97.9 F 02/08/24 08:00 Pulse 95 02/08/24 08:27 Resp 24 02/08/24 08:00 BP 104/53 02/08/24 08:00 Pulse Ox 100 02/08/24 08:00 FiO2 28 02/08/24 08:15 Intake & Output 02/07/24 02/08/24 02/08/24 18:59 06:59 18:59 Output Total 150 100 Balance -150 -100 Output: Urine 150 100 Other: Voiding Method External Catheter External Catheter - Exam GENERAL EXAM: Obtunded, 83-year-old female, on BiPAP 12/6 and 28% FiO2, com fortable on pain medication. HEAD: Normocephalic. EYES: Normal reaction of pupils, equal size. NOSE: Clear with pink turbinates. THROAT: No erythema or exudates. NECK: No masses, no JVD. CHEST: No chest wall deformity. LUNGS: Equal air entry with no crackles, wheeze, rhonchi or dullness. CVS: S1 and S2 normal with no audible murmur, regular rhythm. ABDOMEN: No hepatosplenomegaly, normal bowel sounds, no guarding or rigidity. SPINE: No scoliosis or deformity SKIN: No rashes CENTRAL NERVOUS SYSTEM: Obtunded, tone is normal in all 4 extremities. EXTREMITIES: Dressing to the lower extremities dry and intact there is no peripheral edema. Peripheral pulses are intact. - Labs CBC & Chem 7: 02/08/24 07:40 02/08/24 07:40 Labs: Abnormal Lab Results - Last 24 Hours (Table) 02/07/24 02/07/24 02/08/24 Range/Units 08:10 20:02 07:40 WBC (3.8-10.6) k/uL RBC (3.80-5.40) m/uL Hgb (11.4-16.0) gm/dL Hct (34.0-46.0) % MCV (80.0-100.0) fL MCHC (31.0-37.0) g/dL Potassium 3.4 L (3.5-5.1) mmol/L Chloride 108 H (98-107) mmol/L Carbon Dioxide 21 L (22-30) mmol/L BUN 73 H (7-17) mg/dL Creatinine 2.69 H (0.52-1.04) mg/dL Glucose 157 H (74-99) mg/dL POC Glucose (mg/dL) 128 H (70-110) mg/dL Calcium 7.9 L (8.4-10.2) mg/dL AST 111 H (14-36) U/L ALT 159 H (4-34) U/L Alkaline Phosphatase 518 H (38-126) U/L Total Protein 4.5 L (6.3-8.2) g/dL Albumin 2.4 L (3.5-5.0) g/dL Procalcitonin 1.20 H (0.02-0.09) ng/mL 02/08/24 Range/Units 07:40 WBC 25.8 H (3.8-10.6) k/uL RBC 3.03 L (3.80-5.40) m/uL Hgb 9.3 L (11.4-16.0) gm/dL Hct 31.1 L (34.0-46.0) % MCV 102.5 H (80.0-100.0) fL MCHC 30.0 L (31.0-37.0) g/dL Potassium (3.5-5.1) mmol/L Chloride (98-107) mmol/L Carbon Dioxide (22-30) mmol/L BUN (7-17) mg/dL Creatinine (0.52-1.04) mg/dL Glucose (74-99) mg/dL POC Glucose (mg/dL) (70-110) mg/dL Calcium (8.4-10.2) mg/dL AST (14-36) U/L ALT (4-34) U/L Alkaline Phosphatase (38-126) U/L Total Protein (6.3-8.2) g/dL Albumin (3.5-5.0) g/dL Procalcitonin (0.02-0.09) ng/mL Microbiology - Last 24 Hours (Table) 02/05/24 14:16 Blood Culture - Preliminary Blood 02/05/24 14:16 Blood Culture - Preliminary Blood Assessment and Plan Assessment: Suspect abdominal sepsis, possible ascending cholangitis, on antibiotics/Zosyn, MRCP revealed no evidence for ductal stricture, choledocholithiasis or biliary ductal dilatation. There is evidence of colelithiasis. Severe COPD/emphysema Gold stage IV Chronic hypoxic respiratory failure Abnormal liver enzymes with significant transaminitis, being addressed accordingly. 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 Being addressed by wound care staff Plan: The patient was seen and evaluated MRCP, labs and medications reviewed Patient has continued to deteriorate Currently on BiPAP 07/24 and 28% FiO2 Remains on bronchodilators, steroids Remains on antibiotics Family is at the bedside No plans for surgical intervention They are considering hospice/comfort care She is a DNR/DNI CODE STATUS This patient was seen independently by the pulmonary nurse practitioner addressing pulmonary issues I have personally seen and examined the patient, performed the documentation and the assessment and plan as written. Number of minutes spent on the visit: 25.
--- NOTE | 2024-02-08 12:16 | P.PN ---
Subjective patient is seen for follow-up for acute kidney injury. family is present but at bedside. They have decided to proceed with comfort care measures. patient is not responding much. She is currently maintained on BiPAP. Objective - Vital Signs Vital signs: Vital Signs Temp 97.9 F 02/08/24 08:00 Pulse 95 02/08/24 08:27 Resp 24 02/08/24 08:00 BP 104/53 02/08/24 08:00 Pulse Ox 100 02/08/24 08:00 FiO2 28 02/08/24 11:39 Intake & Output 02/07/24 02/08/24 02/08/24 18:59 06:59 18:59 Output Total 150 100 Balance -150 -100 Output: Urine 150 100 Other: Voiding Method External Catheter External Catheter External Catheter - Exam on BiPAP. Comfortable Not much responsive. - Labs CBC & Chem 7: 02/08/24 07:40 02/08/24 07:40 Labs: Abnormal Lab Results - Last 24 Hours (Table) 02/07/24 02/07/24 02/08/24 Range/Units 08:10 20:02 07:40 WBC (3.8-10.6) k/uL RBC (3.80-5.40) m/uL Hgb (11.4-16.0) gm/dL Hct (34.0-46.0) % MCV (80.0-100.0) fL MCHC (31.0-37.0) g/dL Potassium 3.4 L (3.5-5.1) mmol/L Chloride 108 H (98-107) mmol/L Carbon Dioxide 21 L (22-30) mmol/L BUN 73 H (7-17) mg/dL Creatinine 2.69 H (0.52-1.04) mg/dL Glucose 157 H (74-99) mg/dL POC Glucose (mg/dL) 128 H (70-110) mg/dL Calcium 7.9 L (8.4-10.2) mg/dL AST 111 H (14-36) U/L ALT 159 H (4-34) U/L Alkaline Phosphatase 518 H (38-126) U/L Total Protein 4.5 L (6.3-8.2) g/dL Albumin 2.4 L (3.5-5.0) g/dL Procalcitonin 1.20 H (0.02-0.09) ng/mL 02/08/24 Range/Units 07:40 WBC 25.8 H (3.8-10.6) k/uL RBC 3.03 L (3.80-5.40) m/uL Hgb 9.3 L (11.4-16.0) gm/dL Hct 31.1 L (34.0-46.0) % MCV 102.5 H (80.0-100.0) fL MCHC 30.0 L (31.0-37.0) g/dL Potassium (3.5-5.1) mmol/L Chloride (98-107) mmol/L Carbon Dioxide (22-30) mmol/L BUN (7-17) mg/dL Creatinine (0.52-1.04) mg/dL Glucose (74-99) mg/dL POC Glucose (mg/dL) (70-110) mg/dL Calcium (8.4-10.2) mg/dL AST (14-36) U/L ALT (4-34) U/L Alkaline Phosphatase (38-126) U/L Total Protein (6.3-8.2) g/dL Albumin (3.5-5.0) g/dL Procalcitonin (0.02-0.09) ng/mL Microbiology - Last 24 Hours (Table) 02/05/24 14:16 Blood Culture - Preliminary Blood 02/05/24 14:16 Blood Culture - Preliminary Blood Assessment and Plan Assessment: 1. Acute kidney injury secondary to ATN secondary to hypovolemia further worsen with the use of Lasix and losartan. Creatinine 4.11 and improved to 2.69. Base line creatinine 0.7-0.8 from December 2023. No hydronephrosis noted on kidney ultrasound. 2. Mild hyperkalemia. Hemolyzed sample. Patient was on losartan outpatient. Improved. 3. Hypotension related to hypovolemia and antihypertensives. 4. Gallstones. Surgery following. 5. Metabolic acidosis secondary to acute kidney injury and IV fluids. Plan: continue with bicarb drip. Can DC if change to comfort care measures. We will sign off
--- NOTE | 2024-02-08 15:05 | P.PN ---
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 She was transferred to [facility] 12/30/2023 after being hospitalized and treated at [facility] on December 04, 2023 where patient developed to have droopy face and lack of vision found to have thrombus stroke affecting the right [place]RI[place] MULTIP[place] SPINDLE underwent mechanical thrombectomy and shortly after developed to have hemorrhagic transformation in the right [place] SPIND[place] territory with edema and mass effect was treated for over 2 weeks and finally was sent to rehab at [facility] on 12/30/2023 will continue to have significant lack of vision along with weakness in the left side with quite a bit debility. Patient is known to have advanced COPD on home O2 for long time steroid-depende nt and updraft treatment on more regular basis. Through the last few weeks developed to have significant decline physically and mentally developed in the last 5 days and to quit eating completely because of the claim that she is having worsening symptoms with nausea and abdominal fullness and discomfort which she did did not notify anybody about it until early or urgent blood work was done and showed significant acute kidney injury acute kidney failure with creatinine of 4.11 bun of 81 significant abnormal liver function test with alk phos 750 ALT 307 AST 214 total bili at 1.6 with lipase 257. Her white blood cell was 24,000 as well she was started on Zosyn and was diagnosed with sepsis possibly related to ascending cholangitis also acute kidney injury acute kidney failure with UTI, elevated troponin possible type II non-STEMI. Patient also has been complaining of severe increased pain and discomfort in the left leg area over small ulcerated area of the leg from not a clear etiology most likely vascular occlusive disease has been treated with topical care with mom with become quite painful lately. Family were notified with patient transfer early before she left [facility] they are aware of her condition at the time. 02/06/2024: Patient pain and discomfort is much better, with hydration kidney function has not improved much, also white blood cells still at 30,000, troponin at 0.177. Was seen and evaluated by general surgery who seen patient for possibly ga llstone from her ultrasound but decided to do HIDA scan to define if she had any real function loss or significant inflammation in the gallbladder might require urgent surgery. Cardiology team patient for her elevated troponin no conclusion was that at this point, remain on Zosyn for her sepsis which is most likely urinary tract infection continue Zosyn for now till final culture is back. Nephrology be seen patient in consultation for the acute kidney injury and ATN despite not much improvement yet the kidney function will continue hydration ultrasound continue supportive care with IV fluid. 02/07/2024: Patient continues to decline kidney function has been little bit better but continue to require significant amount of fluid for hydration to keep her blood pressure above 100 systolic. She is scheduled for MRCP this morning review all labs and testing with the family including the 2 daughter and they understand the seriousness of her condition and currently with abnormal liver function test mildly elevated troponin with a significantly high white blood cell diets out of coming from stroke recently has not helped so far. Still there is no source of infection currently with only exception if patient had mildly chance ascending cholangitis from the existing stone in the gallbladder and if one of the stone stuck in the common duct earlier before passing causing more problem with ascending cholangitis that will mostly cause gram-negative bacteremia which his blood culture so far is negative. Will continue supportive care for now continue hydration try to reverse the acute tubular necrosis. Patient is not making much urine which is another bad prognosis sign currently. She is resting on BiPAP restless turning from 1 side to another not comfortable. Her MRCP is still showing gallstones but no obstruction no mass in the pancre atic area no urgent need for any surgical repair patient might have had gallstone passed in the common duct created ascending cholangitis and she already passed it. Decline kidney function last 48 hours today has been better so far creatinine is down to 2.69 with GFR up to 16. The clinical picture is extremely bad at this point patient is wearing BiPAP all the time she looks more comfortable after long discussion with the family agree on pain management and control with easing up into possible hospice or comfort care before the end of the weekend for now decided to do morphine and Ativan to keep patient comfortable and keep her from having restlessness she is going to throw. Family also do not I do any more invasive testing or procedure and if kidney function decline more no dialysis will be done. Also she is not to be intubated or resuscitated with CODE STATUS change DO NOT RESUSCITATE. Remain on IV antibiotic with Zosyn cultures still negative at this point. Chain of event most likely that patient had passed gallstone into the common duct created ascending cholangitis becomes septic that cause her blood pressure to be low cause more pain so she becomes extremely sick not eating and drinking that create kidney function to decline and eventually cause her non-ST OH or type II OH. Full explanation to family with going on and that the extreme high mortality patient has at this point they understand and like to proceed with comfort care and management more than aggressive care. REVIEW OF SYSTEMS: CONSTITUTIONAL: Elderly is quite bit restless mild respiratory distress. EYES: No icterus sclerae, no conjunctivitis. EARS, NOSE, MOUTH, THROAT, and FACE: No sore throat, lymphadenopathy, carotid bruits or deformity. RESPIRATORY: Decreased breath sound bilaterally with fine rhonchi slight cough and wheezes. CARDIOVASCULAR: Positive PND orthopnea palpitation slight edema. GASTROINTESTINAL: Significant abdominal distention with nausea vomiting no diarrhea or constipation but slight but bloating sensation discomfort. GENITOURINARY: Negative for Hematuria or UTI, no kidney stones. Significant decreased urine output with change in color. INTEGUMENT/BREAST: Negative for any muscular injury with mild osteoarthritis.. HEMATOLOGIC/LYMPHATIC: Negative for bleed or purpura. MUSCULOSKELTAL: Negative for Myalgia or arthralgia. Small ulcerated area on the left leg. NEURLOGICAL: No LOC, Sz or syncope, blurred vision dizziness or abnormality.. BEHAVIORAL/PSYCH: Negative. ENDOCRINE: Negative. PHYSICAL EXAMINATION: General Appearance: Alert, cooperative, in mild respiratory distress Neck HEENT: Supple, no lymphadenopathy, no thyroid enlargement, no carotid bruits. Lungs: Decreased breath sound bilaterally with rhonchi positive mild crackles in the bases positive mild expiratory wheezes. Chest Wall: Decreased expansion with deep inspiration no tenderness and no deformity was found on exam, no costochondral pain or discomfort. Heart: Irregular rate and rhythm, S1, S2 positive S3 positive systolic murmur. Back: Symmetric, no curvature, ROM normal, no CVA tenderness. Abdomen: Soft positive bowel sounds slight tenderness and discomfort in the right upper quadrant area no rebound no rigidity. Extremities: Extremities normal, atraumatic, no cyanosis or edema. Small ulcerated area quite bit painful in the left leg. Pulses: 2+ and symmetric. Skin: Skin color, texture, tugor normal, no rashes or lesions. Neurologic: Alert oriented x3 cranial nerves II through XII intact, no motor deficit, no abnormal balance or gait. ASSESSMENT AND PLAN: _Sepsis: Secondary to ascending cholangitis and possible UTI, will continue to be on Zosyn along with IV fluid and hydration. Culture remain negative at this point. _Acute on chronic respiratory failure: Secondary to end-stage advanced COPD with her hypertension and advanced sepsis because more respiratory failure at this point continue to treat underlying disease remain on BiPAP and more on comfort management. _Acute kidney injury secondary to severe acute tubular necrosis with severe dehydration not eating or drinking for the last few days significantly elevated BUN/creatinine kidney function has improved slightly today continue hydration with 150 cc of IV fluid normal saline and still have Wooten catheter to watch u rine output. _Abdominal pain with intractable nausea and severe symptoms this is so far more acute on subacute and secondary to cholecystitis and cholelithiasis continue supportive care patient is not a surgical candidate currently. _Acute cholecystitis with cholelithiasis: He is going for an MRCP to make sure is no other finding consistent with worsening problem in the [place] pancreatic area. _Severe leukocytosis: Combination of sepsis along with Steroid reaction continue to watch symptoms closely patient still on IV antibiotics. _Elevated troponin with possible type II non-STEMI: Still waiting for conclusion of cardiology. _Advanced COPD: Has been seeing pulmonary remain on Ventolin Trelegy along with albuterol treatment [id number] with smaller dose of steroid. _Arrhythmia: With no sign of A-fib with RVR, review EKG Holter monitor looks perfectly fine at this point we will continue to watch for any tachycardia or arrhythmia. _UTI abnormal Urine test currently with the elevated white blood cell she is on Zosyn currently waiting for final culture. 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 _Severe gastritis and gastroesophageal reflux syndrome: Will add pantoprazole 40 mg a day watch for further symptomatic where EGD eventually. _Nonhealing small ulcer on the left leg seen by wound clinic continue topical care. CODE STATUS: DO NOT RESUSCITATE Discussion: After discussing with family patient has medical problems expectation agreed to do comfort care management I start addressing possibility of hospice before the weekend is over we will give patient little bit more time through Saturday and Saturday if no improvement and continued to decline family are willing to consider the idea of hospice on Saturday evening or Saturday morning. Objective - Vital Signs Vital signs: Vital Signs Temp 100.3 F H 02/08/24 04:00 Pulse 83 02/08/24 04:00 Resp 23 02/08/24 04:00 BP 110/64 02/08/24 04:00 Pulse Ox 98 02/08/24 04:00 FiO2 28 02/08/24 04:00 Intake & Output 02/07/24 02/08/24 02/08/24 18:59 06:59 18:59 Output Total 150 100 Balance -150 -100 Output: Urine 150 100 Other: Voiding Method External Catheter External Catheter - Labs CBC & Chem 7: 02/08/24 07:40 02/08/24 07:40 Labs: Abnormal Lab Results - Last 24 Hours (Table) 02/07/24 02/07/24 02/07/24 Range/Units 08:10 08:10 08:10 WBC 27.9 H (3.8-10.6) k/uL RBC 3.30 L (3.80-5.40) m/uL Hgb 10.7 L (11.4-16.0) gm/dL MCV 105.0 H (80.0-100.0) fL MCHC 30.8 L (31.0-37.0) g/dL Chloride 112 H (98-107) mmol/L Carbon Dioxide 16 L (22-30) mmol/L BUN 69 H (7-17) mg/dL Creatinine 3.07 H (0.52-1.04) mg/dL Glucose 52 L (74-99) mg/dL POC Glucose (mg/dL) (70-110) mg/dL Calcium 8.0 L (8.4-10.2) mg/dL AST 117 H (14-36) U/L ALT 174 H (4-34) U/L Alkaline Phosphatase 529 H (38-126) U/L Total Protein 4.7 L (6.3-8.2) g/dL Albumin 2.5 L (3.5-5.0) g/dL Procalcitonin 1.20 H (0.02-0.09) ng/mL 02/07/24 Range/Units 20:02 WBC (3.8-10.6) k/uL RBC (3.80-5.40) m/uL Hgb (11.4-16.0) gm/dL MCV (80.0-100.0) fL MCHC (31.0-37.0) g/dL Chloride (98-107) mmol/L Carbon Dioxide (22-30) mmol/L BUN (7-17) mg/dL Creatinine (0.52-1.04) mg/dL Glucose (74-99) mg/dL POC Glucose (mg/dL) 128 H (70-110) mg/dL Calcium (8.4-10.2) mg/dL AST (14-36) U/L ALT (4-34) U/L Alkaline Phosphatase (38-126) U/L Total Protein (6.3-8.2) g/dL Albumin (3.5-5.0) g/dL Procalcitonin (0.02-0.09) ng/mL Microbiology - Last 24 Hours (Table) 02/05/24 14:16 Blood Culture - Preliminary Blood 02/05/24 14:16 Blood Culture - Preliminary Blood
[2024-02-08] MEDS: LORazepam 2 MG/ML INJ IV PRN (16:07)
[2024-02-09] MEDS: HYDROmorphone 1 MG/ML 1 ML SYRINGE IVP PRN (08:18)
[2024-02-09 08:25] VITALS: TEMP 97.7
--- NOTE | 2024-02-09 10:43 | P.PN ---
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 She was transferred to [facility] 12/30/2023 after being hospitalized and treated at [facility] on December 04, 2023 where patient developed to have droopy face and lack of vision found to have thrombus stroke affecting the right [employer] underwent mechanical thrombectomy and shortly after developed to have hemorrhagic transformation in the right [employer] territory with edema and mass effect was treated for over 2 weeks and finally was sent to rehab at [facility] on 12/30/2023 will continue to have significant lack of vision along with weakness in the left side with quite a bit debility. Patient is known to have advanced COPD on home O2 for long time steroid-depende nt and updraft treatment on more regular basis. Through the last few weeks developed to have significant decline physically and mentally developed in the last 5 days and to quit eating completely because of the claim that she is having worsening symptoms with nausea and abdominal fullness and discomfort which she did did not notify anybody about it until early or urgent blood work was done and showed significant acute kidney injury acute kidney failure with creatinine of 4.11 bun of 81 significant abnormal liver function test with alk phos 750 ALT 307 AST 214 total bili at 1.6 with lipase 257. Her white blood cell was 24,000 as well she was started on Zosyn and was diagnosed with sepsis possibly related to ascending cholangitis also acute kidney injury acute kidney failure with UTI, elevated troponin possible type II non-STEMI. Patient also has been complaining of severe increased pain and discomfort in the left leg area over small ulcerated area of the leg from not a clear etiology most likely vascular occlusive disease has been treated with topical care with mom with become quite painful lately. Family were notified with patient transfer early before she left [facility] they are aware of her condition at the time. 02/06/2024: Patient pain and discomfort is much better, with hydration kidney function has not improved much, also white blood cells still at 30,000, troponin at 0.177. Was seen and evaluated by general surgery who seen patient for possibly ga llstone from her ultrasound but decided to do HIDA scan to define if she had any real function loss or significant inflammation in the gallbladder might require urgent surgery. Cardiology team patient for her elevated troponin no conclusion was that at this point, remain on Zosyn for her sepsis which is most likely urinary tract infection continue Zosyn for now till final culture is back. Nephrology be seen patient in consultation for the acute kidney injury and ATN despite not much improvement yet the kidney function will continue hydration ultrasound continue supportive care with IV fluid. 02/07/2024: Patient continues to decline kidney function has been little bit better but continue to require significant amount of fluid for hydration to keep her blood pressure above 100 systolic. She is scheduled for MRCP this morning review all labs and testing with the family including the 2 daughter and they understand the seriousness of her condition and currently with abnormal liver function test mildly elevated troponin with a significantly high white blood cell diets out of coming from stroke recently has not helped so far. Still there is no source of infection currently with only exception if patient had mildly chance ascending cholangitis from the existing stone in the gallbladder and if one of the stone stuck in the common duct earlier before passing causing more problem with ascending cholangitis that will mostly cause gram-negative bacteremia which his blood culture so far is negative. Will continue supportive care for now continue hydration try to reverse the acute tubular necrosis. Patient is not making much urine which is another bad prognosis sign currently. 02/08/2024: She is resting on BiPAP restless turning from 1 side to another not comfortable. Her MRCP is still showing gallstones but no obstruction no mass in the pancreatic area no urgent need for any surgical repair patient might have had gallstone passed in the common duct created ascending cholangitis and she already passed it. Decline kidney function last 48 hours today has been better so far creatinine is down to 2.69 with GFR up to 16. The clinical picture is extremely bad at this point patient is wearing BiPAP all the time she looks more comfortable after long discussion with the family agree on pain management and control with easing up into possible hospice or comfort care before the end of the weekend for now decided to do morphine and Ativan to keep patient comfortable and keep her from having restlessness she is going to throw. Family also do not I do any more invasive testing or procedure and if kidney function decline more no dialysis will be done. Also she is not to be intubated or resuscitated with CODE STATUS change DO NOT RESUSCITATE. Remain on IV antibiotic with Zosyn cultures still negative at this point. Chain of event most likely that patient had passed gallstone into the common duct created ascending cholangitis becomes septic that cause her blood pressure to be low cause more pain so she becomes extremely sick not eating and drinking that create kidney function to decline and eventually cause her non-ST MT or type II MT. Full explanation to family with going on and that the extreme high mortality patient has at this point they understand and like to proceed with comfort care and management more than aggressive care. 02/09/2024: Accompanied with her family in the room the son and the daughter patient is on BiPAP dozing off she is a semi-, currently resting comfortably still on Dilaudid IV and Ativan IV. Had long discussion with the family again about possibility of doing hospice they are going to talk to their siblings and get back with us the patient at this stage quite advanced there is a big possibility he might not survive the next 48 hours based on not being able to move her to any place at this point might do hospice in the room with [facility]. If agreeable will start morphine drip and take her off BiPAP and put her on higher flow oxygen via nasal cannula only. REVIEW OF SYSTEMS: CONSTITUTIONAL: Elderly is quite bit restless mild respiratory distress. EYES: No icterus sclerae, no conjunctivitis. EARS, NOSE, MOUTH, THROAT, and FACE: No sore throat, lymphadenopathy, carotid bruits or deformity. RESPIRATORY: Decreased breath sound bilaterally with fine rhonchi slight cough and wheezes. CARDIOVASCULAR: Positive PND orthopnea palpitation slight edema. GASTROINTESTINAL: Significant abdominal distention with nausea vomiting no diarrhea or constipation but slight but bloating sensation discomfort. GENITOURINARY: Negative for Hematuria or UTI, no kidney stones. Significant decreased urine output with change in color. INTEGUMENT/BREAST: Negative for any muscular injury with mild osteoarthritis.. HEMATOLOGIC/LYMPHATIC: Negative for bleed or purpura. MUSCULOSKELTAL: Negative for Myalgia or arthralgia. Small ulcerated area on the left leg. NEURLOGICAL: No LOC, Sz or syncope, blurred vision dizziness or abnormality.. BEHAVIORAL/PSYCH: Negative. ENDOCRINE: Negative. PHYSICAL EXAMINATION: General Appearance: Alert, cooperative, in mild respiratory distress Neck HEENT: Supple, no lymphadenopathy, no thyroid enlargement, no carotid bruits. Lungs: Decreased breath sound bilaterally with rhonchi positive mild crackles in the bases positive mild expiratory wheezes. Chest Wall: Decreased expansion with deep inspiration no tenderness and no deformity was found on exam, no costochondral pain or discomfort. Heart: Irregular rate and rhythm, S1, S2 positive S3 positive systolic murmur. Back: Symmetric, no curvature, ROM normal, no CVA tenderness. Abdomen: Soft positive bowel sounds slight tenderness and discomfort in the right upper quadrant area no rebound no rigidity. Extremities: Extremities normal, atraumatic, no cyanosis or edema. Small ulcerated area quite bit painful in the left leg. Pulses: 2+ and symmetric. Skin: Skin color, texture, tugor normal, no rashes or lesions. Neurologic: Alert oriented x3 cranial nerves II through XII intact, no motor deficit, no abnormal balance or gait. ASSESSMENT AND PLAN: _Sepsis: Secondary to ascending cholangitis and possible UTI, she still on antibiotic currently but if we decide to do hospice. Antibiotic. _Acute on chronic respiratory failure: Secondary to end-stage advanced COPD become quite worsening with sepsis and stroke, continue BiPAP for now continue high flow O2 we decided to do hospice will wean her off BiPAP.. _Acute kidney injury secondary to severe acute tubular necrosis with severe dehydration kidney function had improved slightly yesterday and currently being comfort care only when not doing any further blood drawn. _Abdominal pain with intractable nausea and severe symptoms this is so far more acute on subacute and secondary to cholecystitis and cholelithiasis patient is a semi-, which is not having any further nausea or vomiting. _Acute cholecystitis with cholelithiasis: He is going for an MRCP to make sure is no other finding consistent with worsening problem in the [place] pancreatic area. _Severe leukocytosis: Combination of sepsis along with Steroid reaction continue to watch symptoms closely patient still on IV antibiotics. _Elevated troponin with possible type II non-STEMI: Still waiting for conclusion of cardiology. _Advanced COPD: Not able to do her regular inhaler continue BiPAP and continue her nebulizer. _Arrhythmia: With no sign of A-fib with RVR, review EKG Holter monitor looks perfectly fine at this point we will continue to watch for any tachycardia or arrhythmia. _UTI abnormal Urine test currently with the elevated white blood cell she is on Zosyn currently waiting for final culture. 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 _Severe gastritis and gastroesophageal reflux syndrome: Will add pantoprazole 40 mg a day watch for further symptomatic where EGD eventually. _Nonhealing small ulcer on the left leg seen by wound clinic continue topical care. CODE STATUS: DO NOT RESUSCITATE Discussion: Long discussion with the family again might do hospice care with [facility] patient is in summary, currently we will wean her off BiPAP continue morphine drip for comfort care and keep on high flow O2. Objective - Vital Signs Vital signs: Vital Signs Temp 97.7 F 02/09/24 08:00 Pulse 71 02/09/24 08:00 Resp 17 02/09/24 08:00 BP 106/65 02/09/24 04:00 Pulse Ox 96 02/09/24 08:00 FiO2 28 02/09/24 08:00 Intake & Output 02/08/24 02/09/24 02/09/24 18:59 06:59 18:59 Intake Total 200 Output Total 200 Balance 200 -200 Intake: Intake, IV Titration 200 Amount Dextrose 5% in Water 1, 100 000 ml @ 100 mls/hr IV . [id number] MANDY with Sodium Bicarb (1 Meq/ml) 150 ml Rx#:[id number] Piperacillin-Tazobactam 3 100 .375 gm In Sodium Chloride 0.9% 100 ml @ 25 mls/hr IVPB Q12H MANDY Rx# :[id number] Oral 0 Output: Urine 200 Other: Voiding Method External Catheter Indwelling Catheter - Labs CBC & Chem 7: 02/08/24 07:40 02/08/24 07:40 Labs: Abnormal Lab Results - Last 24 Hours (Table) 02/07/24 Range/Units 08:10 Cortisol 23.7 H (3.1-22.4) UG/DL Microbiology - Last 24 Hours (Table) 02/05/24 14:16 Blood Culture - Preliminary Blood
[2024-02-09 16:46] VITALS: BP 114/65; PULSE 74; RESP 16
--- NOTE | 2024-02-12 06:20 | P.DS ---
Providers Date of admission: 02/05/24 14:44 Expected date of discharge: 02/09/24 Attending physician: Hayden Lizarraga Consults: 02/05/24 14:42 Consult Physician Routine Consulting Provider: Margie Aguilera Consult Reason/Comments: NARAYAN Do you want consulting provider notified?: Yes 02/05/24 14:44 Consult Physician Routine Consulting Provider: Dipika Cherry Consult Reason/Comments: Hyperbilirubinemia, transaminitis Do you want consulting provider notified?: Yes 02/06/24 06:02 Consult Physician Routine Consulting Provider: Azael Brian Consult Reason/Comments: elevated Trop and A Fib Do you want consulting provider notified?: Yes 02/07/24 07:54 Consult Physician Routine Consulting Provider: Narcisa Childs Consult Reason/Comments: COPD Do you want consulting provider notified?: Yes Primary care physician: [facility] Course: HISTORY OF PRESENT ILLNESS: 84-year-old with active medical history of Cerebral infarction affecting the left side original date was December 04, 2023, advanced COPD, hypertension, hyperlipidemia, severe peripheral vascular disease, chronic kidney disease stage IIIb, 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 She was transferred to [facility] 12/30/2023 after being hospitalized and treated at [facility] on December 04, 2023 where patient developed to have droopy face and lack of vision found to have thrombus stroke affecting the right IMPROVEMENT NURSE underwent mechanical thrombectomy and shortly after developed to have hemorrhagic transformation in the right IMPROVEMENT NURSE territory with edema and mass effect was treated for over 2 weeks and finally was sent to rehab at [facility] on 12/30/2023 will continue to have significant lack of vision along with weakness in the left side with quite a bit debility. Patient is known to have advanced COPD on home O2 for long time steroid- dependent and updraft treatment on more regular basis. Through the last few weeks developed to have significant decline physically and mentally developed in the last 5 days and to quit eating completely because of the claim that she is h aving worsening symptoms with nausea and abdominal fullness and discomfort which she did did not notify anybody about it until early or urgent blood work was done and showed significant acute kidney injury acute kidney failure with creatinine of 4.11 bun of 81 significant abnormal liver function test with alk phos 750 ALT 307 AST 214 total bili at 1.6 with lipase 257. Her white blood cell was 24,000 as well she was started on Zosyn and was diagnosed with sepsis possibly related to ascending cholangitis also acute kidney injury acute kidney failure with UTI, elevated troponin possible type II non-STEMI. Patient also has been complaining of severe increased pain and discomfort in the left leg area over small ulcerated area of the leg from not a clear etiology most likely vascular occlusive disease has been treated with topical care with mom with become quite painful lately. Family were notified with patient transfer early before she left [facility] they are aware of her condition at the time. 02/06/2024: Patient pain and discomfort is much better, with hydration kidney function has not improved much, also white blood cells still at 30,000, troponin at 0.177. Was seen and evaluated by general surgery who seen patient for possibly gallstone from her ultrasound but decided to do HIDA scan to define if she had any real function loss or significant inflammation in the gallbladder might require urgent surgery. Cardiology team patient for her elevated troponin no conclusion was that at this point, remain on Zosyn for her sepsis which is most likely urinary tract infection continue Zosyn for now till final culture is back. Nephrology be seen patient in consultation for the acute kidney injury and ATN despite not much improvement yet the kidney function will continue hydration ultrasound continue supportive care with IV fluid. 02/07/2024: Patient continues to decline kidney function has been little bit better but continue to require significant amount of fluid for hydration to keep her blood pressure above 100 systolic. She is scheduled for MRCP this morning review all labs and testing with the family including the 2 daughter and they understand the seriousness of her condition and currently with abnormal liver function test mildly elevated troponin with a significantly high white blood cell diets out of coming from stroke recently has not helped so far. Still there is no source of infection currently with only exception if patient had mildly chance ascending cholangitis from the existing stone in the gallbladder and if one of the stone stuck in the common duct earlier before passing causing more problem with ascending cholangitis that will mostly cause gram-negative bacteremia which his blood culture so far is negative. Will continue supportive care for now continue hydration try to reverse the acute tubular necrosis. Patient is not making much urine which is another bad prognosis sign currently. 02/08/2024: She is resting on BiPAP restless turning from 1 side to another not comfortable. Her MRCP is still showing gallstones but no obstruction no mass in the pancreatic area no urgent need for any surgical repair patient might have had gallstone passed in the common duct created ascending cholangitis and she already passed it. Decline kidney function last 48 hours today has been better so far creatinine is down to 2.69 with GFR up to 16. The clinical picture is extremely bad at this point patient is wearing BiPAP all the time she looks more comfortable after long discussion with the family agree on pain management and control with easing up into possible hospice or comfort care before the end of the weekend for now decided to do morphine and Ativan to keep patient comfortable and keep her from having restlessness she is going to throw. Family also do not I do any more invasive testing or procedure and if kidney function decline more no dialysis will be done. Also she is not to be intubated or resuscitated with CODE STATUS change DO NOT RESUSCITATE. Remain on IV antibiotic with Zosyn cultures still negative at this point. Chain of event most likely that patient had passed gallstone into the common duct created ascending cholangitis becomes septic that cause her blood pressure to be low cause more pain so she becomes extremely sick not eating and drinking that create kidney function to decline and eventually cause her non-ST MN or type II MN. Full explanation to family with going on and that the extreme high mortality patient has at this point they understand and like to proceed with comfort care and management more than aggressive care. 02/09/2024: Accompanied with her family in the room the son and the daughter patient is on BiPAP dozing off she is a semi-, currently resting comfortably still on Dilaudid IV and Ativan IV. Had long discussion with the family again about possibility of doing hospice they are going to talk to their siblings and get back with us the patient at this stage quite advanced there is a big possibility he might not survive the next 48 hours based on not being able to move her to any place at this point might do hospice in the room with [facility]. If agreeable will start morphine drip and take her off BiPAP and put her on higher flow oxygen via nasal cannula only. REVIEW OF SYSTEMS: CONSTITUTIONAL: Elderly is quite bit restless mild respiratory distress. EYES: No icterus sclerae, no conjunctivitis. EARS, NOSE, MOUTH, THROAT, and FACE: No sore throat, lymphadenopathy, carotid bruits or deformity. RESPIRATORY: Decreased breath sound bilaterally with fine rhonchi slight cough and wheezes. CARDIOVASCULAR: Positive PND orthopnea palpitation slight edema. GASTROINTESTINAL: Significant abdominal distention with nausea vomiting no diarrhea or constipation but slight but bloating sensation discomfort. GENITOURINARY: Negative for Hematuria or UTI, no kidney stones. Significant decreased urine output with change in color. INTEGUMENT/BREAST: Negative for any muscular injury with mild osteoarthritis.. HEMATOLOGIC/LYMPHATIC: Negative for bleed or purpura. MUSCULOSKELTAL: Negative for Myalgia or arthralgia. Small ulcerated area on the left leg. NEURLOGICAL: No LOC, Sz or syncope, blurred vision dizziness or abnormality.. BEHAVIORAL/PSYCH: Negative. ENDOCRINE: Negative. PHYSICAL EXAMINATION: General Appearance: Alert, cooperative, in mild respiratory distress Neck HEENT: Supple, no lymphadenopathy, no thyroid enlargement, no carotid bruits. Lungs: Decreased breath sound bilaterally with rhonchi positive mild crackles in the bases positive mild expiratory wheezes. Chest Wall: Decreased expansion with deep inspiration no tenderness and no deformity was found on exam, no costochondral pain or discomfort. Heart: Irregular rate and rhythm, S1, S2 positive S3 positive systolic murmur. Back: Symmetric, no curvature, ROM normal, no CVA tenderness. Abdomen: Soft positive bowel sounds slight tenderness and discomfort in the right upper quadrant area no rebound no rigidity. Extremities: Extremities normal, atraumatic, no cyanosis or edema. Small ulcerated area quite bit painful in the left leg. Pulses: 2+ and symmetric. Skin: Skin color, texture, tugor normal, no rashes or lesions. Neurologic: Alert oriented x3 cranial nerves II through XII intact, no motor deficit, no abnormal balance or gait. ASSESSMENT AND PLAN: _Sepsis: Secondary to ascending cholangitis and possible UTI, she still on antib iotic currently but if we decide to do hospice. Antibiotic. _Acute on chronic respiratory failure: Secondary to end-stage advanced COPD become quite worsening with sepsis and stroke, continue BiPAP for now continue high flow O2 we decided to do hospice will wean her off BiPAP.. _Acute kidney injury secondary to severe acute tubular necrosis with severe dehydration kidney function had improved slightly yesterday and currently being comfort care only when not doing any further blood drawn. _Abdominal pain with intractable nausea and severe symptoms this is so far more acute on subacute and secondary to cholecystitis and cholelithiasis patient is a semi-, which is not having any further nausea or vomiting. _Acute cholecystitis with cholelithiasis: He is going for an MRCP to make sure is no other finding consistent with worsening problem in the [place] pancreatic area. _Severe leukocytosis: Combination of sepsis along with Steroid reaction continue to watch symptoms closely patient still on IV antibiotics. _Elevated troponin with possible type II non-STEMI: Still waiting for conclusion of cardiology. _Advanced COPD: Not able to do her regular inhaler continue BiPAP and continue her nebulizer. _Arrhythmia: With no sign of A-fib with RVR, review EKG Holter monitor looks perfectly fine at this point we will continue to watch for any tachycardia or arrhythmia. _UTI abnormal Urine test currently with the elevated white blood cell she is on Zosyn currently waiting for final culture. 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 _Severe gastritis and gastroesophageal reflux syndrome: Will add pantoprazole 40 mg a day watch for further symptomatic where EGD eventually. _Nonhealing small ulcer on the left leg seen by wound clinic continue topical care. CODE STATUS: DO NOT RESUSCITATE Discussion: Long discussion with the family again might do hospice care with [facility] patient is in summary, currently we will wean her off BiPAP continue morphine drip for comfort care and keep on high flow O2. Hospital course: The patient was admitted to the hospital on 02/05/2024 as a transfer from [facility] she has multiple medical problem has been [facility] recovering from stroke created hemorrhagic transformation in the right IMPROVEMENT NURSE territory with edema and mass effect 2 weeks earlier. Patient has been [facility] between 12/30/2023 till the admission date. The patient is known to have advanced COPD on home O2 steroid-dependent 5 days prior to admission to the hospital patient started eating and drinking completely become extremely weak nauseous not able to tolerate much. Talking to the family and agreed to transfer patient to the hospital was seen and evaluated found to have acute kidney failure with creatinine 4.11 BUN of 81 significant elevated liver function test with alk phos 750 ALT 307 with AST of 214 total bili of 1.6 and lipase of 257. White blood cell was 24,000 patient was started on Zosyn for initial diagnosis of sepsis with the blood pressure being low also had mild elevated troponin and was diagnosed as possible type II non-ST MN. Also found to have UTI. General surgery was involved and with her current management and picture on her ultrasound of the abdomen consistent with possible gallstone with no acute cholecystitis HIDA scan was ordered which was performed the following day and came back with no acute cholecystitis but mild cholelithiasis. At this stage was arranged to have an MRCP which came back again with cholecystitis with no cholelithiasis no mass in the biliary tree or the pancreatic area. In the meanwhile patient was seen nephrology continue hydration her kidney function started improving some. Patient continued to be septic with source of sepsis was most likely from ascending cholangitis related to gallstone in the common duct causing more injury and balance of decline that is how she become more sick to her stomach with hypotension and sepsis and worsening kidney function. Despite the kidney function has improved patient responded to current management was not that good and continue to be almost BiPAP dependent and required the discomfort. Long discussion with the family final conclusion is to do comfort care and not to worry about any other finding with lab or any intervention. On 02/09/2024 the decision was to involve hospice and to start aggressive comfort care management to hospice. Patient was transferred to hospice on 02/09/2024 started morphine drip initially and Ativan IV [id number] to keep patient comfortable and at that stage decided to take her off the BiPAP and keep her on high flow Ventimask only. Time spent on discharging the patient was over 35 minutes Patient Condition at Discharge: Stable Plan - Discharge Summary Discharge Rx Participant: No New Discharge Prescriptions: No Action Ondansetron [Zofran] 4 mg PO Q6H PRN PRN Reason: Nausea And Vomiting Magnesium Hydroxide [Milk of Magnesia Concentrate] 7,200 mg PO Q48H PRN PRN Reason: Constipation Polyvinyl Alcohol/Povidone [[place] Eye Drop] 1 applic BOTH EYES BID PRN PRN Reason: Dry Eye(S) Ipratropium-Albuterol Nebulize [Duoneb 0.5 mg-3 mg/3 ml Soln] 3 ml INHALATION RT-Q4H PRN PRN Reason: COPD Na Phos,M-B/Na Phos,Di-Ba [Fleet Adult] 133 ml RECTAL DAILY PRN PRN Reason: Constipation Cetirizine HCl [Zyrtec] 10 mg PO HS@2100 Budesonide [Pulmicort] 1 mg INHALATION RT-BID@0800,2100 Sennosides [Senokot] 8.6 mg PO BID@0800,1700 Lidocaine External Gel 4% 1 applic TOPICAL DAILY@0800 Pantoprazole Sodium [Protonix] See Taper PO DIRECTED Potassium Chloride ER [K-Dur 20] 20 meq PO DAILY@1700 Atorvastatin [Lipitor] 80 mg PO HS bisacodyL [Dulcolax] 10 mg RECTAL DAILY PRN PRN Reason: Constipation Acetaminophen [Tylenol] 650 mg PO Q4H PRN PRN Reason: Fever Ipratropium-Albuterol Nebulize [Duoneb 0.5 mg-3 mg/3 ml Soln] 3 ml INHALATION RT-QID@00,06,12,18 Aspirin [[place] Aspirin EC] 81 mg PO DAILY@0800 Ensure Clear 120 ml PO TID@0800,1200,1700 Losartan [Cozaar] 25 mg PO DAILY@0800 Furosemide [Lasix] 20 mg PO DAILY@0800 Saline Nasal Gel [[place] Nasal Gel] 1 applic EA NOSTRIL BID Fluticasone Nasal [place] [Flonase Nasal [place]] 2 spray EA NOSTRIL HS@2129 Discharge Medication List Acetaminophen [Tylenol] 650 mg PO Q4H PRN 02/05/24 [History] Aspirin [[place] Aspirin EC] 81 mg PO DAILY@0800 02/05/24 [History] Atorvastatin [Lipitor] 80 mg PO HS 02/05/24 [History] Budesonide [Pulmicort] 1 mg INHALATION RT-BID@0800,2100 02/05/24 [History] Cetirizine HCl [Zyrtec] 10 mg PO HS@2100 02/05/24 [History] Ensure Clear 120 ml PO TID@0800,1200,1700 02/05/24 [History] Fluticasone Nasal [place] [Flonase Nasal [place]] 2 spray EA NOSTRIL HS@212902/05/24 [History] Furosemide [Lasix] 20 mg PO DAILY@0800 02/05/24 [History] Ipratropium-Albuterol Nebulize [Duoneb 0.5 mg-3 mg/3 ml Soln] 3 ml INHALATION RT-Q4H PRN 02/05/24 [History] Ipratropium-Albuterol Nebulize [Duoneb 0.5 mg-3 mg/3 ml Soln] 3 ml INHALATION RT-QID@00,06,12,18 02/05/24 [History] Lidocaine External Gel 4% 1 applic TOPICAL DAILY@0800 02/05/24 [History] Losartan [Cozaar] 25 mg PO DAILY@0800 02/05/24 [History] Magnesium Hydroxide [Milk of Magnesia Concentrate] 7,200 mg PO Q48H PRN 02/05/24 [History] Na Phos,M-B/Na Phos,Di-Ba [Fleet Adult] 133 ml RECTAL DAILY PRN 02/05/24 [History] Ondansetron [Zofran] 4 mg PO Q6H PRN 02/05/24 [History] Pantoprazole Sodium [Protonix] See Taper PO DIRECTED 02/05/24 [History] Polyvinyl Alcohol/Povidone [[place] Eye Drop] 1 applic BOTH EYES BID PRN 02/05/24 [History] Potassium Chloride ER [K-Dur 20] 20 meq PO DAILY@1700 02/05/24 [History] Saline Nasal Gel [[place] Nasal Gel] 1 applic EA NOSTRIL BID 02/05/24 [History] Sennosides [Senokot] 8.6 mg PO BID@0800,1700 02/05/24 [History] bisacodyL [Dulcolax] 10 mg RECTAL DAILY PRN 02/05/24 [History] Follow up Appointment(s)/Referral(s): Shameka Cat MD [STAFF PHYSICIAN] - 1 Week Hayden Lizarraga MD [Primary Care Provider] - 1-2 days [facility] [NON-STAFF] - As Needed [facility]charge [facility]: [facility]
== END 2024-02-09 18:38 | disposition hospice, inpatient (51) | DRG 871 ==
LOC: EC 12:38 → 3SCARD 14:44
PROVIDERS: ADMIT Internal Medicine Geriatric Medicine; ATTEND Internal Medicine Geriatric Medicine
DX: A41.9 Sepsis, unspecified organism (principal); E11.10 Type 2 diabetes mellitus with ketoacidosis without coma; N17.0 Acute kidney failure with tubular necrosis; J18.9 Pneumonia, unspecified organism; I21.A1 Myocardial infarction type 2; J96.21 Acute and chronic respiratory failure with hypoxia; K83.09 Other cholangitis; K80.00 Calculus of gallbladder with acute cholecystitis without obstruction; K82.1 Hydrops of gallbladder; L97.222 Non-pressure chronic ulcer of left calf with fat layer exposed; J44.0 Chronic obstructive pulmonary disease with (acute) lower respiratory infection; N39.0 Urinary tract infection, site not specified; Z66 Do not resuscitate; Z51.5 Encounter for palliative care; R53.1 Weakness; E86.0 Dehydration; I48.91 Unspecified atrial fibrillation; E11.51 Type 2 diabetes mellitus with diabetic peripheral angiopathy without gangrene; Z86.73 Personal history of transient ischemic attack (TIA), and cerebral infarction without residual deficits; E86.1 Hypovolemia; I10 Essential (primary) hypertension; E87.5 Hyperkalemia; N18.32 Chronic kidney disease, stage 3b; L98.492 Non-pressure chronic ulcer of skin of other sites with fat layer exposed; L98.491 Non-pressure chronic ulcer of skin of other sites limited to breakdown of skin; E11.22 Type 2 diabetes mellitus with diabetic chronic kidney disease; Z91.81 History of falling; G89.29 Other chronic pain; J43.9 Emphysema, unspecified; R74.8 Abnormal levels of other serum enzymes; K29.70 Gastritis, unspecified, without bleeding; K21.9 Gastro-esophageal reflux disease without esophagitis; K76.0 Fatty (change of) liver, not elsewhere classified; K76.89 Other specified diseases of liver; Z79.01 Long term (current) use of anticoagulants; Z79.82 Long term (current) use of aspirin; Z79.899 Other long term (current) drug therapy; Z99.81 Dependence on supplemental oxygen
CPT/HCPCS: 36415; 71046; 74181; 76705; 76770; 78227; 80053; 81001; 82150; 82533; 83605; 83690; 83735; 84145; 84484; 85025; 85027; 85610; 85730; 87040; 93005; 93306; 94640; 94660; 96361; 96365; 96366; 99291

== ENCOUNTER 2024-02-09 18:26 | Inpatient (IN) | payer MEDICAID ==
[2024-02-09] MEDS ORDERED: ARTIFICIAL TEARS-HYPROMELLOSE DROPS 15 ML BTL BOTH EYES PRN (18:31)
[2024-02-09] MEDS ORDERED: DRY MOUTH SPRAY 44.3 SPRAY/44.3 ML SPRAY MUCOUS MEM PRN (18:31)
[2024-02-09] MEDS ORDERED: GLYCOPYRROLATE 0.2 MG/ML 2 ML VIAL IVP PRN (18:31)
[2024-02-09] MEDS ORDERED: ACETAMINOPHEN SUPPOSITORY 650 MG SUPP RECTAL PRN (18:31)
[2024-02-09] MEDS ORDERED: ONDANSETRON 4 MG/2 ML VIAL IVP PRN (18:31)
[2024-02-09] MEDS: LORazepam 2 MG/ML INJ IV PRN (20:09)
[2024-02-09] MEDS: MORPHINE SULFATE (100 MG/2 ML) 100 MG in SODIUM CHLORIDE 0.9% 100 ML IV SCH (20:45)
[2024-02-09] MEDS: SCOPOLAMINE 1 MG/72 HR PATCH TRANSDERM SCH (20:55)
[2024-02-10] MEDS: LORazepam 1 MG TAB PO PRN (00:27)
[2024-02-10] MEDS: MORPHINE CONC SOLN 10mg/0.5mL ORAL SYRG SL PRN (00:27)
[2024-02-10] MEDS: ATROPINE OPHTH SOLN 1% 5ML BTL SUBLINGUAL PRN (03:54)
--- NOTE | 2024-02-10 07:21 | P.HPIM ---
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 She was transferred to [facility] 12/30/2023 after being hospitalized and treated at [facility] on December 04, 2023 where patient developed to have droopy face and lack of vision found to have thrombus stroke affecting the right [employer]PERVIS[employer]OM underwent mechanical thrombectomy and shortly after developed to have hemorrhagic transformation in the right [employer] territory with edema and mass effect was treated for over 2 weeks and finally was sent to rehab at [facility] on 12/30/2023 will continue to have significant lack of vision along with weakness in the left side with quite a bit debility. Patient is known to have advanced COPD on home O2 for long time steroid-d ependent and updraft treatment on more regular basis. Through the last few weeks developed to have significant decline physically and mentally developed in the last 5 days and to quit eating completely because of the claim that she is having worsening symptoms with nausea and abdominal fullness and discomfort which she did did not notify anybody about it until early or urgent blood work was done and showed significant acute kidney injury acute kidney failure with creatinine of 4.11 bun of 81 significant abnormal liver function test with alk phos 750 ALT 307 AST 214 total bili at 1.6 with lipase 257. Her white blood cell was 24,000 as well she was started on Zosyn and was diagnosed with sepsis possibly related to ascending cholangitis also acute kidney injury acute kidney failure with UTI, elevated troponin possible type II non-STEMI. Patient also has been complaining of severe increased pain and discomfort in the left leg area over small ulcerated area of the leg from not a clear etiology most likely vascular occlusive disease has been treated with topical care with mom with become quite painful lately. Family were notified with patient transfer early before she left [facility] they are aware of her condition at the time. 02/06/2024: Patient pain and discomfort is much better, with hydration kidney function has not improved much, also white blood cells still at 30,000, troponin at 0.177. Was seen and evaluated by general surgery who seen patient for possibly gallstone from her ultrasound but decided to do HIDA scan to define if she had any real function loss or significant inflammation in the gallbladder might require urgent surgery. Cardiology team patient for her elevated troponin no conclusion was that at this point, remain on Zosyn for her sepsis which is most likely urinary tract infection continue Zosyn for now till final culture is back. Nephrology be seen patient in consultation for the acute kidney injury and ATN despite not much improvement yet the kidney function will continue hydration ultrasound continue supportive care with IV fluid. 02/07/2024: Patient continues to decline kidney function has been little bit better but continue to require significant amount of fluid for hydration to keep her blood pressure above 100 systolic. She is scheduled for MRCP this morning review all labs and testing with the family including the 2 daughter and they understand the seriousness of her condition and currently with abnormal liver function test mildly elevated troponin with a significantly high white blood c ell diets out of coming from stroke recently has not helped so far. Still there is no source of infection currently with only exception if patient had mildly chance ascending cholangitis from the existing stone in the gallbladder and if one of the stone stuck in the common duct earlier before passing causing more problem with ascending cholangitis that will mostly cause gram-negative bacteremia which his blood culture so far is negative. Will continue supportive care for now continue hydration try to reverse the acute tubular necrosis. Patient is not making much urine which is another bad prognosis sign currently. 02/08/2024: She is resting on BiPAP restless turning from 1 side to another not comfortable. Her MRCP is still showing gallstones but no obstruction no mass in the pancreatic area no urgent need for any surgical repair patient might have had gallstone passed in the common duct created ascending cholangitis and she already passed it. Decline kidney function last 48 hours today has been better so far creatinine is down to 2.69 with GFR up to 16. The clinical picture is extremely bad at this point patient is wearing BiPAP all the time she looks more comfortable after long discussion with the family agree on pain management and control with easing up into possible hospice or comfort care before the end of the weekend for now decided to do morphine and Ativan to keep patient comfortable and keep her from having restlessness she is going to throw. Family also do not I do any more invasive testing or procedure and if kidney function decline more no dialysis will be done. Also she is not to be intubated or resuscitated with CODE STATUS change DO NOT RESUSCITATE. Remain on IV antibiotic with Zosyn cultures still negative at this point. Chain of event most likely that patient had passed gallstone into the common duct created ascending cholangitis becomes septic that cause her blood pressure to be low cause more pain so she becomes extremely sick not eating and drinking that create kidney function to decline and eventually cause her non-ST OR or type II OR. Full explanation to family with going on and that the extreme high mortality hamilton fuentes has at this point they understand and like to proceed with comfort care and management more than aggressive care. 02/09/2024: Accompanied with her family in the room the son and the daughter mary rivera is on BiPAP dozing off she is a semi-, currently resting comfortably still on Dilaudid IV and Ativan IV. Had long discussion with the family again about possibility of doing hospice they are going to talk to their siblings and get back with us the patient at this stage quite advanced there is a big possibility he might not survive the next 48 hours based on not being able to move her to any place at this point might do hospice in the room with [facility]. If agreeable will start morphine drip and take her off BiPAP and put her on higher flow oxygen via nasal cannula only. Patient was open and Admitted to [facility] on 02/09/2024 which will continue on pain management currently will hold BiPAP and continue comfort care. REVIEW OF SYSTEMS: CONSTITUTIONAL: Elderly is in quite bit restless mild respiratory distress. EYES: No icterus sclerae, no conjunctivitis. EARS, NOSE, MOUTH, THROAT, and FACE: No sore throat, lymphadenopathy, carotid bruits or deformity. RESPIRATORY: Decreased breath sound bilaterally with fine rhonchi slight cough and wheezes. CARDIOVASCULAR: Positive PND orthopnea palpitation slight edema. GASTROINTESTINAL: Significant abdominal distention with nausea vomiting no diarrhea or constipation but slight but bloating sensation discomfort. GENITOURINARY: Negative for Hematuria or UTI, no kidney stones. Significant decreased urine output with change in color. INTEGUMENT/BREAST: Negative for any muscular injury with mild osteoarthritis.. HEMATOLOGIC/LYMPHATIC: Negative for bleed or purpura. MUSCULOSKELTAL: Negative for Myalgia or arthralgia. Small ulcerated area on the left leg. NEURLOGICAL: No LOC, Sz or syncope, blurred vision dizziness or abnormality.. BEHAVIORAL/PSYCH: Negative. ENDOCRINE: Negative. PHYSICAL EXAMINATION: General Appearance: Elderly has slightly with high flow oxygen and semi-,. Neck HEENT: Supple, no lymphadenopathy, no thyroid enlargement, no carotid bruits. Lungs: Decreased breath sound bilaterally with rhonchi positive mild crackles in the bases positive mild expiratory wheezes. Chest Wall: Decreased expansion with deep inspiration no tenderness and no deformity was found on exam, no costochondral pain or discomfort. Heart: regular rate and rhythm, S1, S2 positive S3 positive systolic murmur. Slight tachycardia. Back: Symmetric, no curvature, ROM normal, no CVA tenderness. Abdomen: Soft positive bowel sounds slight tenderness and discomfort in the right upper quadrant area no rebound no rigidity. Extremities: Extremities normal, atraumatic, no cyanosis or edema. Small ulcerated area quite bit painful in the left leg. Pulses: 2+ and symmetric. Skin: Skin color, texture, tugor normal, no rashes or lesions. Neurologic: Mildly sedated and semi-, but not much response.. ASSESSMENT AND PLAN: __Acute on chronic respiratory failure: Secondary to end-stage advanced COPD become quite worsening with sepsis and stroke, continue BiPAP for now continue high flow O2 we decided to do hospice will wean her off BiPAP.. _Advanced COPD: Not able to do her regular inhaler continue BiPAP and continue her nebulizer. _Acute kidney injury secondary to severe acute tubular necrosis with severe dehydration kidney function had improved slightly yesterday and currently being comfort care only when not doing any further blood drawn. _Abdominal pain with intractable nausea and severe symptoms this is so far more acute on subacute and secondary to cholecystitis and cholelithiasis patient is a semi-, which is not having any further nausea or vomiting. _Acute cholecystitis with cholelithiasis: He is going for an MRCP to make sure is no other finding consistent with worsening problem in the [place] pancreatic area. _Severe leukocytosis: Combination of sepsis along with Steroid reaction continue to watch symptoms closely patient still on IV antibiotics. _Elevated troponin with possible type II non-STEMI: Still waiting for conclusion of cardiology. _Arrhythmia: With no sign of A-fib with RVR, review EKG Holter monitor looks perfectly fine at this point we will continue to watch for any tachycardia or arrhythmia. _UTI abnormal Urine test currently with the elevated white blood cell she is on Zosyn currently waiting for final culture. 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 _Severe gastritis and gastroesophageal reflux syndrome: Will continue pantoprazole and conservative management. _Nonhealing small ulcer on the left leg seen by wound clinic continue topical care. CODE STATUS: DO NOT RESUSCITATE and comfort care with hospice. Discussion: Long discussion with the family again she started doing inpatient hospice admitted on hospice look like her mortality is extremely high currently with her current condition. Past Medical History Past Medical History: COPD, Hypertension Additional Past Medical History / Comment(s): 3LPM IN History of Any Multi-Drug Resistant Organisms: None Reported Past Surgical History: No Surgical Hx Reported Past Anesthesia/Blood Transfusion Reactions: Unable to Obtain Type of Cardiac Device: Loop Device Placement Date:: Unsure of date per patient Past Psychological History: No Psychological Hx Reported Smoking Status: Former smoker Past Alcohol Use History: Daily Past Drug Use History: None Reported - Past Family History Mother Family Medical History: Cancer, Dementia Additional Family Medical History / Comment(s): Mother had breast cancer and passed from dementia. Medications and Allergies Home Medications Medication Instructions Recorded Confirmed Type Acetaminophen [Tylenol] 650 mg PO Q4H PRN 02/05/24 02/09/24 History Aspirin [Glenn Aspirin EC] 81 mg PO DAILY@0800 02/05/24 02/09/24 History Atorvastatin [Lipitor] 80 mg PO HS 02/05/24 02/09/24 History Budesonide [Pulmicort] 1 mg INHALATION RT-BID@0800,209902/05/24 02/09/24 History Cetirizine HCl [Zyrtec] 10 mg PO HS@209902/05/24 02/09/24 History Ensure Clear 120 ml PO TID@0800,1200,1700 02/05/24 02/09/24 History Fluticasone Nasal [place] [Flonase 2 spray EA NOSTRIL HS@2130 02/05/24 02/09/24 History Nasal Man[place]] Furosemide [Lasix] 20 mg PO DAILY@0800 02/05/24 02/09/24 History Ipratropium-Albuterol Nebulize 3 ml INHALATION RT-Q4H PRN 02/05/24 02/09/24 Hi story [Duoneb 0.5 mg-3 mg/3 ml Soln] Ipratropium-Albuterol Nebulize 3 ml INHALATION RT-QID@00,06,12,18 02/05/24 02/09/24 History [Duoneb 0.5 mg-3 mg/3 ml Soln] Lidocaine External Gel 4% 1 applic TOPICAL DAILY@0800 02/05/24 02/09/24 History Losartan [Cozaar] 25 mg PO DAILY@0800 02/05/24 02/09/24 History Magnesium Hydroxide [Milk of 7,200 mg PO Q48H PRN 02/05/24 02/09/24 History Magnesia Concentrate] Na Phos,M-B/Na Phos,Di-Ba [Fleet 133 ml RECTAL DAILY PRN 02/05/24 02/09/24 History Adult] Ondansetron [Zofran] 4 mg PO Q6H PRN 02/05/24 02/09/24 History Pantoprazole Sodium [Protonix] See Taper PO DIRECTED 02/05/24 02/09/24 History Polyvinyl Alcohol/Povidone 1 applic BOTH EYES BID PRN 02/05/24 02/09/24 History [[place] Eye Drop] Potassium Chloride ER [K-Dur 20] 20 meq PO DAILY@1700 02/05/24 02/09/24 History Saline Nasal Gel [[place] Nasal Gel] 1 applic EA NOSTRIL BID 02/05/24 02/09/24 History Sennosides [Senokot] 8.6 mg PO BID@0800,1700 02/05/24 02/09/24 History bisacodyL [Dulcolax] 10 mg RECTAL DAILY PRN 02/05/24 02/09/24 History Allergies Allergy/AdvReac Type Severity Reaction Status Date / Time No Known Allergies Allergy Verified 02/05/24 14:46 Physical Exam Vitals: Intake and Output 02/09/24 02/10/24 02/10/24 22:59 06:59 14:59 Intake Total 4.488 0 Balance 4.488 0 Intake: Intake, IV Titration 4.488 Amount Morphine Sulfate (100 mg/ 4.488 2 ml) 100 mg In Sodium Chloride 0.9% 100 ml @ 1 MG/HR 1.02 mls/hr IV . Q24H [facility] Rx#:[id number] Oral 0 Other: Weight 43.5 kg
[2024-02-10 08:59] VITALS: TEMP 97.5
[2024-02-10 15:29] VITALS: BP 105/88
[2024-02-10 15:35] VITALS: BMI 17.5
[2024-02-11 00:13] VITALS: RESP 3
[2024-02-11] MEDS: MORPHINE CONC SOLN 10mg/0.5mL ORAL SYRG SL PRN (14:34)
--- NOTE | 2024-02-11 23:35 | P.PN ---
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 Patient is known to have advanced COPD on home O2 for long time steroid-depende nt and updraft treatment on more regular basis. Through the last few weeks developed to have significant decline physically and mentally developed in the last 5 days and to quit eating completely because of the claim that she is having worsening symptoms with nausea and abdominal fullness and discomfort which she did did not notify anybody about it until early or urgent blood work was done and showed significant acute kidney injury acute kidney failure with creatinine of 4.11 bun of 81 significant abnormal liver function test with alk phos 750 ALT 307 AST 214 total bili at 1.6 with lipase 257. Her white blood cell was 24,000 as well she was started on Zosyn and was diagnosed with sepsis possibly related to ascending cholangitis also acute kidney injury acute kidney failure with UTI, elevated troponin possible type II non-STEMI. Patient also has been complaining of severe increased pain and discomfort in the left leg area over small ulcerated area of the leg from not a clear etiology most likely vascular occlusive disease has been treated with topical care with mom with become quite painful lately. Family were notified with patient transfer early before she left [facility] they are aware of her condition at the time. 02/06/2024: Patient pain and discomfort is much better, with hydration kidney function has not improved much, also white blood cells still at 30,000, troponin at 0.177. Was seen and evaluated by general surgery who seen patient for possibly gallstone from her ultrasound but decided to do HIDA scan to define if she had any real function loss or significant inflammation in the gallbladder might require urgent surgery. Cardiology team patient for her elevated troponin no conclusion was that at this point, remain on Zosyn for her sepsis which is most likely urinary tract infection continue Zosyn for now till final culture is back. Nephrology be seen patient in consultation for the acute kidney injury and ATN despite not much improvement yet the kidney function will continue hydration ultrasound continue supportive care with IV fluid. 02/07/2024: Patient continues to decline kidney function has been little bit better but continue to require significant amount of fluid for hydration to keep her blood pressure above 100 systolic. She is scheduled for MRCP this morning review all labs and testing with the family including the 2 daughter and they understand the seriousness of her condition and currently with abnormal liver function test mildly elevated troponin with a significantly high white blood cell diets out of coming from stroke recently has not helped so far. Still there is no source of infection currently with only exception if patient had mildly chance ascending cholangitis from the existing stone in the gallbladder and if one of the stone stuck in the common duct earlier before passing causing more problem with ascending cholangitis that will mostly cause gram-negative bacteremia which his blood culture so far is negative. Will continue supportive care for now continue hydration try to reverse the acute tubular necrosis. Patient is not making much urine which is another bad prognosis sign currently. 02/08/2024: She is resting on BiPAP restless turning from 1 side to another not comfortable. Her MRCP is still showing gallstones but no obstruction no mass in the pancreatic area no urgent need for any surgical repair patient might have had gallstone passed in the common duct created ascending cholangitis and she already passed it. Decline kidney function last 48 hours today has been better so far creatinine is down to 2.69 with GFR up to 16. The clinical picture is extremely bad at this point patient is wearing BiPAP all the time she looks more comfortable after long discussion with the family agree on pain management and control with easing up into possible hospice or comfort care before the end of the weekend for now decided to do morphine and Ativan to keep patient comfortable and keep her from having restlessness she is going to throw. Family also do not I do any more invasive testing or procedure and if kidney function decline more no dialysis will be done. Also she is not to be intubated or resuscitated with CODE STATUS change DO NOT RESUSCITATE. Remain on IV antibiotic with Zosyn cultures still negative at this point. Chain of event most likely that patient had passed gallstone into the common duct created ascending cholangitis becomes septic that cause her blood pressure to be low cause more pain so she becomes extremely sick not eating and drinking that create kidney function to decline and eventually cause her non-ST ID or type II ID. Full explanation to family with going on and that the extreme high mortality patient has at this point they understand and like to proceed with comfort care and management more than aggressive care. 02/09/2024: Accompanied with her family in the room the son and the daughter patient is on BiPAP dozing off she is a semi-, currently resting comfortably still on Dilaudid IV and Ativan IV. Had long discussion with the family again about possibility of doing hospice they are going to talk to their siblings and get back with us the patient at this stage quite advanced there is a big possibility he might not survive the next 48 hours based on not being able to move her to any place at this point might do hospice in the room with [facility]. If agreeable will start morphine drip and take her off BiPAP and put her on higher flow oxygen via nasal cannula only. Patient was open and Admitted to [facility] on 02/09/2024 which will continue on pain management currently will hold BiPAP and continue comfort care. 02/11/2024: Patient is resting comfortably in bed she is in semi-, required pain meds [id number] has been off BiPAP she is on nasal cannula 2 to 3 L at the time pulse ox is not measuring more. Surrounding by her family she is comfortable on hospice care currently we will continue supportive care only no aggressive management. REVIEW OF SYSTEMS: CONSTITUTIONAL: Elderly is in, currently not much pain. EYES: No icterus sclerae, no conjunctivitis. EARS, NOSE, MOUTH, THROAT, and FACE: No sore throat, lymphadenopathy, carotid bruits or deformity. RESPIRATORY: Decreased breath sound bilaterally with fine rhonchi slight cough and wheezes. CARDIOVASCULAR: Positive PND orthopnea palpitation slight edema. GASTROINTESTINAL: Significant abdominal distention with nausea vomiting no diarrhea or constipation but slight but bloating sensation discomfort. GENITOURINARY: Negative for Hematuria or UTI, no kidney stones. Significant decreased urine output with change in color. INTEGUMENT/BREAST: Negative for any muscular injury with mild osteoarthritis.. HEMATOLOGIC/LYMPHATIC: Negative for bleed or purpura. MUSCULOSKELTAL: Negative for Myalgia or arthralgia. Small ulcerated area on the left leg. NEURLOGICAL: No LOC, Sz or syncope, blurred vision dizziness or abnormality.. BEHAVIORAL/PSYCH: Negative. ENDOCRINE: Negative. PHYSICAL EXAMINATION: General Appearance: Elderly man, currently on high flow oxygen does not look in any pain. Neck HEENT: Supple, no lymphadenopathy, no thyroid enlargement, no carotid bruits. Lungs: Decreased breath sound bilaterally with rhonchi positive mild crackles in the bases positive mild expiratory wheezes. Chest Wall: Decreased expansion with deep inspiration no tenderness and no deformity was found on exam, no costochondral pain or discomfort. Heart: regular rate and rhythm, S1, S2 positive S3 positive systolic murmur. Slight tachycardia. Back: Symmetric, no curvature, ROM normal, no CVA tenderness. Abdomen: Soft positive bowel sounds slight tenderness and discomfort in the right upper quadrant area no rebound no rigidity. Extremities: Extremities normal, atraumatic, no cyanosis or edema. Small ulcerated area quite bit painful in the left leg. Pulses: 2+ and symmetric. Skin: Skin color, texture, tugor normal, no rashes or lesions. Neurologic: Mildly sedated and semi-, but not much response.. ASSESSMENT AND PLAN: __Acute on chronic respiratory failure: Secondary to end-stage advanced COPD become quite worsening with sepsis and stroke, continue BiPAP for now continue high flow O2 we decided to do hospice will wean her off BiPAP.. Continue oxygen on BiPAP. _Advanced COPD: Patient under hospice care currently continue comfort care only. _Acute kidney injury secondary to severe acute tubular necrosis with severe dehydration remain again on conservative management no aggressive management or treatment. _Abdominal pain with intractable nausea and severe symptoms this is so far more acute on subacute and secondary to cholecystitis and cholelithiasis patient is a semi-, which is not having any further nausea or vomiting. _Acute cholecystitis with cholelithiasis: He is going for an MRCP to make sure is no other finding consistent with worsening problem in the [place] pancreatic area. _Severe leukocytosis: Combination of sepsis along with Steroid reaction continue to watch symptoms closely patient still on IV antibiotics. _Elevated troponin with possible type II non-STEMI: Still waiting for conclusion of cardiology. _Arrhythmia: With no sign of A-fib with RVR, review EKG Holter monitor looks perfectly fine at this point we will continue to watch for any tachycardia or arrhythmia. _UTI abnormal Urine test currently with the elevated white blood cell she is on Zosyn currently waiting for final culture. 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 _Severe gastritis and gastroesophageal reflux syndrome: Will continue pantoprazole and conservative management. _Nonhealing small ulcer on the left leg seen by wound clinic continue topical care. CODE STATUS: DO NOT RESUSCITATE hospice care. Discussion: Patient is on hospice care terminal on morphine and Ativan for comfort care only she started having Remy-Ortega breathing with mortality in the next 24 to 48 hours is very high. Objective - Vital Signs Vital signs: Vital Signs Temp 97.5 F L 02/10/24 08:00 Pulse 51 L 02/11/24 20:00 Resp 3 L 02/11/24 20:00 BP 105/88 02/10/24 15:27 Pulse Ox 78 L 02/10/24 20:00 FiO2 Intake & Output 02/11/24 02/11/24 02/12/24 06:59 18:59 06:59 Intake Total 0 Output Total 0 Balance 0 0 Intake: Oral 0 Output: Urine 0 Other: Voiding Method Indwelling Catheter Indwelling Catheter Indwelling Catheter # Voids 0
[2024-02-12 06:10] VITALS: PULSE 36
== END 2024-02-12 11:04 | disposition expired | DRG 951 ==
LOC: 3SCARD 18:40
PROVIDERS: ADMIT Internal Medicine Geriatric Medicine; ATTEND Internal Medicine Geriatric Medicine
DX: Z51.5 Encounter for palliative care (principal); J96.20 Acute and chronic respiratory failure, unspecified whether with hypoxia or hypercapnia; N17.0 Acute kidney failure with tubular necrosis; A41.9 Sepsis, unspecified organism; I21.A1 Myocardial infarction type 2; K80.12 Calculus of gallbladder with acute and chronic cholecystitis without obstruction; L97.829 Non-pressure chronic ulcer of other part of left lower leg with unspecified severity; N39.0 Urinary tract infection, site not specified; N18.32 Chronic kidney disease, stage 3b; J44.9 Chronic obstructive pulmonary disease, unspecified; I70.248 Atherosclerosis of native arteries of left leg with ulceration of other part of lower leg; Z99.81 Dependence on supplemental oxygen; Z66 Do not resuscitate; I13.10 Hypertensive heart and chronic kidney disease without heart failure, with stage 1 through stage 4 chronic kidney disease, or unspecified chronic kidney disease; E86.0 Dehydration; I49.9 Cardiac arrhythmia, unspecified; K21.9 Gastro-esophageal reflux disease without esophagitis; K29.70 Gastritis, unspecified, without bleeding; G89.29 Other chronic pain; R29.6 Repeated falls; M54.50 Low back pain, unspecified; E78.5 Hyperlipidemia, unspecified; Z87.891 Personal history of nicotine dependence; Z79.82 Long term (current) use of aspirin; Z79.51 Long term (current) use of inhaled steroids; Z91.81 History of falling; Z86.73 Personal history of transient ischemic attack (TIA), and cerebral infarction without residual deficits; Z79.899 Other long term (current) drug therapy